=== PATIENT | male | born 1960 | race Caucasian/White ===

== ENCOUNTER 2018-08-04 13:49 | Emergency (ER) | payer MEDICARE ==
[2018-08-04 15:08] LABS: Bilirubin Negative (Negative); Blood, Urine Large (Negative); Clarity TURBID (Clear); Glucose, Urine (Dipstick) Negative (Negative); Leukocyte Large (Negative); Nitrite Positive (Negative); Protein, Urine (Dipstick) 100 mg/dL (Neg-Trace); Specific Gravity, Urine 1.011 (1.002-1.036); pH, Urine 8.5 (5.0-9.0)
[2018-08-04 15:10] LABS: Bacteria/HPF 4+ HPF (None Seen)
[2018-08-04 15:16] LABS: Pathc Cast-AUWi Flag 12.03 (0-2.49); Yeast-AUWi Flag 156.8 (0-25.0)
[2018-08-04 15:26] LABS: Crystals/HPF 3+ AMORPH PHOS HPF (Negative); Hyaline Casts/LPF 0-3 HYALINE CAST LPF (0-3 Hyaline); Yeast-All Forms None Seen HPF (None Seen)
[2018-08-04 15:33] LABS: #Eosinphils 0.2 thou/uL (0.0-0.7); #Lymphocytes 0.7 thou/uL (1.20-3.40); #Monocytes 0.5 thou/uL (0.11-0.59); #Neutrophils 7.1 thou/uL (1.40-6.50); %Basophils 0.2 % (0.0-1.0); %Eosinophils 2.3 % (0.0-10.0); %Lymphocytes 8.2 % (21.0-51.0); %Monocytes 5.9 % (0.0-10.0); %Neutrophils 83.3 % (42.0-75.0); Mean Corpuscular HGB CONC 33.9 g/dL (32.0-36.0); Mean Corpuscular Hemoglobin 31.6 pg (27.0-31.0); Mean Corpuscular Volume 93.1 fL (78.0-98.0); Mean Platelet Volume 7.6 fL (7.4-10.4); Platelet Count 298 thou/uL (130-400); RBC Distribution Width 12.4 % (11.5-14.5); Red Blood Cell (RBC) Count 4.13 mill/uL (4.70-6.10); White Blood Cell (WBC) Count 8.6 thou/uL (4.8-10.8)
[2018-08-04 15:53] LABS: ALT (SGPT) 17 U/L (8-55); AST (SGOT) 18 U/L (5-34); Alkaline Phosphatase 98 U/L (40-150); Anion Gap 14 mmol/L (10-20); BUN (Urea Nitrogen) 14 mg/dL (8.4-25.7); Bilirubin, Total 0.5 mg/dL (0.2-1.2); Calc. Creatinine Clearance 0 mL/min (70-130); Calcium 9.4 mg/dL (7.8-10.44); Carbon Dioxide 23 mmol/L (22-29); Chloride 102 mmol/L (98-107); Estimated GFR-MDRD Greater than 90; Globulin 3.6 g/dL (2.4-3.5); Glucose 103 mg/dL (70-105); Potassium 3.7 mmol/L (3.5-5.1); Protein, Total 7.6 g/dL (6.0-8.3); Sodium 135 mmol/L (136-145)
== END 2018-08-04 17:14 | disposition home or self-care (01) ==
LOC: ERS 13:49
DX: Z46.6 Encounter for fitting and adjustment of urinary device (principal); N39.0 Urinary tract infection, site not specified; I10 Essential (primary) hypertension
CPT/HCPCS: 36415; 51702; 80053; 81003; 81015; 83605; 85025; 87077; 87086; 87186

== ENCOUNTER 2018-08-06 16:37 | Emergency (ER) | payer MEDICARE | END 2018-08-06 17:54 | disposition home or self-care (01) | LOC: ERS 16:37 | DX: T83.031A Leakage of indwelling urethral catheter, initial encounter (principal); I10 Essential (primary) hypertension; F17.220 Nicotine dependence, chewing tobacco, uncomplicated; Z79.899 Other long term (current) drug therapy | CPT/HCPCS: 99283 ==

== ENCOUNTER 2018-08-07 13:12 | Emergency (ER) | payer MEDICARE ==
[2018-08-07 15:01] LABS: Bilirubin Negative (Negative); Blood, Urine Small (Negative); Clarity CLEAR (Clear); Glucose, Urine (Dipstick) Negative (Negative); Leukocyte Small (Negative); Nitrite Negative (Negative); Protein, Urine (Dipstick) Negative (Neg-Trace); Specific Gravity, Urine 1.003 (1.002-1.036); Urobilinogen 0.2 mg/dL (0.2-1.0)
[2018-08-07 15:03] LABS: Bacteria/HPF None Seen HPF (None Seen); Hyaline Casts/LPF 0-3 HYALINE CAST LPF (0-3 Hyaline); Pathc Cast-AUWi Flag 0.29 (0-2.49); RBC/HPF 0-3 HPF (0-3); Squamous Epithelial 0-3 HPF (0-3); WBC/HPF 0-3 HPF (0-3)
== END 2018-08-07 15:20 | disposition home or self-care (01) ==
LOC: ERS 13:12
DX: R32 Unspecified urinary incontinence (principal); I10 Essential (primary) hypertension; F17.220 Nicotine dependence, chewing tobacco, uncomplicated
CPT/HCPCS: 51702; 81003; 81015; 87086

== ENCOUNTER 2020-05-17 14:16 | Emergency (ER) | payer MEDICARE | END 2020-05-17 17:25 | disposition home or self-care (01) | LOC: ERS 14:16 | DX: L89.152 Pressure ulcer of sacral region, stage 2 (principal); I10 Essential (primary) hypertension; Z86.73 Personal history of transient ischemic attack (TIA), and cerebral infarction without residual deficits; F32.9 Major depressive disorder, single episode, unspecified; F17.220 Nicotine dependence, chewing tobacco, uncomplicated; Z79.899 Other long term (current) drug therapy | CPT/HCPCS: 99283 ==

== ENCOUNTER 2020-06-27 15:37 | Inpatient (IN) | payer MEDICARE ==
[~2020-06-27 15:37] MED LIST: Iopamidol-370 76% 500 ML 1 ML ONE
[2020-06-27] MEDS ORDERED: Heparin 1,000 UNITS/ML VIAL ONE (16:08)
[2020-06-27 18:10] LABS: #Eosinphils 0.2 thou/uL (0.0-0.7); #Lymphocytes 0.7 thou/uL (1.20-3.40); #Monocytes 0.5 thou/uL (0.11-0.59); %Basophils 0.3 % (0.0-1.0); %Lymphocytes 8.6 % (21.0-51.0); %Monocytes 6.1 % (0.0-10.0); %Neutrophils 83.1 % (42.0-75.0); Hemoglobin 14.2 g/dL (14.0-18.0); Mean Corpuscular HGB CONC 34.1 g/dL (32.0-36.0); Mean Corpuscular Hemoglobin 32.7 pg (27.0-31.0); Mean Corpuscular Volume 95.9 fL (78.0-98.0); Mean Platelet Volume 6.6 fL (7.4-10.4); Platelet Count 457 thou/uL (130-400); RBC Distribution Width 11.4 % (11.5-14.5); Red Blood Cell (RBC) Count 4.33 mill/uL (4.70-6.10); White Blood Cell (WBC) Count 8.5 thou/uL (4.8-10.8)
[2020-06-27 18:35] LABS: ALT (SGPT) 7 U/L (8-55); AST (SGOT) 12 U/L (5-34); Albumin 3.7 g/dL (3.5-5.0); Alkaline Phosphatase 110 U/L (40-110); Anion Gap 17 mmol/L (10-20); BUN (Urea Nitrogen) 13 mg/dL (8.4-25.7); Bilirubin, Total 0.2 mg/dL (0.2-1.2); Calc. Creatinine Clearance 0 mL/min (70-130); Carbon Dioxide 22 mmol/L (22-29); Chloride 100 mmol/L (98-107); Globulin 3.8 g/dL (2.4-3.5); Glucose 107 mg/dL (70-105); Potassium 3.7 mmol/L (3.5-5.1); Protein, Total 7.5 g/dL (6.0-8.3); Sodium 135 mmol/L (136-145)
[2020-06-27] MEDS ORDERED: Clindamycin/D5W 900 mg/50 ml Premix Bag ONE ×2 (20:46→20:47)
--- NOTE | 2020-06-27 20:53 | CT ---
CT ABDOMEN WITH CONTRAST CT PELVIS WITH CONTRAST: DATE: 06/27/2020 HISTORY: 59-year-old male with sacral ulcer COMPARISON: None TECHNIQUE: IV injection of iodinated contrast media: administered. Oral contrast media:Not administered FINDINGS: There is a superficial soft tissue defect consistent with ulcer, at the intergluteal fold, with skin thickening, contiguous with an approximately 4 x 1 x 4 cm slightly low-attenuation lesion surrounded by thick irregular soft tissue attenuation, between the coccyx and the intergluteal fold. The soft tissue density material fans out right and left laterally, with surrounding fat stranding. No kaylah bone destruction identified involving sacrum or coccyx. Multilevel high-grade degenerative disc disease and facet DJD throughout lumbar spine. No compression fracture. Moderate to large volume of stool throughout rectosigmoid colon. No free fluid or abscess within the pelvic cavity. No major pathology of kidneys, adrenals, pancreas, liver, or spleen. Normal appendix. Nonspecific mild mural thickening of urinary bladder. No consolidation at lung bases. No pleural effusion. No small bowel dilation or colonic diverticulitis. IMPRESSION: 1) sacral decubitus ulcer, deep to which there is phlegmon or abscess in the soft tissues around and posterior to the sacrococcygeal junction and coccyx. 2) high-grade lumbar spondylosis
[2020-06-27] MEDS ORDERED: Piperacillin/Tazobactam 4.5 GM VIAL ONE (21:51)
[2020-06-27] MEDS ORDERED: Communication Order-Pharmacy FS SCH (22:04)
--- NOTE | 2020-06-27 22:38 | PDOC.BPN ---
- Brief Progress Note [id number] HP
--- NOTE | 2020-06-27 23:19 | HP ---
CHIEF COMPLAINT: Infected/nonhealing sacral wound. HISTORY OF PRESENT ILLNESS: Mr. Rodriguez is a 59-year-old male, with history of CVA and complicated right knee surgery in the past that has left him debilitated and unable to walk, bedridden. The patient's daughter reports that he started having breakdown near the sacral area over the last week or 2 that gradually worsened, spread, involving the gluteal cleft and surrounding tissues. It was also reported that the patient had foul smelling discharge. The patient also reported breakdown of the right posterior heel and the medial heel from prolonged immobility. The patient has been doing well as per daughter. No reported fever or chills. Workup in the emergency room including CT abdomen and pelvis showed sacral decubitus ulcer, deep, which the phlegmon or abscess is in the soft tissues around and posterior to the sacrococcygeal junction and coccyx. Also did show high-grade lumbar stenosis. Lab work, the patient has a sodium of 135, BUN 13, creatinine 0.6, glucose 107. Lactic acid 1.9. WBC is 9.5, hemoglobin 14.2, platelets 457. The patient is having speech issues/aphasia, unable to give any history. The ED physician consulted with surgeon, who will see the patient for consultation. The patient is on IV antibiotics. The patient has been admitted to the hospital for further management. PAST MEDICAL HISTORY: 1. CVA with residual aphasia and weakness. 2. Hypertension. 3. Gout. PAST SURGICAL HISTORY: Knee surgery, right knee x2. FAMILY HISTORY: Reviewed and noncontributory. HOME MEDICATIONS: Please see home medication reconciliation form for updated medications. PAST PSYCHIATRIC HISTORY: Depression. SOCIAL HISTORY: No history of drug use or alcohol use. The patient is a former tobacco user, chews tobacco. Quit smoking less than 10 years ago. FAMILY HISTORY: Reviewed and noncontributory. ALLERGIES: NO KNOWN ALLERGIES. REVIEW OF SYSTEMS: Unable to obtain due to the patient's underlying medical condition. PHYSICAL EXAMINATION: GENERAL: The patient is awake, aphasic, unable to give any history. VITAL SIGNS: Blood pressure 140/90, pulse is 86, respiratory rate is 18, oxygen saturation is 100% on room air, and temperature is 99.2. HEAD AND NECK: Normocephalic. NECK: Supple. CHEST: Fair bilateral air entry. HEART: S1, S2. Regular. ABDOMEN: Soft and nontender. Bowel sounds present. NEUROLOGIC: The patient is awake, aphasic, weak in four extremities. SKIN: There is a right posterior heel with skin breakdown, nonpitting edema in the right leg, skin breakdown/ulcer with discharge, sacral area, with surrounding erythema. GENITOURINARY: No suprapubic tenderness. No flank tenderness. LABORATORY DATA: As mentioned above in the history of present illness. IMAGING STUDIES: As mentioned above in the history of present illness. ASSESSMENT: 1. Infected/nonhealing sacral decubitus wound/ulcer. 2. History of cerebrovascular accident with residual weakness and failure. 3. Hypertension. 4. Gout. PLAN: 1. Admit. 2. Septic workup including wound cultures. 3. IV antibiotics. 4. Surgery consulted for further management. 5. Consult Wound Care. 6. Reconcile home medications. 7. DVT prophylaxis as appropriate. 8. Expected length of stay, 2 midnights or more. 9. Case discussed with ED physician and the patient's daughter. Job ID: [id number]
[2020-06-28 00:37] VITALS: BMI 38.9
[2020-06-28] MEDS: Sodium Chloride 0.9% 1,000 ML IV SCH ×2 (01:00→12:44)
[2020-06-28] MEDS: Clindamycin/D5W 600 MG in Premix Bag 1 BAG IVPB SCH ×3 (06:21→20:55)
--- NOTE | 2020-06-28 08:22 | CON ---
DATE OF CONSULTATION: 06/28/2020 CHIEF COMPLAINT: Septic decubitus of sacrum. HISTORY OF PRESENT ILLNESS: The patient is a 59-year-old male with a history of CVA, who is unable to ambulate, he is bedbound, he has developed a decubitus ulcer on his sacrum which has become very necrotic. I have been asked to see him for debridement. PAST MEDICAL HISTORY: Significant for hypertension, gout, and history of CVA. PAST SURGICAL HISTORY: Knee surgery. MEDICATIONS: Include: 1. Flonase. 2. Finasteride. 3. Calan. 4. Omeprazole. 5. Lasix. PHYSICAL EXAMINATION: VITAL SIGNS: Temperature 98.4, pulse 73, blood pressure 105/70. GENERAL: He will respond to voice. He is pretty lethargic. Lying still. He is obese. LUNGS: Clear. HEART: Regular rate and rhythm. ABDOMEN: Soft, nondistended, nontender. BACK: He has about a 15-cm sacral decubitus with necrotic tissue. EXTREMITIES: Unremarkable. DIAGNOSTIC STUDIES: His CT scan showed some fluid collections consistent with possible abscess. ASSESSMENT: Septic decubitus. PLAN: Debridement. Job ID: [id number]
[2020-06-28] MEDS: Cefepime 2 GM in Sodium Chloride 0.9% 100 ML IVPB SCH ×2 (09:10→20:54)
[2020-06-28] MEDS ORDERED: Rocuronium Bromide 10 MG/ML (10ML VIAL) ONE (11:26)
[2020-06-28] MEDS ORDERED: Lidocaine 1% PF 5 ML VIAL ONE (11:26)
[2020-06-28] MEDS ORDERED: Dexamethasone 20 MG/5 ML VIAL ONE (11:26)
[2020-06-28] MEDS ORDERED: PROPOFOL 200 MG/20 ML VIAL ONE (11:26)
[2020-06-28 13:07] LABS: SARS-CoV-2 MS2 Positive; SARS-CoV-2 N Gene Negative; SARS-CoV-2 S Gene Negative; SARS-CoV-2 by NAA Not Detected (NotDetected); SARS-CoV-2 orf1ab Negative
[2020-06-28] MEDS ORDERED: Clindamycin/D5W 600 mg/50 ml Premix Bag ONE (14:52)
[2020-06-28] MEDS ORDERED: Fentanyl 250 MCG/5 ML VIAL ONE (15:04)
[2020-06-28] MEDS ORDERED: Morphine 4 MG/ML VIAL SLOW IVP SCH (16:00)
[2020-06-28] MEDS ORDERED: Ondansetron HCl/PF 4 MG/2 ML Vial IVP PRN (16:07)
[2020-06-28] MEDS ORDERED: Promethazine HCl 25 MG/ML VIAL IM PRN (16:07)
[2020-06-28] MEDS ORDERED: HYDROmorphone 2 MG/ML VIAL SLOW IVP PRN (16:07)
[2020-06-28] MEDS ORDERED: Promethazine HCl 25 MG/ML VIAL SLOW IVP PRN (16:07)
--- NOTE | 2020-06-28 19:14 | OP ---
DATE OF PROCEDURE: 06/28/2020 PREOPERATIVE DIAGNOSIS: Septic sacral decubitus. PROCEDURE PERFORMED: Sharp debridement of sacral decubitus. INDICATIONS: This is a 59-year-old male who is status post CVA, bedridden, developed a sacral decubitus. FINDINGS: 6 x 8 x 4 cm necrotic decubitus to the periosteum. DESCRIPTION OF PROCEDURE: After informed consent was obtained, the patient was taken to the operating room, given general endotracheal anesthesia, placed in the right lateral decubitus position. His gluteal area was prepped and draped in usual fashion. Using 10 blade, 15 blade bone rongeurs, the necrotic tissue was sharply debrided, got into a little fluid which was sent for culture. The necrotic tissue was completely excised down to bleeding tissue. Bleeding was then controlled utilizing electrocautery, and the wound was thoroughly irrigated with saline. The cavity was measured at 8 x 6 x 4 cm deep. Surgicel was then applied to the cavities of the lining and then dry sterile gauze. The patient tolerated the procedure well, transferred to Recovery in fair condition. Job ID: [id number]
--- NOTE | 2020-06-28 20:25 | PDOC.HOSPP ---
- Subjective Encounter Date: 06/28/20 - Objective Vital Signs & Weight: Vital Signs (12 hours) Temp Pulse Resp BP Pulse Ox 06/28/20 19:54 98.7 F 68 19 100/67 94 L 06/28/20 11:30 98.4 F 77 20 109/73 95 Weight Admit Weight 220 lb 2 oz Weight 220 lb 2 oz I&O: 06/27/20 06/28/20 06/29/20 06:59 06:59 06:59 Intake Total 1650 1140 Balance 1650 1140 Result Diagrams: 06/27/20 17:50 06/27/20 17:50 Hospitalist ROS - Medication Medications: Active Medications Generic Name Dose Route Start Last Admin Trade Name Freq PRN Reason Stop Dose Admin Sodium Chloride 1,000 mls @ 75 mls/hr 06/27/20 22:15 06/28/20 12:44 Normal Saline 0.9% IV Not Given .[id number] SUZANNA Cefepime HCl 2 gm/ Sodium 100 mls @ 200 mls/hr 06/28/20 09:00 06/28/20 09:10 Chloride IVPB 100 mls Q12HR SUZANNA Administration Clindamycin Phosphate/Dextrose 50 mls @ 100 mls/hr 06/28/20 06:00 06/28/20 15:29 600 mg/ Device IVPB Not Given Q8HR SUZANNA Sodium Chloride 10 ml 06/28/20 09:00 06/28/20 09:16 Flush - Normal Saline 10 Ml Syringe IVF Not Given Q12HR SUZANNA - Exam General Appearance: awake alert ENT: normocephalic atraumatic Neck: supple, no JVD Respiratory: normal chest expansion, no tachypnea Gastrointestinal: soft Extremities: no cyanosis, no clubbing Hosp A/P (1) Sacral decubitus ulcer Code(s): L89.159 - PRESSURE ULCER OF SACRAL REGION, UNSPECIFIED STAGE Status: Acute (2) H/O: CVA (cerebrovascular accident) Code(s): Z86.73 - PRSNL HX OF TIA (TIA), AND CEREB INFRC W/O RESID DEFICITS Status: Acute (3) HTN (hypertension) Code(s): I10 - ESSENTIAL (PRIMARY) HYPERTENSION Status: Acute - Plan S/P Debridement of the decubitus ulcer. Wound care consult. On emperic ABx.
[2020-06-29] MEDS: Sodium Chloride 0.9% 1,000 ML IV SCH ×3 (04:31→20:05)
[2020-06-29 05:22] LABS: #Lymphocytes 0.7 thou/uL (1.20-3.40); #Monocytes 0.3 thou/uL (0.11-0.59); #Neutrophils 5.7 thou/uL (1.40-6.50); %Basophils 0.6 % (0.0-1.0); %Eosinophils 0.1 % (0.0-10.0); %Lymphocytes 10.6 % (21.0-51.0); %Monocytes 4.5 % (0.0-10.0); %Neutrophils 84.1 % (42.0-75.0); Hemoglobin 11.8 g/dL (14.0-18.0); Mean Corpuscular HGB CONC 34.4 g/dL (32.0-36.0); Mean Corpuscular Hemoglobin 32.7 pg (27.0-31.0); Mean Corpuscular Volume 95.1 fL (78.0-98.0); Mean Platelet Volume 6.5 fL (7.4-10.4); Platelet Count 410 thou/uL (130-400); RBC Distribution Width 11.2 % (11.5-14.5); Red Blood Cell (RBC) Count 3.61 mill/uL (4.70-6.10); White Blood Cell (WBC) Count 6.7 thou/uL (4.8-10.8)
[2020-06-29 05:34] LABS: Anion Gap 13 mmol/L (10-20); BUN (Urea Nitrogen) 9 mg/dL (8.4-25.7); Calc. Creatinine Clearance 195 mL/min (70-130); Calcium 8.8 mg/dL (7.8-10.44); Carbon Dioxide 24 mmol/L (22-29); Chloride 103 mmol/L (98-107); Glucose 101 mg/dL (70-105); Sodium 136 mmol/L (136-145)
[2020-06-29] MEDS: Clindamycin/D5W 600 MG in Premix Bag 1 BAG IVPB SCH ×3 (05:48→21:42)
[2020-06-29] MEDS: Cefepime 2 GM in Sodium Chloride 0.9% 100 ML IVPB SCH ×2 (10:04→20:05)
[2020-06-29] MEDS: Morphine 2 MG/ML VIAL SLOW IVP PRN ×2 (10:31→18:32)
--- NOTE | 2020-06-29 14:01 | PDOC.HOSPP ---
- Subjective Encounter Date: 06/29/20 - Objective Vital Signs & Weight: Vital Signs (12 hours) Temp Pulse Resp BP Pulse Ox 06/29/20 12:20 97.8 F 70 18 132/84 99 06/29/20 07:51 98.3 F 59 L 18 125/81 98 06/29/20 04:53 98.3 F 65 19 107/73 95 Weight Admit Weight 220 lb 2 oz Weight 220 lb 2 oz I&O: 06/28/20 06/29/20 06/30/20 06:59 06:59 06:59 Intake Total 1649 2039 Balance 1649 2039 Result Diagrams: 06/29/20 05:00 06/29/20 05:00 Hospitalist ROS - Medication Medications: Active Medications Generic Name Dose Route Start Last Admin Trade Name Freq PRN Reason Stop Dose Admin Sodium Chloride 1,000 mls @ 75 mls/hr 06/27/20 22:15 06/29/20 04:31 Normal Saline 0.9% IV Not Given .[id number] SUZANNA Cefepime HCl 2 gm/ Sodium 100 mls @ 200 mls/hr 06/28/20 09:00 06/29/20 10:04 Chloride IVPB 100 mls Q12HR SUZANNA Administration Clindamycin Phosphate/Dextrose 50 mls @ 100 mls/hr 06/28/20 06:00 06/29/20 05:48 600 mg/ Device IVPB 50 mls Q8HR SUZANNA Administration Morphine Sulfate 2 mg 06/28/20 15:57 06/29/20 10:31 Morphine 2 Mg/Ml Vial SLOW IVP 2 mg Q4H PRN Administration Mild-Moderate Pain (1-5) Sodium Chloride 10 ml 06/28/20 09:00 06/29/20 10:10 Flush - Normal Saline 10 Ml Syringe IVF Not Given Q12HR SUZANNA - Exam General Appearance: awake alert ENT: normocephalic atraumatic Neck: supple, no JVD Respiratory: normal chest expansion, no tachypnea Extremities: no cyanosis, no clubbing Neurological: cranial nerve grossly intact Hosp A/P (1) Sacral decubitus ulcer Code(s): L89.159 - PRESSURE ULCER OF SACRAL REGION, UNSPECIFIED STAGE Status: Acute (2) H/O: CVA (cerebrovascular accident) Code(s): Z86.73 - PRSNL HX OF TIA (TIA), AND CEREB INFRC W/O RESID DEFICITS Status: Acute (3) HTN (hypertension) Code(s): I10 - ESSENTIAL (PRIMARY) HYPERTENSION Status: Acute - Plan S/P Debridement of the decubitus ulcer postoperative day 1. No signs of sepsis. Continue wound care. On emperic ABx. Restart enoxaparin for DVT prophylaxis this evening.
[2020-06-29] MEDS: Enoxaparin Sodium 40 MG/0.4 ML SYRINGE SC SCH (20:05)
[2020-06-30 06:12] LABS: #Eosinphils 0.1 thou/uL (0.0-0.7); #Lymphocytes 1.3 thou/uL (1.20-3.40); #Monocytes 0.5 thou/uL (0.11-0.59); #Neutrophils 3.3 thou/uL (1.40-6.50); %Basophils 0.5 % (0.0-1.0); %Eosinophils 1.9 % (0.0-10.0); %Lymphocytes 24.9 % (21.0-51.0); %Monocytes 9.8 % (0.0-10.0); Hemoglobin 10.9 g/dL (14.0-18.0); Mean Corpuscular HGB CONC 33.9 g/dL (32.0-36.0); Mean Corpuscular Volume 94.3 fL (78.0-98.0); Mean Platelet Volume 6.1 fL (7.4-10.4); Platelet Count 371 thou/uL (130-400); RBC Distribution Width 11.4 % (11.5-14.5); Red Blood Cell (RBC) Count 3.41 mill/uL (4.70-6.10); White Blood Cell (WBC) Count 5.2 thou/uL (4.8-10.8)
[2020-06-30] MEDS: Clindamycin/D5W 600 MG in Premix Bag 1 BAG IVPB SCH ×3 (06:24→21:14)
[2020-06-30 06:35] LABS: Anion Gap 12 mmol/L (10-20); BUN (Urea Nitrogen) 9 mg/dL (8.4-25.7); Calc. Creatinine Clearance 186 mL/min (70-130); Calcium 8.3 mg/dL (7.8-10.44); Carbon Dioxide 25 mmol/L (22-29); Chloride 106 mmol/L (98-107); Glucose 87 mg/dL (70-105); Potassium 3.5 mmol/L (3.5-5.1); Sodium 139 mmol/L (136-145)
[2020-06-30] MEDS: Cefepime 2 GM in Sodium Chloride 0.9% 100 ML IVPB SCH ×2 (09:02→21:15)
--- NOTE | 2020-06-30 17:47 | PDOC.HOSPP ---
- Subjective Encounter Date: 06/30/20 Subjective: No new complaints today. - Objective Vital Signs & Weight: Vital Signs (12 hours) Temp Pulse Resp BP Pulse Ox 06/30/20 15:10 98.7 F 74 20 94/59 L 97 06/30/20 11:15 98.1 F 74 14 93/64 95 06/30/20 08:50 96 06/30/20 07:40 98.1 F 63 16 91/57 L 96 Weight Admit Weight 220 lb 2 oz Weight 220 lb 2 oz I&O: 06/29/20 06/30/20 07/01/20 06:59 06:59 06:59 Intake Total 0 2700 810 Balance 2039 2700 810 Result Diagrams: 06/30/20 05:58 06/30/20 05:58 Hospitalist ROS - Medication Medications: Active Medications Generic Name Dose Route Start Last Admin Trade Name Freq PRN Reason Stop Dose Admin Enoxaparin Sodium 40 mg 06/29/20 21:00 06/29/20 20:05 Enoxaparin Sodium 40 Mg/0.4 Ml Syringe SC 40 mg 2100 SUZANNA Administration Sodium Chloride 1,000 mls @ 75 mls/hr 06/27/20 22:15 06/29/20 20:05 Normal Saline 0.9% IV 1,000 mls .[id number] SUZANNA Administration Cefepime HCl 2 gm/ Sodium 100 mls @ 200 mls/hr 06/28/20 09:00 06/30/20 09:02 Chloride IVPB 100 mls Q12HR SUZANNA Administration Clindamycin Phosphate/Dextrose 50 mls @ 100 mls/hr 06/28/20 06:00 06/30/20 13:19 600 mg/ Device IVPB 50 mls Q8HR SUZANNA Administration Morphine Sulfate 2 mg 06/28/20 15:57 06/29/20 18:32 Morphine 2 Mg/Ml Vial SLOW IVP 2 mg Q4H PRN Administration Mild-Moderate Pain (1-5) Sodium Chloride 10 ml 06/28/20 09:00 06/30/20 09:02 Flush - Normal Saline 10 Ml Syringe IVF 10 ml Q12HR SUZANNA Administration - Exam General Appearance: NAD ENT: normocephalic atraumatic Neck: supple, no JVD Heart: RRR Respiratory: normal chest expansion, no tachypnea Gastrointestinal: soft Extremities: no cyanosis, no clubbing Hosp A/P (1) Sacral decubitus ulcer Code(s): L89.159 - PRESSURE ULCER OF SACRAL REGION, UNSPECIFIED STAGE Status: Acute (2) H/O: CVA (cerebrovascular accident) Code(s): Z86.73 - PRSNL HX OF TIA (TIA), AND CEREB INFRC W/O RESID DEFICITS Status: Acute (3) HTN (hypertension) Code(s): I10 - ESSENTIAL (PRIMARY) HYPERTENSION Status: Acute - Plan S/P Debridement of the decubitus ulcer postoperative day 2. No signs of sepsis. Continue wound care. Wound culture showing multibacterial growth. Awaiting sensitivity data. On emperic ABx. Continue enoxaparin for DVT prophylaxis.
[2020-06-30] MEDS: Sodium Chloride 0.9% 1,000 ML IV SCH (18:23)
[2020-06-30] MEDS: Enoxaparin Sodium 40 MG/0.4 ML SYRINGE SC SCH (21:15)
[2020-07-01] MEDS: Clindamycin/D5W 600 MG in Premix Bag 1 BAG IVPB SCH ×2 (05:55→15:23)
[2020-07-01 06:35] LABS: #Eosinphils 0.2 thou/uL (0.0-0.7); #Lymphocytes 1.4 thou/uL (1.20-3.40); #Monocytes 0.4 thou/uL (0.11-0.59); #Neutrophils 2.9 thou/uL (1.40-6.50); %Basophils 0.2 % (0.0-1.0); %Eosinophils 3.8 % (0.0-10.0); %Lymphocytes 28.4 % (21.0-51.0); %Monocytes 8.8 % (0.0-10.0); %Neutrophils 58.8 % (42.0-75.0); Hemoglobin 11.2 g/dL (14.0-18.0); Mean Corpuscular HGB CONC 33.8 g/dL (32.0-36.0); Mean Corpuscular Hemoglobin 32.2 pg (27.0-31.0); Mean Corpuscular Volume 95.3 fL (78.0-98.0); Mean Platelet Volume 6.4 fL (7.4-10.4); Platelet Count 393 thou/uL (130-400); RBC Distribution Width 11.6 % (11.5-14.5); Red Blood Cell (RBC) Count 3.47 mill/uL (4.70-6.10)
[2020-07-01 06:51] LABS: Anion Gap 13 mmol/L (10-20); BUN (Urea Nitrogen) 7 mg/dL (8.4-25.7); Calc. Creatinine Clearance 198 mL/min (70-130); Calcium 8.4 mg/dL (7.8-10.44); Carbon Dioxide 23 mmol/L (22-29); Chloride 106 mmol/L (98-107); Glucose 81 mg/dL (70-105); Potassium 3.7 mmol/L (3.5-5.1); Sodium 138 mmol/L (136-145)
[2020-07-01] MEDS: Sodium Chloride 0.9% 1,000 ML IV SCH (07:29)
[2020-07-01] MEDS: Cefepime 2 GM in Sodium Chloride 0.9% 100 ML IVPB SCH ×2 (08:28→21:22)
[2020-07-01] MEDS ORDERED: Polyethylene Glycol 3350 17 GM Packet PO PRN (14:06)
--- NOTE | 2020-07-01 14:09 | PDOC.HOSPP ---
- Subjective Encounter Date: 07/01/20 (f/u sacral ulcer) Encounter Time: 14:07 Subjective: Pt is without complaints. Overnight liu cath was placed due to the amount of urine that collected/concern of further skin breakdown. Wound vac is in place. Last BM per RN was Jun 27. Home meds have not been resumed. - Objective Vital Signs & Weight: Vital Signs (12 hours) Temp Pulse Resp BP Pulse Ox 07/01/20 11:24 98.3 F 67 18 119/83 98 07/01/20 08:21 98.1 F 64 18 116/76 97 07/01/20 08:20 97 07/01/20 03:50 98.7 F 75 18 120/76 98 Weight Admit Weight 220 lb 2 oz Weight 220 lb 2 oz I&O: 06/30/20 07/01/20 07/02/20 06:59 06:59 06:59 Intake Total 2700 2365 Output Total 550 Balance 2700 1815 Result Diagrams: 07/01/20 06:13 07/01/20 06:13 Hospitalist ROS - Medication Medications: Active Medications Generic Name Dose Route Start Last Admin Trade Name Freq PRN Reason Stop Dose Admin Enoxaparin Sodium 40 mg 06/29/20 21:00 06/30/20 21:15 Enoxaparin Sodium 40 Mg/0.4 Ml Syringe SC 40 mg 2100 SUZANNA Administration Cefepime HCl 2 gm/ Sodium 100 mls @ 200 mls/hr 06/28/20 09:00 07/01/20 08:28 Chloride IVPB 100 mls Q12HR SUZANNA Administration Clindamycin Phosphate/Dextrose 50 mls @ 100 mls/hr 06/28/20 06:00 07/01/20 05:55 600 mg/ Device IVPB 50 mls Q8HR SUZANNA Administration Morphine Sulfate 2 mg 06/28/20 15:57 06/29/20 18:32 Morphine 2 Mg/Ml Vial SLOW IVP 2 mg Q4H PRN Administration Mild-Moderate Pain (1-5) Sodium Chloride 10 ml 06/28/20 09:00 07/01/20 08:28 Flush - Normal Saline 10 Ml Syringe IVF 10 ml Q12HR SUZANNA Administration - Exam General Appearance: NAD Heart: RRR, no murmur Respiratory: CTAB, no wheezes, no rales, no ronchi Gastrointestinal: soft, non-tender, normal bowel sounds Extremities: no cyanosis, no clubbing, no edema Neurological - other findings: no movement of RLE, some movement of LLE, Strength RUE>LUE Hosp A/P (1) Sacral decubitus ulcer Code(s): L89.159 - PRESSURE ULCER OF SACRAL REGION, UNSPECIFIED STAGE Status: Acute (2) Bedbound Code(s): Z74.01 - BED CONFINEMENT STATUS Status: Chronic (3) H/O: CVA (cerebrovascular accident) Code(s): Z86.73 - PRSNL HX OF TIA (TIA), AND CEREB INFRC W/O RESID DEFICITS Status: Chronic (4) HTN (hypertension) Code(s): I10 - ESSENTIAL (PRIMARY) HYPERTENSION Status: Chronic - Plan Sacral ulcer s/p debridement on Jun - on cefepime with polymicrobial growth on wound cx - continue wound vac/wound care - ID consult for abx planning Hx of HTN = bp's normal, hold home meds of diltiazem and furosemide BPH - resume home finasteride Resume home prozac Case management consult for d/c planning -SNF vs home health dvt prophy - lovenox gi prophy - not indicated Reviewed plan of care with patient/RN, no questions or further needs at end of eval.
--- NOTE | 2020-07-01 19:32 | CON ---
DATE OF CONSULTATION: 07/01/2020 REASON FOR CONSULTATION: Presacral decubitus ulcer. HISTORY OF PRESENT ILLNESS: A 59-year-old with history of prior CVA, hypertension, and expressive aphasia, who has severe mobility impairment and unable to ambulate for many months now. He developed a sacral decubitus ulcer and was brought because of changes indicative of infection at the site including odor and drainage. He also has a heel deep tissue injury on the right side. No headaches, visual symptoms, sore throat, odynophagia, or dysphagia. No dyspnea or chest pain. No abdominal pain. He was voiding in the diaper, but indwelling Navarro was inserted, probably right before the surgery. It was not very easy to interview this gentleman. He keeps his eyes closed and just answers with very short monosyllabic answers. Does not elaborate on his answers and most of the questions he does not answer at all and he follows commands only after some insistence. PAST MEDICAL HISTORY: Prior CVA, mobility impairment, expressive aphasia, and hypertension. PAST SURGICAL HISTORY: Right knee replacement. SOCIAL HISTORY: Former smoker and he also used to chew tobacco. I think he lives with family. ALLERGIES: NONE. CURRENT MEDICATIONS: 1. Cefepime. 2. Clindamycin. 3. Enoxaparin. 4. Fluticasone. 5. Pantoprazole. PHYSICAL EXAMINATION: VITAL SIGNS: Temperature has been normal, blood pressure 120/80, heart rate 73, respiratory rate 16, and O2 saturation 98. SKIN: On admission, he had this area of pressure injury with an unstable round 2.5 cm in length ulcer with black eschar covering the tissue. Surrounding this, there is some element of fresh epidermolysis with red tissue. On the opposite side, there is some areas of skin necrosis superficial and then an area of red ulcerated ulcer base, irregular shaped, those areas are right at the intergluteal fold. Few other areas of superficial ulceration noted above this region. In addition to that, there is a left-sided area of pressure damage, which appears to be superficial. There is a linear area of superficial skin necrosis. In the right side, there is a deeper area of deep tissue injury with a kind of yellowish necrotic appearance of the skin, unstageable at this point in time. He is saturating 98 on room air. He has no lymphadenopathy. Peripheral IV access. Navarro catheter. HEENT: Ocular movements are conjugate. Pupils 2 mm and reactive. Oral cavity with quite a few teeth in place with some decay. Oral mucosa is normal. NECK: Supple. No jugular vein distention. LUNGS: Symmetric clear breath sounds. HEART: S1 and S2. Regular rate. No S3. ABDOMEN: Moderately distended, but no fluid wave is identified. No tenderness. No bladder distention. No organomegaly. EXTREMITIES: He keeps his right lower extremity in flexion. Looks like he does have some element of spasticity and the plantar responses on the right side are extensor and flexor on the left. Pulses are 1+ in dorsalis pedis. NEUROLOGIC: He is awake, but he is not very interactive. His answers are monosyllabic. I am not sure, if this is secondary to his neurological residual impairment. LABORATORY DATA: White cell count is stable at 5.0, hemoglobin 11, MCV 95, platelets 393, and normal differential. Chemistry with a sodium 138 and creatinine 0.58. Liver profile normal. Albumin 3.7 and globulin 3.8. SARS-CoV-2 not detected. IMAGING: Abdomen and pelvis CT with sacral decubitus ulcer. No evidence of destructive changes in the bones. [id number] volume of stool throughout rectosigmoid colon. No abscess in the pelvic cavity. Dr. Lion carried out a surgical debridement on June 28 and necrotic tissue was sharply debrided. Little bit of fluid was sent for culture and excision was carried out to bleeding tissue. No mention was made of bone exposure. The cavity size measured 8 x 6 x 4 cm. ASSESSMENT AND PLAN: Cerebrovascular accident with mobility impairment and spasticity in lower extremities, bed ridden state with decubitus ulcers in the presacral region and right heel area is unstageable, though the sacral region is stage 3 to 4. No mention was made of bone exposure by the surgeon. The microbiology revealed mostly gram-negative rods. Anaerobic pathogens are possible if not likely. We will add Flagyl and d/c Cleocin. Continue cefepime and adjust therapy once we have the final susceptibility results from the one of the samples. We will have to clarify with Wound Care if there is bone exposure or not, that will make a big difference in terms of the discharge planning. The heel needs imaging and initial management with off-loading and observation although i+d might be needed. Job ID: [id number] [facility]
[2020-07-01] MEDS: Fluticasone Propionate Nasal Spray 16 gm Bottle NASAL SCH (21:21)
[2020-07-01] MEDS: Enoxaparin Sodium 40 MG/0.4 ML SYRINGE SC SCH (21:22)
[2020-07-01] MEDS: metroNIDAZOLE 500 MG TAB PO SCH (21:22)
[2020-07-01] MEDS: Senokot S 8.6-50 MG TAB PO SCH (23:54)
[2020-07-02 06:01] LABS: #Eosinphils 0.2 thou/uL (0.0-0.7); #Lymphocytes 1.5 thou/uL (1.20-3.40); #Monocytes 0.4 thou/uL (0.11-0.59); #Neutrophils 3.6 thou/uL (1.40-6.50); %Basophils 0.5 % (0.0-1.0); %Lymphocytes 26.3 % (21.0-51.0); %Monocytes 6.5 % (0.0-10.0); %Neutrophils 63.8 % (42.0-75.0); Hemoglobin 12.1 g/dL (14.0-18.0); Mean Corpuscular HGB CONC 34.7 g/dL (32.0-36.0); Mean Corpuscular Hemoglobin 32.7 pg (27.0-31.0); Mean Corpuscular Volume 94.3 fL (78.0-98.0); Mean Platelet Volume 6.4 fL (7.4-10.4); Platelet Count 408 thou/uL (130-400); RBC Distribution Width 11.3 % (11.5-14.5); White Blood Cell (WBC) Count 5.6 thou/uL (4.8-10.8)
[2020-07-02 06:17] LABS: Anion Gap 12 mmol/L (10-20); BUN (Urea Nitrogen) 7 mg/dL (8.4-25.7); Calc. Creatinine Clearance 213 mL/min (70-130); Carbon Dioxide 25 mmol/L (22-29); Chloride 105 mmol/L (98-107); Glucose 81 mg/dL (70-105); Sodium 138 mmol/L (136-145)
--- NOTE | 2020-07-02 08:49 | PDOC.HOSPP ---
- Subjective Encounter Date: 07/02/20 (f/u sacral ulcer) Encounter Time: 08:47 Subjective: No overnight events per RN/Tamara. Last recorded BM 06/27. Navarro remains in place - placed 06/30 due to significant moisture collection and concern for further skin breakdown. - Objective Vital Signs & Weight: Vital Signs (12 hours) Temp Pulse Resp BP Pulse Ox 07/02/20 07:42 98.1 F 65 18 120/83 95 07/02/20 04:05 98.4 F 68 14 115/75 94 L 07/01/20 23:49 98.3 F 73 113/79 95 07/01/20 21:22 94 L Weight Admit Weight 220 lb 2 oz Weight 220 lb 2 oz I&O: 07/01/20 07/02/20 07/03/20 06:59 06:59 06:59 Intake Total 2365 1250 Output Total 550 4450 Balance 1815 -3200 Result Diagrams: 07/02/20 05:47 07/02/20 05:47 Hospitalist ROS - Medication Medications: Active Medications Generic Name Dose Route Start Last Admin Trade Name Freq PRN Reason Stop Dose Admin Enoxaparin Sodium 40 mg 06/29/20 21:00 07/01/20 21:22 Enoxaparin Sodium 40 Mg/0.4 Ml Syringe SC 40 mg 2100 SUZANNA Administration Fluticasone Propionate 0 gm 07/01/20 21:00 07/01/20 21:21 Fluticasone Propionate Nasal [place] 16 Gm Bottle NASAL 1 spr BID SUZANNA Administration Cefepime HCl 2 gm/ Sodium 100 mls @ 200 mls/hr 06/28/20 09:00 07/01/20 21:22 Chloride IVPB 100 mls Q12HR SUZANNA Administration Metronidazole 500 mg 07/01/20 21:00 07/01/20 21:22 Metronidazole 500 Mg Tab PO 500 mg TID SUZANNA Administration Morphine Sulfate 2 mg 06/28/20 15:57 06/29/20 18:32 Morphine 2 Mg/Ml Vial SLOW IVP 2 mg Q4H PRN Administration Mild-Moderate Pain (1-5) Senna/Docusate Sodium 1 tab 07/01/20 21:00 07/01/20 23:54 Senokot S 8.6-50 Mg Tab PO Not Given BID SUZANNA Sodium Chloride 10 ml 06/28/20 09:00 07/01/20 23:55 Flush - Normal Saline 10 Ml Syringe IVF Not Given Q12HR SUZANNA Sodium Chloride 10 ml 06/27/20 22:30 07/01/20 21:24 Flush - Normal Saline 10 Ml Syringe IVF 10 ml PRN PRN Administration Saline Flush - Exam General Appearance: NAD Heart: RRR, no murmur Respiratory: CTAB, no wheezes, no rales, no ronchi Gastrointestinal: soft, non-tender, non-distended, normal bowel sounds Extremities: no cyanosis, no clubbing, no edema Psychiatric - other findings: oriented to person - unchanged Hosp A/P (1) Sacral decubitus ulcer Code(s): L89.159 - PRESSURE ULCER OF SACRAL REGION, UNSPECIFIED STAGE Status: Acute (2) Bedbound Code(s): Z74.01 - BED CONFINEMENT STATUS Status: Chronic (3) H/O: CVA (cerebrovascular accident) Code(s): Z86.73 - PRSNL HX OF TIA (TIA), AND CEREB INFRC W/O RESID DEFICITS Status: Chronic (4) HTN (hypertension) Code(s): I10 - ESSENTIAL (PRIMARY) HYPERTENSION Status: Chronic (5) Constipation Code(s): K59.00 - CONSTIPATION, UNSPECIFIED Status: Acute - Plan Sacral ulcer s/p debridement on Jun - - continue wound vac/wound care - Appreciate ID consult - no on cefepime and flagyl - await further culture results - only one is completed - will add florastor daily Hx of HTN - bp's remain normal - no indication to resume hme meds of diltiazem and furosemide Home meds finasteride and prozac resumed yesterday Case management consult placed yesterday for d/c planning -SNF vs home health. Will need final recommendations from Dr. Marin with regards to antibiotics type and duration. Constipation - add prn lactulose - continue scheduled doc-senna - change miralax to daily dvt prophy - lovenox gi prophy - not indicated Reviewed plan of care with RN, no questions or further needs at end of eval.
[2020-07-02] MEDS: metroNIDAZOLE 500 MG TAB PO SCH ×3 (08:51→21:54)
[2020-07-02] MEDS: Fluticasone Propionate Nasal Spray 16 gm Bottle NASAL SCH ×2 (08:51→21:53)
[2020-07-02] MEDS: Finasteride 5 MG TAB PO SCH (08:51)
[2020-07-02] MEDS: FLUoxetine HCl 20 MG CAP PO SCH (08:51)
[2020-07-02] MEDS: Cefepime 2 GM in Sodium Chloride 0.9% 100 ML IVPB SCH ×2 (08:51→21:54)
[2020-07-02] MEDS: Polyethylene Glycol 3350 17 GM Packet PO SCH (08:58)
[2020-07-02] MEDS: Saccharomyces boulardii 250 MG CAP PO SCH (08:59)
[2020-07-02] MEDS: Senokot S 8.6-50 MG TAB PO SCH ×2 (08:59→21:54)
[2020-07-02] MEDS: Enoxaparin Sodium 40 MG/0.4 ML SYRINGE SC SCH (21:54)
[2020-07-03] MEDS: Cefepime 2 GM in Sodium Chloride 0.9% 100 ML IVPB SCH (08:12)
[2020-07-03] MEDS: Fluticasone Propionate Nasal Spray 16 gm Bottle NASAL SCH ×2 (08:13→21:09)
[2020-07-03] MEDS: Finasteride 5 MG TAB PO SCH (08:13)
[2020-07-03] MEDS: Senokot S 8.6-50 MG TAB PO SCH ×2 (08:13→21:10)
[2020-07-03] MEDS: Saccharomyces boulardii 250 MG CAP PO SCH (08:13)
[2020-07-03] MEDS: FLUoxetine HCl 20 MG CAP PO SCH (08:13)
[2020-07-03] MEDS: metroNIDAZOLE 500 MG TAB PO SCH ×3 (08:13→21:09)
[2020-07-03] MEDS: Polyethylene Glycol 3350 17 GM Packet PO SCH (08:13)
[2020-07-03] MEDS: Morphine 2 MG/ML VIAL SLOW IVP PRN (09:26)
--- NOTE | 2020-07-03 12:43 | PDOC.HOSPP ---
- Subjective Encounter Date: 07/03/20 Encounter Time: 12:41 Subjective: alert but slow. denies any problem - Objective Vital Signs & Weight: Vital Signs (12 hours) Temp Pulse Resp BP Pulse Ox 07/03/20 11:10 98.3 F 84 18 97/67 95 07/03/20 07:25 98.1 F 64 18 98/63 98 07/03/20 03:50 97.8 F 67 18 109/79 97 Weight Admit Weight 220 lb 2 oz Weight 220 lb 2 oz I&O: 07/02/20 07/03/20 07/04/20 06:59 06:59 06:59 Intake Total 1250 2780 Output Total 2650 3649 Balance -7381 -7731 Result Diagrams: 07/02/20 05:47 07/02/20 05:47 Hospitalist ROS - Medication Medications: Active Medications Generic Name Dose Route Start Last Admin Trade Name Freq PRN Reason Stop Dose Admin Enoxaparin Sodium 40 mg 06/29/20 21:00 07/02/20 21:54 Enoxaparin Sodium 40 Mg/0.4 Ml Syringe SC 40 mg 2100 SUZANNA Administration Finasteride 5 mg 07/02/20 09:00 07/03/20 08:13 Finasteride 5 Mg Tab PO 5 mg DAILY SUZANNA Administration Fluoxetine HCl 20 mg 07/02/20 09:00 07/03/20 08:13 Fluoxetine Hcl 20 Mg Cap PO 20 mg DAILY SUZANNA Administration Fluticasone Propionate 0 gm 07/01/20 21:00 07/03/20 08:13 Fluticasone Propionate Nasal [place] 16 Gm Bottle NASAL 1 spr BID SUZANNA Administration Metronidazole 500 mg 07/01/20 21:00 07/03/20 08:13 Metronidazole 500 Mg Tab PO 500 mg TID SUZANNA Administration Morphine Sulfate 2 mg 06/28/20 15:57 07/03/20 09:26 Morphine 2 Mg/Ml Vial SLOW IVP 2 mg Q4H PRN Administration Mild-Moderate Pain (1-5) Pantoprazole Sodium 40 mg 07/02/20 09:00 07/03/20 08:13 Pantoprazole 40 Mg Tab PO 40 mg DAILY SUZANNA Administration Polyethylene Glycol 17 gm 07/02/20 09:00 07/03/20 08:13 Polyethylene Glycol 3350 17 Gm Packet PO 17 gm DAILY SUZANNA Administration Saccharomyces Boulardii 250 mg 07/02/20 09:00 07/03/20 08:13 Saccharomyces Boulardii 250 Mg Cap PO 250 mg DAILY SUZANNA Administration Senna/Docusate Sodium 1 tab 07/01/20 21:00 07/03/20 08:13 Senokot S 8.6-50 Mg Tab PO 1 tab BID SUZANNA Administration Sodium Chloride 10 ml 06/28/20 09:00 07/03/20 08:14 Flush - Normal Saline 10 Ml Syringe IVF 10 ml Q12HR SUZANNA Administration Sodium Chloride 10 ml 06/27/20 22:30 07/01/20 21:24 Flush - Normal Saline 10 Ml Syringe IVF 10 ml PRN PRN Administration Saline Flush - Exam General Appearance: awake alert Neck: no JVD Heart: RRR, no murmur Respiratory: CTAB Gastrointestinal: non-tender, non-distended, normal bowel sounds Extremities: no edema Extremities - other findings: bandaged R heel Hosp A/P (1) Sacral decubitus ulcer Code(s): L89.159 - PRESSURE ULCER OF SACRAL REGION, UNSPECIFIED STAGE Status: Acute Qualifiers: Pressure injury stage: stage 4 Qualified Code(s): L89.154 - Pressure ulcer of sacral region, stage 4 (2) Bedbound Code(s): Z74.01 - BED CONFINEMENT STATUS Status: Chronic (3) H/O: CVA (cerebrovascular accident) Code(s): Z86.73 - PRSNL HX OF TIA (TIA), AND CEREB INFRC W/O RESID DEFICITS Status: Chronic (4) HTN (hypertension) Code(s): I10 - ESSENTIAL (PRIMARY) HYPERTENSION Status: Chronic Qualifiers: Hypertension type: essential hypertension Qualified Code(s): I10 - Esse ntial (primary) hypertension - Plan cont iv flagyl, deescalate cephalosporin to rocephine based on sensitivities XR R foot cont wound care discuss with surgery and ID
[2020-07-03] MEDS ORDERED: cefTRIAXone\\ROCEPHIN 1 GM in Sodium Chloride 0.9% 100 ML IVPB SCH (14:00)
--- NOTE | 2020-07-03 14:37 | RAD ---
RIGHT HEEL 2 VIEWS: Date; 07/03/2020 HISTORY: Wound suspicious for chronic process. FINDINGS/IMPRESSION: A plantar calcaneal spur is present. The calcaneus is intact. No fracture, bony destruction, or perio steal reaction is seen. There is no radiographic evidence of osteomyelitis. POS: OFF
--- NOTE | 2020-07-03 16:46 | PRG ---
DATE OF SERVICE: 07/03/2020 SUBJECTIVE: Mr. Rodriguez does not have any distress. No abdominal pain. No diarrhea. OBJECTIVE: VITAL SIGNS: Temperature is normal, BP 197/67, heart rate 84, breathing 18 times a minute, O2 saturation 95. GENERAL: Does not appear in distress. HEENT: Ocular movements are conjugate. LUNGS: Clear. HEART: S1 and S2, regular rate. ABDOMEN: Soft. Not distended or tender. No ascites. No bladder distention. LABORATORY DATA: Microbiology, 4 different anaerobes, Morganella and Proteus and E coli. Heel x-ray with intact calcaneus, no destructive changes seen. ASSESSMENT AND DISCUSSION: CVA, mobility impairment, spasticity in lower extremities, bedridden state with decubitus ulcers in the sacral region and right heel area, multiple anaerobes beyond gram-negative rods. The patient to continue on cefepime and Flagyl, extend for duration of 6 weeks, end date of therapy will be the end of July. Weekly labs. Complex wound care management. Job ID: [id number]
[2020-07-03] MEDS: Enoxaparin Sodium 40 MG/0.4 ML SYRINGE SC SCH (21:09)
[2020-07-04] MEDS: Saccharomyces boulardii 250 MG CAP PO SCH (10:31)
[2020-07-04] MEDS: Finasteride 5 MG TAB PO SCH (10:31)
[2020-07-04] MEDS: metroNIDAZOLE 500 MG TAB PO SCH ×3 (10:31→21:31)
[2020-07-04] MEDS: FLUoxetine HCl 20 MG CAP PO SCH (10:31)
[2020-07-04] MEDS: Senokot S 8.6-50 MG TAB PO SCH ×2 (10:31→21:31)
[2020-07-04] MEDS: Fluticasone Propionate Nasal Spray 16 gm Bottle NASAL SCH ×2 (10:32→21:30)
[2020-07-04] MEDS: Polyethylene Glycol 3350 17 GM Packet PO SCH (10:32)
[2020-07-04] MEDS ORDERED: Cefepime 2 GM in Sodium Chloride 0.9% 100 ML IVPB SCH (11:00)
--- NOTE | 2020-07-04 14:19 | PDOC.HOSPP ---
- Subjective Encounter Date: 07/04/20 Encounter Time: 14:08 Subjective: alert, expresses no complaints - Objective Vital Signs & Weight: Vital Signs (12 hours) Temp Pulse Resp BP Pulse Ox 07/04/20 12:02 98.4 F 78 20 118/83 95 07/04/20 08:10 96 07/04/20 07:35 98.6 F 74 18 107/63 96 07/04/20 03:30 98.7 F 89 16 124/81 94 L Weight Admit Weight 220 lb 2 oz Weight 220 lb 2 oz I&O: 07/03/20 07/04/20 07/05/20 06:59 06:59 06:59 Intake Total 2780 1210 Output Total 422 2300 Balance -9588 -0762 Result Diagrams: 07/02/20 05:47 07/02/20 05:47 Hospitalist ROS - Medication Medications: Active Medications Generic Name Dose Route Start Last Admin Trade Name Freq PRN Reason Stop Dose Admin Enoxaparin Sodium 40 mg 06/29/20 21:00 07/03/20 21:09 Enoxaparin Sodium 40 Mg/0.4 Ml Syringe SC 40 mg 2100 SUZANNA Administration Finasteride 5 mg 07/02/20 09:00 07/04/20 10:31 Finasteride 5 Mg Tab PO 5 mg DAILY SUZANNA Administration Fluoxetine HCl 20 mg 07/02/20 09:00 07/04/20 10:31 Fluoxetine Hcl 20 Mg Cap PO 20 mg DAILY SUZANNA Administration Fluticasone Propionate 0 gm 07/01/20 21:00 07/04/20 10:32 Fluticasone Propionate Nasal [place] 16 Gm Bottle NASAL 1 spr BID SUZANNA Administration Metronidazole 500 mg 07/01/20 21:00 07/04/20 10:31 Metronidazole 500 Mg Tab PO 500 mg TID SUZANNA Administration Morphine Sulfate 2 mg 06/28/20 15:57 07/03/20 09:26 Morphine 2 Mg/Ml Vial SLOW IVP 2 mg Q4H PRN Administration Mild-Moderate Pain (1-5) Pantoprazole Sodium 40 mg 07/02/20 09:00 07/04/20 10:31 Pantoprazole 40 Mg Tab PO 40 mg DAILY SUZANNA Administration Polyethylene Glycol 17 gm 07/02/20 09:00 07/04/20 10:32 Polyethylene Glycol 3350 17 Gm Packet PO Not Given DAILY SUZANNA Saccharomyces Boulardii 250 mg 07/02/20 09:00 07/04/20 10:31 Saccharomyces Boulardii 250 Mg Cap PO 250 mg DAILY SUZANNA Administration Senna/Docusate Sodium 1 tab 07/01/20 21:00 07/04/20 10:31 Senokot S 8.6-50 Mg Tab PO 1 tab BID SUZANNA Administration Sodium Chloride 10 ml 06/28/20 09:00 07/04/20 10:32 Flush - Normal Saline 10 Ml Syringe IVF Not Given Q12HR SUZANNA Sodium Chloride 10 ml 06/27/20 22:30 07/01/20 21:24 Flush - Normal Saline 10 Ml Syringe IVF 10 ml PRN PRN Administration Saline Flush - Exam General Appearance: awake alert Neck: no JVD Heart: RRR, no murmur Respiratory: CTAB Gastrointestinal: soft, no palpable masses Extremities: no edema Hosp A/P (1) Sacral decubitus ulcer Code(s): L89.159 - PRESSURE ULCER OF SACRAL REGION, UNSPECIFIED STAGE Status: Acute Qualifiers: Pressure injury stage: stage 4 Qualified Code(s): L89.154 - Pressure ulcer of sacral region, stage 4 (2) Bedbound Code(s): Z74.01 - BED CONFINEMENT STATUS Status: Chronic (3) H/O: CVA (cerebrovascular accident) Code(s): Z86.73 - PRSNL HX OF TIA (TIA), AND CEREB INFRC W/O RESID DEFICITS Status: Chronic (4) HTN (hypertension) Code(s): I10 - ESSENTIAL (PRIMARY) HYPERTENSION Status: Chronic Qualifiers: Hypertension type: essential hypertension Qualified Code(s): I10 - Essential (primary) hypertension - Plan cont iv flagyl, cfepime XR R foot reveals no osseous lesion, cont local care cont wound care PICC line for out patient antibx
--- NOTE | 2020-07-04 16:15 | SPC ---
PICC PLACEMENT ULTRASOUND-GUIDED VENOUS ACCESS: (Peripherally inserted central catheter) DATE: 07/04/2020 HISTORY: 59-year-old male with sacral decubitus ulcer TECHNIQUE: Catheter caliber: 5 K[place]ili Catheter trim length:51 cm Catheter lumen number:single Catheter tip location:right atrium Vein accessed:left brachial (the more medial of a double brachial system). Total fluoroscopy time: 0.8 min. Dose area product: 5895 mGy*cm^2 Signed, informed consent was obtained. A tourniquet was applied at the proximal aspect of the arm. Th e arm was prepped and draped in the usual sterile fashion. A 25-gauge needle was used to applied buffered lidocaine superficially. The vein was punctured with a 21-gauge micropuncture needle under u ltrasound guidance. A 0.018 inch guidewire was advanced through the micropuncture needle and into the vein. Under fluoroscopic guidance, the guidewire was advanced to the superior vena cava. The PICC was flushed and trimmed to the appropriate length. The micropuncture needle was exchanged over the guidewire for a 5 [place]ili peel-away dilator sheath. The dilator was exchanged over the guidewire for t he PICC, which was then further advanced under fluoroscopy. The sheath and guidewire were removed. The PICC was flushed again and secured in place at the arm after adjustment of tip position. The gabriela ent tolerated the procedure well. There was no complication. IMPRESSION: Successful placement of PICC (peripherally inserted central catheter).
[2020-07-04] MEDS: Cefepime 2 GM in Sodium Chloride 0.9% 100 ML IVPB SCH (17:16)
[2020-07-04] MEDS ORDERED: Cefepime 2 MG in Syringe 0 ML IVPB SCH (21:00)
[2020-07-04] MEDS: Enoxaparin Sodium 40 MG/0.4 ML SYRINGE SC SCH (21:31)
[2020-07-05] MEDS: Cefepime 2 GM in Sodium Chloride 0.9% 100 ML IVPB SCH ×2 (04:51→16:07)
[2020-07-05] MEDS: Fluticasone Propionate Nasal Spray 16 gm Bottle NASAL SCH ×2 (08:44→20:33)
[2020-07-05] MEDS: Polyethylene Glycol 3350 17 GM Packet PO SCH (08:44)
[2020-07-05] MEDS: Saccharomyces boulardii 250 MG CAP PO SCH (08:45)
[2020-07-05] MEDS: metroNIDAZOLE 500 MG TAB PO SCH ×3 (08:45→20:33)
[2020-07-05] MEDS: FLUoxetine HCl 20 MG CAP PO SCH (08:45)
[2020-07-05] MEDS: Senokot S 8.6-50 MG TAB PO SCH ×2 (08:45→20:33)
[2020-07-05] MEDS: Finasteride 5 MG TAB PO SCH (08:45)
--- NOTE | 2020-07-05 15:01 | PDOC.HOSPP ---
- Subjective Encounter Date: 07/05/20 Encounter Time: 14:56 Subjective: no complaints, doing as well as can expected - Objective Vital Signs & Weight: Vital Signs (12 hours) Temp Pulse Resp BP Pulse Ox 07/05/20 10:40 97.9 F 72 16 132/86 94 L 07/05/20 07:10 97.8 F 71 16 114/79 96 07/05/20 04:03 98.9 F 73 16 113/76 94 L Weight Admit Weight 220 lb 2 oz Weight 220 lb 2 oz I&O: 07/04/20 07/05/20 07/06/20 06:59 06:59 06:59 Intake Total 1210 1750 Output Total 2300 2100 Balance -1090 -350 Result Diagrams: 07/02/20 05:47 07/02/20 05:47 Hospitalist ROS - Medication Medications: Active Medications Generic Name Dose Route Start Last Admin Trade Name Freq PRN Reason Stop Dose Admin Enoxaparin Sodium 40 mg 06/29/20 21:00 07/04/20 21:31 Enoxaparin Sodium 40 Mg/0.4 Ml Syringe SC 40 mg 2100 SUZANNA Administration Finasteride 5 mg 07/02/20 09:00 07/05/20 08:45 Finasteride 5 Mg Tab PO 5 mg DAILY SUZANNA Administration Fluoxetine HCl 20 mg 07/02/20 09:00 07/05/20 08:45 Fluoxetine Hcl 20 Mg Cap PO 20 mg DAILY SUZANNA Administration Fluticasone Propionate 0 gm 07/01/20 21:00 07/05/20 08:44 Fluticasone Propionate Nasal [place] 16 Gm Bottle NASAL 1 spr BID SUZANNA Administration Cefepime HCl 2 gm/ Sodium 100 mls @ 200 mls/hr 07/04/20 17:00 07/05/20 04:51 Chloride IVPB 100 mls 0500,1700 SUZANNA Administration Metronidazole 500 mg 07/01/20 21:00 07/05/20 08:45 Metronidazole 500 Mg Tab PO 500 mg TID SUZANNA Administration Morphine Sulfate 2 mg 06/28/20 15:57 07/03/20 09:26 Morphine 2 Mg/Ml Vial SLOW IVP 2 mg Q4H PRN Administration Mild-Moderate Pain (1-5) Pantoprazole Sodium 40 mg 07/02/20 09:00 07/05/20 08:45 Pantoprazole 40 Mg Tab PO 40 mg DAILY SUZANNA Administration Polyethylene Glycol 17 gm 07/02/20 09:00 07/05/20 08:44 Polyethylene Glycol 3350 17 Gm Packet PO 17 gm DAILY SUZANNA Administration Saccharomyces Boulardii 250 mg 07/02/20 09:00 07/05/20 08:45 Saccharomyces Boulardii 250 Mg Cap PO 250 mg DAILY SUZANNA Administration Senna/Docusate Sodium 1 tab 07/01/20 21:00 07/05/20 08:45 Senokot S 8.6-50 Mg Tab PO 1 tab BID SUZANNA Administration Sodium Chloride 10 ml 06/28/20 09:00 07/05/20 08:45 Flush - Normal Saline 10 Ml Syringe IVF 10 ml Q12HR SUZANNA Administration Sodium Chloride 10 ml 06/27/20 22:30 07/01/20 21:24 Flush - Normal Saline 10 Ml Syringe IVF 10 ml PRN PRN Administration Saline Flush - Exam Neck: no JVD Heart: RRR, no murmur Respiratory: CTAB Gastrointestinal: soft, normal bowel sounds Extremities: no edema Extremities - other findings: bandaged lesion on right heel Hosp A/P (1) Sacral decubitus ulcer Code(s): L89.159 - PRESSURE ULCER OF SACRAL REGION, UNSPECIFIED STAGE Status: Acute Qualifiers: Pressure injury stage: stage 4 Qualified Code(s): L89.154 - Pressure ulcer of sacral region, stage 4 (2) Bedbound Code(s): Z74.01 - BED CONFINEMENT STATUS Status: Chronic (3) H/O: CVA (cerebrovascular accident) Code(s): Z86.73 - PRSNL HX OF TIA (TIA), AND CEREB INFRC W/O RESID DEFICITS Status: Chronic (4) HTN (hypertension) Code(s): I10 - ESSENTIAL (PRIMARY) HYPERTENSION Status: Chronic Qualifiers: Hypertension type: essential hypertension Qualified Code(s): I10 - Essentia l (primary) hypertension - Plan PICC line Placed cont iv flagyl, cfepime awaiting approval for outpatient iv antibx cont wound care, outpt care already approved
[2020-07-05] MEDS: Enoxaparin Sodium 40 MG/0.4 ML SYRINGE SC SCH (20:33)
[2020-07-06] MEDS: Cefepime 2 GM in Sodium Chloride 0.9% 100 ML IVPB SCH ×2 (06:29→17:34)
[2020-07-06] MEDS: Fluticasone Propionate Nasal Spray 16 gm Bottle NASAL SCH ×2 (09:11→19:50)
[2020-07-06] MEDS: FLUoxetine HCl 20 MG CAP PO SCH (09:12)
[2020-07-06] MEDS: Senokot S 8.6-50 MG TAB PO SCH ×2 (09:12→19:50)
[2020-07-06] MEDS: Saccharomyces boulardii 250 MG CAP PO SCH (09:12)
[2020-07-06] MEDS: metroNIDAZOLE 500 MG TAB PO SCH ×3 (09:12→19:50)
[2020-07-06] MEDS: Polyethylene Glycol 3350 17 GM Packet PO SCH (09:12)
[2020-07-06] MEDS: Finasteride 5 MG TAB PO SCH (09:12)
--- NOTE | 2020-07-06 11:55 | PDOC.HOSPP ---
- Subjective Encounter Date: 07/06/20 Encounter Time: 11:45 Subjective: f/u for Stage IV sacral and R heel decubitus ulcerations receiving local wound care after sacral debridement 06/28/20. No new complaints per daughter with plans on returning home for extended IV Cefepime/Flagyl for 6 weeks. - Objective Vital Signs & Weight: Vital Signs (12 hours) Temp Pulse Resp BP Pulse Ox 07/06/20 10:56 98.5 F 80 16 113/63 96 07/06/20 07:41 98.3 F 82 16 110/76 98 07/06/20 03:05 98.8 F 83 19 118/80 98 07/06/20 00:19 99.0 F 86 19 114/78 96 Weight Admit Weight 220 lb 2 oz Weight 220 lb 2 oz I&O: 07/05/20 07/06/20 07/07/20 06:59 06:59 06:59 Intake Total 1750 2280 Output Total 2100 2250 Balance -350 30 Result Diagrams: 07/02/20 05:47 07/02/20 05:47 Additional Labs: Microbiology 06/28/20 15:33 Sacral - Ulcer Bacterial Culture - Final 06/28/20 15:33 Sacral - Ulcer Anaerobic Culture - Final Morganella morganii ssp paras Proteus mirabilis Anaerobic Gram Negative Cocci Anaerobic Gram Positive Lexx Anaerobic Gram Negative Lexx Anaerobic Gram Negative Lexx#2 06/28/20 06:00 Sacral Bacterial Culture - Final Presumptive Escherichia coli Gram Negative Lexx#2 Gram Negative Lexx#3 Presumptive Proteus mirabilis 06/27/20 17:55 Venous blood - Left Arm Blood Culture - Final NO GROWTH IN 5 DAYS 06/27/20 17:54 Venous blood - Left Arm Blood Culture - Final NO GROWTH IN 5 DAYS Radiology Reviewed by me: Yes (R heel x-ray - no bony erosion) Hospitalist ROS - Medication Medications: Active Medications Generic Name Dose Route Start Last Admin Trade Name Freq PRN Reason Stop Dose Admin Enoxaparin Sodium 40 mg 06/29/20 21:00 07/05/20 20:33 Enoxaparin Sodium 40 Mg/0.4 Ml Syringe SC 40 mg 2100 SUZANNA Administration Finasteride 5 mg 07/02/20 09:00 07/06/20 09:12 Finasteride 5 Mg Tab PO 5 mg DAILY SUZANNA Administration Fluoxetine HCl 20 mg 07/02/20 09:00 07/06/20 09:12 Fluoxetine Hcl 20 Mg Cap PO 20 mg DAILY SUZANNA Administration Fluticasone Propionate 0 gm 07/01/20 21:00 07/06/20 09:11 Fluticasone Propionate Nasal [place] 16 Gm Bottle NASAL 2 spr BID SUZANNA Administration Cefepime HCl 2 gm/ Sodium 100 mls @ 200 mls/hr 07/04/20 17:00 07/06/20 06:29 Chloride IVPB 100 mls 0500,1700 SUZANNA Administration Metronidazole 500 mg 07/01/20 21:00 07/06/20 09:12 Metronidazole 500 Mg Tab PO 500 mg TID SUZANNA Administration Morphine Sulfate 2 mg 06/28/20 15:57 07/03/20 09:26 Morphine 2 Mg/Ml Vial SLOW IVP 2 mg Q4H PRN Administration Mild-Moderate Pain (1-5) Pantoprazole Sodium 40 mg 07/02/20 09:00 07/06/20 09:12 Pantoprazole 40 Mg Tab PO 40 mg DAILY SUZANNA Administration Polyethylene Glycol 17 gm 07/02/20 09:00 07/06/20 09:12 Polyethylene Glycol 3350 17 Gm Packet PO 17 gm DAILY SUZANNA Administration Saccharomyces Boulardii 250 mg 07/02/20 09:00 07/06/20 09:12 Saccharomyces Boulardii 250 Mg Cap PO 250 mg DAILY SUZANNA Administration Senna/Docusate Sodium 1 tab 07/01/20 21:00 07/06/20 09:12 Senokot S 8.6-50 Mg Tab PO 1 tab BID SUZANNA Administration Sodium Chloride 10 ml 06/28/20 09:00 07/06/20 09:12 Flush - Normal Saline 10 Ml Syringe IVF 10 ml Q12HR SUZANNA Administration Sodium Chloride 10 ml 06/27/20 22:30 07/01/20 21:24 Flush - Normal Saline 10 Ml Syringe IVF 10 ml PRN PRN Administration Saline Flush - Exam General - other findings: somnolent, sleeping Eye: PERRL, anicteric sclera ENT: normocephalic atraumatic, no oropharyngeal lesions Neck: supple, symmetric, no JVD, no thyromegaly, no lymphadenopathy Heart: RRR, no gallops, no rubs, normal peripheral pulses Heart - other findings: S1, S2 Respiratory: CTAB, no wheezes, no rales, no ronchi, normal chest expansion, no tachypnea Gastrointestinal: soft, non-tender, non-distended, normal bowel sounds, no palpable masses Extremities: no cyanosis, no clubbing, no edema Skin: normal turgor Neurological: no new deficit, hemiplegia Neurological - other findings: aphasic, bedbound status Musculoskeletal: generalized weakness Psychiatric: oriented to person, flat affect, somnolent, lethargic Hosp A/P (1) Sacral decubitus ulcer Code(s): L89.159 - PRESSURE ULCER OF SACRAL REGION, UNSPECIFIED STAGE Status: Chronic Plan: s/p I&D 06/28/20, wound vac and local WCT, plan for IV Cefepime/Flagyl up to 6 weeks at home (2) Sepsis due to skin infection Code(s): L03.90 - CELLULITIS, UNSPECIFIED; A41.9 - SEPSIS, UNSPECIFIED ORGANISM Status: Acute Plan: Improved, see #1 above (3) Aphasia as late effect of cerebrovascular accident Code(s): I69.320 - APHASIA FOLLOWING CEREBRAL INFARCTION Status: Acute (4) HTN (hypertension) Code(s): I10 - ESSENTIAL (PRIMARY) HYPERTENSION Status: Chronic Qualifiers: Hypertension type: essential hypertension Qualified Code(s): I10 - Essential (primary) hypertension Plan: BP meds on hold due to normal BP readings - Plan plan discussed w/ family, continue antibiotics, PT/OT, manager social responsibility, speech therapy, DVT proph w/SCDs Stable currently continue Cefepime/Flagyl WCT for local care, wound vac CM for assistance coordinating outpt infusion services Pain control ? home in 24-48h
[2020-07-06] MEDS: Enoxaparin Sodium 40 MG/0.4 ML SYRINGE SC SCH (19:50)
[2020-07-07] MEDS: Cefepime 2 GM in Sodium Chloride 0.9% 100 ML IVPB SCH ×2 (05:58→17:21)
[2020-07-07] MEDS: Finasteride 5 MG TAB PO SCH (09:54)
[2020-07-07] MEDS: Saccharomyces boulardii 250 MG CAP PO SCH (09:54)
[2020-07-07] MEDS: Polyethylene Glycol 3350 17 GM Packet PO SCH (09:54)
[2020-07-07] MEDS: metroNIDAZOLE 500 MG TAB PO SCH ×3 (09:54→20:29)
[2020-07-07] MEDS: Senokot S 8.6-50 MG TAB PO SCH ×2 (09:54→20:29)
[2020-07-07] MEDS: FLUoxetine HCl 20 MG CAP PO SCH (09:54)
--- NOTE | 2020-07-07 11:03 | PDOC.HOSPP ---
- Subjective Encounter Date: 07/07/20 Encounter Time: 11:00 Subjective: f/u for Stage IV sacral decubitus ulcer s/p debridement 06/28/20 receiving Cefepime/Flagyl. No new issues reported. Awaiting approval for home infusion assistance. - Objective Vital Signs & Weight: Vital Signs (12 hours) Temp Pulse Resp BP Pulse Ox 07/07/20 07:25 98.3 F 73 18 126/82 95 07/07/20 03:44 98.2 F 78 16 119/82 95 07/06/20 23:47 98.5 F 78 16 123/85 96 Weight Admit Weight 220 lb 2 oz Weight 220 lb 2 oz I&O: 07/06/20 07/07/20 07/08/20 06:59 06:59 06:59 Intake Total 2280 450 Output Total 2250 3300 Balance 30 -2850 Result Diagrams: 07/02/20 05:47 07/02/20 05:47 Additional Labs: Microbiology 06/28/20 15:33 Sacral - Ulcer Bacterial Culture - Final 06/28/20 15:33 Sacral - Ulcer Anaerobic Culture - Final Morganella morganii ssp paras Proteus mirabilis Anaerobic Gram Negative Cocci Anaerobic Gram Positive Lexx Anaerobic Gram Negative Lexx Anaerobic Gram Negative Lexx#2 06/28/20 06:00 Sacral Bacterial Culture - Final Presumptive Escherichia coli Gram Negative Lexx#2 Gram Negative Lexx#3 Presumptive Proteus mirabilis 06/27/20 17:55 Venous blood - Left Arm Blood Culture - Final NO GROWTH IN 5 DAYS 06/27/20 17:54 Venous blood - Left Arm Blood Culture - Final NO GROWTH IN 5 DAYS Hospitalist ROS - Medication Medications: Active Medications Generic Name Dose Route Start Last Admin Trade Name Freq PRN Reason Stop Dose Admin Enoxaparin Sodium 40 mg 06/29/20 21:00 07/06/20 19:50 Enoxaparin Sodium 40 Mg/0.4 Ml Syringe SC 40 mg 2100 SUZANNA Administration Finasteride 5 mg 07/02/20 09:00 07/07/20 09:54 Finasteride 5 Mg Tab PO 5 mg DAILY SUZANNA Administration Fluoxetine HCl 20 mg 07/02/20 09:00 07/07/20 09:54 Fluoxetine Hcl 20 Mg Cap PO 20 mg DAILY SUZANNA Administration Fluticasone Propionate 0 gm 07/01/20 21:00 11/26/20 19:50 Fluticasone Propionate Nasal [place] 16 Gm Bottle NASAL 1 spr BID SUZANNA Administration Cefepime HCl 2 gm/ Sodium 100 mls @ 200 mls/hr 07/04/20 17:00 07/07/20 05:58 Chloride IVPB 100 mls 0500,1700 SUZANNA Administration Metronidazole 500 mg 07/01/20 21:00 07/07/20 09:54 Metronidazole 500 Mg Tab PO 500 mg TID SUZANNA Administration Morphine Sulfate 2 mg 06/28/20 15:57 07/03/20 09:26 Morphine 2 Mg/Ml Vial SLOW IVP 2 mg Q4H PRN Administration Mild-Moderate Pain (1-5) Pantoprazole Sodium 40 mg 07/02/20 09:00 07/07/20 09:54 Pantoprazole 40 Mg Tab PO 40 mg DAILY SUZANNA Administration Polyethylene Glycol 17 gm 07/02/20 09:00 07/07/20 09:54 Polyethylene Glycol 3350 17 Gm Packet PO 17 gm DAILY SUZANNA Administration Saccharomyces Boulardii 250 mg 07/02/20 09:00 07/07/20 09:54 Saccharomyces Boulardii 250 Mg Cap PO 250 mg DAILY SUZANNA Administration Senna/Docusate Sodium 1 tab 07/01/20 21:00 07/07/20 09:54 Senokot S 8.6-50 Mg Tab PO 1 tab BID SUZANNA Administration Sodium Chloride 10 ml 06/28/20 09:00 07/06/20 19:57 Flush - Normal Saline 10 Ml Syringe IVF 10 ml Q12HR SUZANNA Administration Sodium Chloride 10 ml 06/27/20 22:30 07/01/20 21:24 Flush - Normal Saline 10 Ml Syringe IVF 10 ml PRN PRN Administration Saline Flush - Exam General Appearance: ill appearing General - other findings: somnolent, non-verbal Eye: PERRL, anicteric sclera ENT: normocephalic atraumatic, no oropharyngeal lesions Neck: supple, symmetric, no JVD, no thyromegaly, no lymphadenopathy Heart: RRR, no gallops, no rubs, normal peripheral pulses Heart - other findings: S1, S2 Respiratory - other findings: few scattered rhonchi, diminished in bases bilat Gastrointestinal: soft, non-tender, non-distended, normal bowel sounds, no palp able masses Extremities: no cyanosis, no clubbing Skin: normal turgor, no lesions Skin - other findings: R heel ulcer stage II Neurological - other findings: hemiplegic, aphasic, bed-bound status Musculoskeletal: generalized weakness Psychiatric: somnolent, lethargic Hosp A/P (1) Sacral decubitus ulcer Code(s): L89.159 - PRESSURE ULCER OF SACRAL REGION, UNSPECIFIED STAGE Status: Chronic Qualifiers: Pressure injury stage: stage 4 Qualified Code(s): L89.154 - Pressure ulcer of sacral region, stage 4 Plan: s/p I&D on 06/28/20, local WCT, Wound vac, continue Cefepime/Flagyl, turning protocol (2) Sepsis due to skin infection Code(s): L03.90 - CELLULITIS, UNSPECIFIED; A41.9 - SEPSIS, UNSPECIFIED ORGANISM Status: Acute Plan: Resolving (3) Aphasia as late effect of cerebrovascular accident Code(s): I69.320 - APHASIA FOLLOWING CEREBRAL INFARCTION Status: Acute (4) HTN (hypertension) Code(s): I10 - ESSENTIAL (PRIMARY) HYPERTENSION Status: Chronic Qualifiers: Hypertension type: essential hypertension Qualified Code(s): I10 - Essential (primary) hypertension - Plan plan discussed w/ family, continue antibiotics, PT/OT, social media sr strategy manager, speech therapy, DVT proph w/SCDs Stable currently continue Cefepime/Flagyl for 6 weeks total therapy WCT for local care, wound vac CM for assistance coordinating outpt infusion services Pain control ? home in 24-48h
[2020-07-07] MEDS: Fluticasone Propionate Nasal Spray 16 gm Bottle NASAL SCH ×2 (14:33→20:29)
[2020-07-07] MEDS: Enoxaparin Sodium 40 MG/0.4 ML SYRINGE SC SCH (20:29)
[2020-07-08] MEDS: Cefepime 2 GM in Sodium Chloride 0.9% 100 ML IVPB SCH ×2 (04:43→17:16)
--- NOTE | 2020-07-08 08:19 | PDOC.HOSPP ---
- Subjective Encounter Date: 07/08/20 Encounter Time: 11:15 Subjective: No events overnight. Patient not verbalizing. - Objective Vital Signs & Weight: Vital Signs (12 hours) Temp Pulse Resp BP Pulse Ox 07/08/20 04:47 97.6 F 74 18 113/74 98 07/07/20 23:48 98.8 F 74 18 116/76 97 07/07/20 20:30 97 07/07/20 20:28 98.0 F 79 18 124/78 99 Weight Admit Weight 220 lb 2 oz Weight 220 lb 2 oz I&O: 07/07/20 07/08/20 07/09/20 06:59 06:59 06:59 Intake Total 450 2500 Output Total 3300 3300 Balance -2850 -800 Result Diagrams: 07/02/20 05:47 07/02/20 05:47 Hospitalist ROS - Review of Systems ROS unobtainable: due to mental status - Medication Medications: Active Medications Generic Name Dose Route Start Last Admin Trade Name Freq PRN Reason Stop Dose Admin Enoxaparin Sodium 40 mg 06/29/20 21:00 07/07/20 20:29 Enoxaparin Sodium 40 Mg/0.4 Ml Syringe SC 40 mg 2100 SUZANNA Administration Finasteride 5 mg 07/02/20 09:00 07/07/20 09:54 Finasteride 5 Mg Tab PO 5 mg DAILY SUZANNA Administration Fluoxetine HCl 20 mg 07/02/20 09:00 07/07/20 09:54 Fluoxetine Hcl 20 Mg Cap PO 20 mg DAILY SUZANNA Administration Fluticasone Propionate 0 gm 07/01/20 21:00 07/07/20 20:29 Fluticasone Propionate Nasal [place] 16 Gm Bottle NASAL 1 spr BID SUZANNA Administration Cefepime HCl 2 gm/ Sodium 100 mls @ 200 mls/hr 07/04/20 17:00 07/08/20 04:43 Chloride IVPB 100 mls 0500,1700 SUZANNA Administration Metronidazole 500 mg 07/01/20 21:00 07/07/20 20:29 Metronidazole 500 Mg Tab PO 500 mg TID SUZANNA Administration Morphine Sulfate 2 mg 06/28/20 15:57 07/03/20 09:26 Morphine 2 Mg/Ml Vial SLOW IVP 2 mg Q4H PRN Administration Mild-Moderate Pain (1-5) Pantoprazole Sodium 40 mg 07/02/20 09:00 07/07/20 09:54 Pantoprazole 40 Mg Tab PO 40 mg DAILY SUZANNA Administration Polyethylene Glycol 17 gm 07/02/20 09:00 07/07/20 09:54 Polyethylene Glycol 3350 17 Gm Packet PO 17 gm DAILY SUZANNA Administration Saccharomyces Boulardii 250 mg 07/02/20 09:00 07/07/20 09:54 Saccharomyces Boulardii 250 Mg Cap PO 250 mg DAILY SUZANNA Administration Senna/Docusate Sodium 1 tab 07/01/20 21:00 07/07/20 20:29 Senokot S 8.6-50 Mg Tab PO 1 tab BID SUZANNA Administration Sodium Chloride 10 ml 06/28/20 09:00 07/07/20 23:54 Flush - Normal Saline 10 Ml Syringe IVF Not Given Q12HR SUZANNA Sodium Chloride 10 ml 06/27/20 22:30 07/01/20 21:24 Flush - Normal Saline 10 Ml Syringe IVF 10 ml PRN PRN Administration Saline Flush - Exam General Appearance: NAD General - other findings: sleeping ENT: moist mucosa Heart: RRR, no murmur, no gallops, no rubs Respiratory: CTAB, no wheezes, no rales, no ronchi Gastrointestinal: soft, non-tender, non-distended, normal bowel sounds Psychiatric: somnolent Hosp A/P - Plan (1) Sacral decubitus ulcer Code(s): L89.159 - PRESSURE ULCER OF SACRAL REGION, UNSPECIFIED STAGE Status: Chronic Qualifiers: Pressure injury stage: stage 4 Qualified Code(s): L89.154 - Pressure ulcer of sacral region, stage 4 Plan: s/p I&D on 06/28/20, local WCT, Wound vac, continue Cefepime/Flagyl, turning protocol (2) Sepsis due to skin infection Code(s): L03.90 - CELLULITIS, UNSPECIFIED; A41.9 - SEPSIS, UNSPECIFIED ORGANISM Status: Acute Plan: Resolving (3) Aphasia as late effect of cerebrovascular accident Code(s): I69.320 - APHASIA FOLLOWING CEREBRAL INFARCTION Status: Acute (4) HTN (hypertension) Code(s): I10 - ESSENTIAL (PRIMARY) HYPERTENSION Status: Chronic Qualifiers: Hypertension type: essential hypertension Qualified Code(s): I10 - Essential (primary) hypertension Stable currently continue Cefepime/Flagyl for 6 weeks total therapy WCT for local care, wound vac CM for assistance coordinating outpt infusion services Pain control DVT proph: SCDs, Lovenox GI Proph: Protonix Likely home on Friday if can get outpatient infusions set up
[2020-07-08] MEDS: Polyethylene Glycol 3350 17 GM Packet PO SCH (09:49)
[2020-07-08] MEDS: Fluticasone Propionate Nasal Spray 16 gm Bottle NASAL SCH ×2 (09:49→21:09)
[2020-07-08] MEDS: metroNIDAZOLE 500 MG TAB PO SCH ×3 (09:50→21:09)
[2020-07-08] MEDS: Saccharomyces boulardii 250 MG CAP PO SCH (09:50)
[2020-07-08] MEDS: FLUoxetine HCl 20 MG CAP PO SCH (09:50)
[2020-07-08] MEDS: Senokot S 8.6-50 MG TAB PO SCH ×2 (09:50→21:09)
[2020-07-08] MEDS: Finasteride 5 MG TAB PO SCH (09:50)
[2020-07-08] MEDS: Enoxaparin Sodium 40 MG/0.4 ML SYRINGE SC SCH (21:09)
[2020-07-09] MEDS: Cefepime 2 GM in Sodium Chloride 0.9% 100 ML IVPB SCH ×2 (05:11→17:21)
[2020-07-09 08:00] LABS: #Eosinphils 0.1 thou/uL (0.0-0.7); #Lymphocytes 0.7 thou/uL (1.20-3.40); #Monocytes 0.4 thou/uL (0.11-0.59); #Neutrophils 7.6 thou/uL (1.40-6.50); %Basophils 0.2 % (0.0-1.0); %Eosinophils 0.6 % (0.0-10.0); %Lymphocytes 7.8 % (21.0-51.0); %Monocytes 4.8 % (0.0-10.0); %Neutrophils 86.7 % (42.0-75.0); Mean Corpuscular HGB CONC 33.3 g/dL (32.0-36.0); Mean Corpuscular Hemoglobin 31.6 pg (27.0-31.0); Mean Corpuscular Volume 94.9 fL (78.0-98.0); Mean Platelet Volume 8.9 fL (7.4-10.4); Platelet Count 214 thou/uL (130-400); RBC Distribution Width 12.4 % (11.5-14.5); Red Blood Cell (RBC) Count 4.43 mill/uL (4.70-6.10); White Blood Cell (WBC) Count 8.7 thou/uL (4.8-10.8)
[2020-07-09] MEDS: Saccharomyces boulardii 250 MG CAP PO SCH (08:17)
[2020-07-09] MEDS: FLUoxetine HCl 20 MG CAP PO SCH (08:17)
[2020-07-09] MEDS: Finasteride 5 MG TAB PO SCH (08:17)
[2020-07-09] MEDS: metroNIDAZOLE 500 MG TAB PO SCH ×3 (08:17→21:39)
[2020-07-09] MEDS: Polyethylene Glycol 3350 17 GM Packet PO SCH (08:18)
[2020-07-09] MEDS: Fluticasone Propionate Nasal Spray 16 gm Bottle NASAL SCH ×2 (08:18→21:38)
[2020-07-09] MEDS: Senokot S 8.6-50 MG TAB PO SCH ×2 (08:19→21:39)
[2020-07-09 08:21] LABS: Anion Gap 14 mmol/L (10-20); BUN (Urea Nitrogen) 11 mg/dL (8.4-25.7); Calc. Creatinine Clearance 195 mL/min (70-130); Calcium 8.8 mg/dL (7.8-10.44); Carbon Dioxide 19 mmol/L (22-29); Chloride 101 mmol/L (98-107); Glucose 105 mg/dL (70-105); Potassium 3.1 mmol/L (3.5-5.1); Sodium 131 mmol/L (136-145)
--- NOTE | 2020-07-09 11:56 | PDOC.HOSPP ---
- Subjective Encounter Date: 07/09/20 Encounter Time: 11:50 Subjective: f/u for sacral decubitus ulcer s/p I&D 06/28/20. Receiving Cefepime/Flagyl/Wound vac and local care. Awaiting outpt HH infusion/wound care services 07/10/20. - Objective Vital Signs & Weight: Vital Signs (12 hours) Temp Pulse Resp BP Pulse Ox 07/09/20 11:43 98.6 F 94 16 138/94 H 95 07/09/20 08:17 98.5 F 76 16 149/98 H 93 L 07/09/20 03:52 97.9 F 75 16 143/92 H 94 L 07/09/20 00:07 98.4 F 73 16 135/91 H 95 Weight Admit Weight 220 lb 2 oz Weight 220 lb 2 oz I&O: 07/08/20 07/09/20 07/10/20 06:59 06:59 06:59 Intake Total 2500 3002 Output Total 3300 1325 Balance -800 1677 Result Diagrams: 07/09/20 07:42 07/09/20 07:42 Additional Labs: Microbiology 06/28/20 15:33 Sacral - Ulcer Bacterial Culture - Final 06/28/20 15:33 Sacral - Ulcer Anaerobic Culture - Final Morganella morganii ssp paras Proteus mirabilis Anaerobic Gram Negative Cocci Anaerobic Gram Positive Lexx Anaerobic Gram Negative Lexx Anaerobic Gram Negative Lexx#2 06/28/20 06:00 Sacral Bacterial Culture - Final Presumptive Escherichia coli Gram Negative Lexx#2 Gram Negative Lexx#3 Presumptive Proteus mirabilis 06/27/20 17:55 Venous blood - Left Arm Blood Culture - Final NO GROWTH IN 5 DAYS 06/27/20 17:54 Venous blood - Left Arm Blood Culture - Final NO GROWTH IN 5 DAYS Hospitalist ROS - Medication Medications: Active Medications Generic Name Dose Route Start Last Admin Trade Name Freq PRN Reason Stop Dose Admin Enoxaparin Sodium 40 mg 06/29/20 21:00 07/08/20 21:09 Enoxaparin Sodium 40 Mg/0.4 Ml Syringe SC 40 mg 2100 SUZANNA Administration Finasteride 5 mg 07/02/20 09:00 07/09/20 08:17 Finasteride 5 Mg Tab PO 5 mg DAILY SUZANNA Administration Fluoxetine HCl 20 mg 07/02/20 09:00 11/29/20 08:17 Fluoxetine Hcl 20 Mg Cap PO 20 mg DAILY SUZANNA Administration Fluticasone Propionate 0 gm 07/01/20 21:00 07/09/20 08:18 Fluticasone Propionate Nasal [place] 16 Gm Bottle NASAL Not Given BID SUZANNA Cefepime HCl 2 gm/ Sodium 100 mls @ 200 mls/hr 07/04/20 17:00 07/09/20 05:11 Chloride IVPB 100 mls 0500,1700 SUZANNA Administration Lactulose 20 gm 07/02/20 08:47 07/08/20 17:17 Lactulose 20 Gm/30 Ml Udcup PO 20 gm DAILYPRN PRN Administration Constipation Metronidazole 500 mg 07/01/20 21:00 07/09/20 08:17 Metronidazole 500 Mg Tab PO 500 mg TID SUZANNA Administration Pantoprazole Sodium 40 mg 07/02/20 09:00 07/09/20 08:18 Pantoprazole 40 Mg Tab PO 40 mg DAILY SUZANNA Administration Polyethylene Glycol 17 gm 07/02/20 09:00 07/09/20 08:18 Polyethylene Glycol 3350 17 Gm Packet PO 17 gm DAILY SUZANNA Administration Saccharomyces Boulardii 250 mg 07/02/20 09:00 07/09/20 08:17 Saccharomyces Boulardii 250 Mg Cap PO 250 mg DAILY SUZANNA Administration Senna/Docusate Sodium 1 tab 07/01/20 21:00 07/09/20 08:19 Senokot S 8.6-50 Mg Tab PO 1 tab BID SUZANNA Administration Sodium Chloride 10 ml 06/28/20 09:00 07/09/20 08:19 Flush - Normal Saline 10 Ml Syringe IVF 10 ml Q12HR SUZANNA Administration Sodium Chloride 10 ml 06/27/20 22:30 07/01/20 21:24 Flush - Normal Saline 10 Ml Syringe IVF 10 ml PRN PRN Administration Saline Flush - Exam General Appearance: NAD General - other findings: non-verbal Eye: PERRL, anicteric sclera ENT: normocephalic atraumatic, no oropharyngeal lesions Neck: supple, symmetric, no JVD, no thyromegaly, no lymphadenopathy Heart: RRR, no gallops, no rubs, normal peripheral pulses Heart - other findings: S1, S2 Respiratory - other findings: diminished in bases bilat, few scattered rhonchi Gastrointestinal: soft, non-tender, non-distended, normal bowel sounds, no palpable masses Extremities: no cyanosis, no clubbing Skin - other findings: sacral decubitus/R heel stage II ulcer Neurological: no new deficit Neurological - other findings: non-verbal Musculoskeletal: generalized weakness Psychiatric: flat affect, somnolent, lethargic Hosp A/P (1) Sacral decubitus ulcer Code(s): L89.159 - PRESSURE ULCER OF SACRAL REGION, UNSPECIFIED STAGE Status: Chronic Qualifiers: Pressure injury stage: stage 4 Qualified Code(s): L89.154 - Pressure ulcer of sacral region, stage 4 Plan: s/p I&D 06/28/20, wound vac, WCT, continue Cefepime/Flagyl for total 6 weeks as outpt (2) Sepsis due to skin infection Code(s): L03.90 - CELLULITIS, UNSPECIFIED; A41.9 - SEPSIS, UNSPECIFIED ORGANISM Status: Acute (3) Aphasia as late effect of cerebrovascular accident Code(s): I69.320 - APHASIA FOLLOWING CEREBRAL INFARCTION Status: Acute (4) HTN (hypertension) Code(s): I10 - ESSENTIAL (PRIMARY) HYPERTENSION Status: Chronic Qualifiers: Hypertension type: essential hypertension Qualified Code(s): I10 - Essential (primary) hypertension - Plan continue antibiotics, PT/OT, social director, speech therapy, DVT proph w/SCDs Stable currently continue Cefepime/Flagyl for 6 weeks total therapy WCT for local care, wound vac for assistance coordinating outpt infusion services Pain control Likely home 07/10/20 with HH/infusion services
[2020-07-09] MEDS: Enoxaparin Sodium 40 MG/0.4 ML SYRINGE SC SCH (21:39)
[2020-07-10] MEDS: Cefepime 2 GM in Sodium Chloride 0.9% 100 ML IVPB SCH ×2 (05:37→20:04)
[2020-07-10] MEDS: Saccharomyces boulardii 250 MG CAP PO SCH (09:16)
[2020-07-10] MEDS: Senokot S 8.6-50 MG TAB PO SCH ×2 (09:16→20:05)
[2020-07-10] MEDS: FLUoxetine HCl 20 MG CAP PO SCH (09:16)
[2020-07-10] MEDS: Finasteride 5 MG TAB PO SCH (09:17)
[2020-07-10] MEDS: metroNIDAZOLE 500 MG TAB PO SCH ×3 (09:17→20:04)
[2020-07-10] MEDS: Polyethylene Glycol 3350 17 GM Packet PO SCH (09:17)
[2020-07-10] MEDS: Fluticasone Propionate Nasal Spray 16 gm Bottle NASAL SCH ×2 (09:17→20:04)
--- NOTE | 2020-07-10 09:21 | PQF ---
CLINICAL DOCUMENTATION CLARIFICATION FORM: Dear Dr. Mishra Date: 07/10/2020 Please exercise your independent, professional judgment in responding to the clarification form. Clinical indicators are provided on the bottom of this form for your review. Please check appropriate box(s): PRESSURE ULCER OF SACRAL REGION Please specify stage: [ ] Stage III (3) [ x ] Stage IV (4) [ ] Other diagnosis [ ] Unable to determine In addition, please specify: Present on Admission (POA): [ x ] Yes [ ] No [ ] Unable to determine For continuity of documentation, please document condition throughout progress notes and discharge summary. Thank You. CLINICAL INDICATORS - SIGNS / SYMPTOMS / LABS / RESULTS AND LOCATION IN EMR *Adult Assessment Section 1 of 2 06/28 at 2100 (EMR): * Ulcer Assessment * Sacrum * Unstageable *WC: Assessment/Reassessment 06/28 (EMR): * Wound Assessment * Sacral * Wound Type Pressure Ulcer * Stage III * Wound/Burn Stage Full Thickness * Wound Bed Red (Granulation) * Description Black (Eschar) *Operative Notes 06/28 (Ayad): Findings: 6 x 8 x 4 cm necrotic decubitus to the periosteum *PN 07/03 (Ulysses): * Sacral decubitis ulcer * Pressure injury stage: stage 4 *WC: Assessment/Reassessment 07/05 (EMR): * Wound Assessment * Sacral * Wound Type Pressure Ulcer * Stage III * Wound/Burn Stage Full Thickness * Wound Bed Red (Granulation) * Description [place] RISK FACTORS / RESULTS AND LOCATION IN EMR *H&P 06/27 (Wilbur-Young): History of CVA and complication right knee surgery in the past that has left him debilitated and unable to walk, bedridden. TREATMENTS / RESULTS AND LOCATION IN EMR *Orders (EMR): Consult: WoundCare Eval/Treat Routine 06/27, 06/28 *Surgeon Consultation 06/28 (Ayad) *Operative Notes 06/28 (Ayad): Procedure performed: Sharp debridement of sacral decubitus *WC: Assessment/Reassessment 06/29 (EMR): 06/29/20 Wound vac placed per orders *PN 07/06 (Tad): Plan for IV Cefepime/Flagyl up to 6 weeks at home. Thank you, Desi CDS/Pre K Teacher Signature: Desi Narayan, RN, CDS Phone #: [phone] [email or web address] This is a permanent part of the Medical Record [facility]
--- NOTE | 2020-07-10 09:42 | PQF ---
CLINICAL DOCUMENTATION CLARIFICATION FORM: Dear Dr. Mishra Date: 07/10/2020 Please exercise your independent, professional judgment in responding to the clarification form. Clinical indicators are provided on the bottom of this form for your review. SEPSIS Present on Admission (POA): [ x ] Yes [ ] No [ ] Unable to determine For continuity of documentation, please document condition throughout progress notes and discharge summary. Thank You. CLINICAL INDICATORS - SIGNS / SYMPTOMS / LABS / RESULTS AND LOCATION IN EMR *ED 06/27: * Vital Signs: Pulse 58 - 104 Temp (max): 99.2 (oral) RR 16-18 BP 119/58 - 146/97 * Reports foul-smelling discharge. * Patients daughter is unaware of any fevers since the sacral wound has started worsening. *LAB (EMR): WBC Neutrophils % Lactic Acid 06/27 8.5 83.1 1.9 06/29 6.7 84.1 06/30 5.2 63.0 07/01 5.0 58.8 07/02 5.6 63.7 07/09 8.7 86.7 *H&P 06/27 (Wilbur-Young): * Infected/nonhealing sacral decubitis wound/ulcer. * Septic workup including wound cultures. *PN 06/30 (Jeff): * No signs of sepsis * Wound culture showing multibacterial growth. *PN 07/06 (Tad): Sepsis due to skin infection *PN 07/07 (Tad): * Sepsis due to skin infection Plan: Resolving * Stable currently RISK FACTORS / RESULTS AND LOCATION IN EMR *ED 06/27: Breakdown on the right posterior heel and medial heel . *H&P 06/27 (Candace): * Debilitated and unable to walk, bedridden. * Infected/nonhealing sacral decubitis wound/ulcer. TREATMENTS / RESULTS AND LOCATION IN EMR *ED 06/27: Piperacillin-tazobactam IV, Clindamycin IV *H&P 06/27 (Wilbur-Young): Septic workup including wound cultures. IV antibiotics. *MAR (EMR): NS 75 ml/h IV 06/28-06/30 *Microbiology (EMR): Blood Culture x2 (06/27); Source Sacral Ulcer Bacterial Culture, Anaerobic Culture (06/28); Source Sacral Bacterial Culture (06/28) *LAB (EMR): Lactic Acid 06/27, CBC 06/27, 06/29, 06/30, 07/01, 07/02, 07/09 *Orders (EMR): Consult: WoundCare Eval/Treat Routine 06/27, 06/28 *Surgeon Consultation 06/28 (Ayad) *Operative Notes 06/28 (Ayad): Procedure performed: Sharp debridement of sacral decubitus *WC: Assessment/Reassessment 06/29 (EMR): 06/29/20 Wound vac placed per orders *Infectious Disease Consultation 07/01 (Tania) *PN 07/06 (Tad): Plan for IV Cefepime/Flagyl up to 6 weeks at home. Infectious Disease Consultation (Tania) Thank you, Desi CDS/Ground Nuclear Weapons Assembly Officer Signature: Desi Narayan RN, CDS Phone #: [phone] [email or web address] This is a permanent part of the Medical Record [facility]
--- NOTE | 2020-07-10 11:14 | PDOC.HOSPP ---
- Subjective Encounter Date: 07/10/20 Encounter Time: 11:05 Subjective: f/u for sacral decubitus ulcer s/p I&D 06/28/20 receiving IV Cefepime/Flagyl/Wounc vac and local care. Awaiting coordination for services. - Objective Vital Signs & Weight: Vital Signs (12 hours) Temp Pulse Resp BP Pulse Ox 07/10/20 07:14 97.6 F 78 16 124/85 96 07/10/20 03:59 97.8 F 77 16 125/80 97 07/09/20 23:55 97.7 F 88 18 116/82 94 L Weight Admit Weight 220 lb 2 oz Weight 220 lb 2 oz I&O: 07/09/20 07/10/20 07/11/20 06:59 06:59 06:59 Intake Total 3476 3485 Output Total 1325 3975 Balance 2151 -490 Result Diagrams: 07/09/20 07:42 07/09/20 07:42 Additional Labs: Microbiology 06/28/20 15:33 Sacral - Ulcer Bacterial Culture - Final 06/28/20 15:33 Sacral - Ulcer Anaerobic Culture - Final Morganella morganii ssp paras Proteus mirabilis Anaerobic Gram Negative Cocci Anaerobic Gram Positive Lexx Anaerobic Gram Negative Lexx Anaerobic Gram Negative Lexx#2 06/28/20 06:00 Sacral Bacterial Culture - Final Presumptive Escherichia coli Gram Negative Lexx#2 Gram Negative Lexx#3 Presumptive Proteus mirabilis 06/27/20 17:55 Venous blood - Left Arm Blood Culture - Final NO GROWTH IN 5 DAYS 06/27/20 17:54 Venous blood - Left Arm Blood Culture - Final NO GROWTH IN 5 DAYS Hospitalist ROS - Medication Medications: Active Medications Generic Name Dose Route Start Last Admin Trade Name Freq PRN Reason Stop Dose Admin Enoxaparin Sodium 40 mg 06/29/20 21:00 07/09/20 21:39 Enoxaparin Sodium 40 Mg/0.4 Ml Syringe SC 40 mg 2100 SUZANNA Administration Finasteride 5 mg 07/02/20 09:00 07/10/20 09:17 Finasteride 5 Mg Tab PO 5 mg DAILY SUZANNA Administration Fluoxetine HCl 20 mg 07/02/20 09:00 07/10/20 09:16 Fluoxetine Hcl 20 Mg Cap PO 20 mg DAILY SUZANNA Administration Fluticasone Propionate 0 gm 07/01/20 21:00 07/10/20 09:17 Fluticasone Propionate Nasal [place] 16 Gm Bottle NASAL Not Given BID SUZANNA Cefepime HCl 2 gm/ Sodium 100 mls @ 200 mls/hr 07/04/20 17:00 07/10/20 05:37 Chloride IVPB 100 mls 0500,1700 SUZANNA Administration Lactulose 20 gm 07/02/20 08:47 07/08/20 17:17 Lactulose 20 Gm/30 Ml Udcup PO 20 gm DAILYPRN PRN Administration Constipation Metronidazole 500 mg 07/01/20 21:00 07/10/20 09:17 Metronidazole 500 Mg Tab PO 500 mg TID SUZANNA Administration Pantoprazole Sodium 40 mg 07/02/20 09:00 07/10/20 09:16 Pantoprazole 40 Mg Tab PO 40 mg DAILY SUZANNA Administration Polyethylene Glycol 17 gm 07/02/20 09:00 07/10/20 09:17 Polyethylene Glycol 3350 17 Gm Packet PO 17 gm DAILY SUZANNA Administration Saccharomyces Boulardii 250 mg 07/02/20 09:00 07/10/20 09:16 Saccharomyces Boulardii 250 Mg Cap PO 250 mg DAILY SUZANNA Administration Senna/Docusate Sodium 1 tab 07/01/20 21:00 07/10/20 09:16 Senokot S 8.6-50 Mg Tab PO 1 tab BID SUZANNA Administration Sodium Chloride 10 ml 06/28/20 09:00 07/09/20 21:40 Flush - Normal Saline 10 Ml Syringe IVF 10 ml Q12HR SUZANNA Administration Sodium Chloride 10 ml 06/27/20 22:30 07/01/20 21:24 Flush - Normal Saline 10 Ml Syringe IVF 10 ml PRN PRN Administration Saline Flush - Exam General Appearance: NAD General - other findings: somnolent, non-verbal Eye: PERRL, anicteric sclera ENT: normocephalic atraumatic, no oropharyngeal lesions Neck: supple, symmetric, no JVD, no thyromegaly, no lymphadenopathy Heart: RRR, no gallops, no rubs, normal peripheral pulses Heart - other findings: S1, S2 Respiratory: no tachypnea Respiratory - other findings: few basilar rhonchi, diminished in bases Gastrointestinal: soft, non-tender, non-distended, normal bowel sounds, no palpable masses Extremities: no cyanosis, no clubbing, no edema Skin: normal turgor Neurological: no new deficit Neurological - other findings: non-verbal, bed bound status Musculoskeletal: generalized weakness Psychiatric: somnolent, lethargic Hosp A/P (1) Sacral decubitus ulcer Code(s): L89.159 - PRESSURE ULCER OF SACRAL REGION, UNSPECIFIED STAGE Status: Chronic Qualifiers: Pressure injury stage: stage 4 Qualified Code(s): L89.154 - Pressure ulcer of sacral region, stage 4 Plan: s/p I&D 06/28/20, continue Cefepime/Flagyl/Wound vac/local care, awaiting coordination of outpt HH vs swing bed options (2) Sepsis due to skin infection Code(s): L03.90 - CELLULITIS, UNSPECIFIED; A41.9 - SEPSIS, UNSPECIFIED ORGANISM Status: Acute Plan: Resolving, see above #1 (3) Aphasia as late effect of cerebrovascular accident Code(s): I69.320 - APHASIA FOLLOWING CEREBRAL INFARCTION Status: Acute (4) HTN (hypertension) Code(s): I10 - ESSENTIAL (PRIMARY) HYPERTENSION Status: Chronic Qualifiers: Hypertension type: essential hypertension Qualified Code(s): I10 - Essential (primary) hypertension - Plan continue antibiotics, social work faculty member, speech therapy, DVT proph w/SCDs Stable currently continue Cefepime/Flagyl for 6 weeks total therapy WCT for local care, wound vac CM for assistance coordinating outpt infusion services vs swing bed options Pain control PRN
[2020-07-10] MEDS: Enoxaparin Sodium 40 MG/0.4 ML SYRINGE SC SCH (20:04)
[2020-07-11] MEDS: Cefepime 2 GM in Sodium Chloride 0.9% 100 ML IVPB SCH (05:28)
[2020-07-11] MEDS ORDERED: Cefepime 2 GM in Sodium Chloride 0.9% 100 ML IVPB SCH ×2 (08:00→16:00)
[2020-07-11] MEDS: Finasteride 5 MG TAB PO SCH (08:19)
[2020-07-11] MEDS: FLUoxetine HCl 20 MG CAP PO SCH (08:19)
[2020-07-11] MEDS: metroNIDAZOLE 500 MG TAB PO SCH ×2 (08:19→15:46)
[2020-07-11] MEDS: Saccharomyces boulardii 250 MG CAP PO SCH (08:19)
[2020-07-11] MEDS: Senokot S 8.6-50 MG TAB PO SCH (08:20)
[2020-07-11] MEDS: Polyethylene Glycol 3350 17 GM Packet PO SCH (08:20)
[2020-07-11] MEDS: Fluticasone Propionate Nasal Spray 16 gm Bottle NASAL SCH (08:20)
[2020-07-11 16:38] VITALS: BP 134/84; TEMP 98.8
--- NOTE | 2020-07-12 01:28 | DIS ---
DATE OF ADMISSION: 06/27/2020 DATE OF DISCHARGE: 07/11/2020 DISCHARGE DIAGNOSES: 1. Stage IV sacral decubitus ulcer, status post incision and drainage, 06/28/2020. 2. Sepsis secondarily to skin infection, resolved. 3. Cerebrovascular accident with aphasia and hemiplegia. 4. Hypertension, stable. CONSULTATIONS: 1. Dr. Ash Marin with Infectious Disease Service. 2. Dr. Kalin Lion with General Surgery Service. PERTINENT LABORATORY AND X-RAY FINDINGS: Lactic acid level 1.9. CBC showed a white blood cell count ranging between 5.0 to 8.7, hemoglobin ranged between 10.9 to 14.2. COVID-19 PCR not detected, 06/27/2020. Blood cultures x2 dated 06/27/2020 showed no growth at 5 days. Sacral wound culture dated 06/28/2020, showed multiple gram-negative species including E coli and presumptive Proteus mirabilis. Wound culture dated 06/28/2020, showed Morganella and Proteus mirabilis species. CT of the abdomen and pelvis dated 06/27/2020 showed sacral decubitus ulceration with underlying abscess in the soft tissue region and posterior to the sacrococcygeal junction and coccyx. High-grade lumbar spondylosis. Two views of the right heel dated 07/03/2020, showed calcaneal spur without bony destruction or evidence of osteomyelitis. HOSPITAL COURSE: The patient was initially admitted after presenting with large sacral decubitus ulceration in the context of previous CVA with bed-bound status and nonambulatory. The patient was noted with stage IV sacral decubitus ulceration with associated sepsis due to the skin infection with CT imaging showing evidence of abscess in the soft tissues of the ulcer. The patient was given IV antibiotic therapy and taken for sharp debridement of the sacral decubitus ulcer on 06/28/2020. Wound cultures did show polymicrobial species including Morganella and Proteus species, at which point, therapy was directed with IV cefepime in addition to Flagyl. Consultation was obtained by the Infectious Disease Service with recommendations for approximate 6-week IV antibiotic therapy with local wound care and wound VAC. The patient overall remained clinically stable; however, hospital course was prolonged due to coordination of care as well as outpatient home health services and Infusion Services. The patient underwent a PICC line placement to his left upper extremity on 07/04/2020 without complication. The patient has been approved for home infusion services and wound care and will transition home on 07/11/2020. I have examined the patient at the time of discharge and discussed followup instructions. The patient verbalizes understanding and agreement, ready for discharge on 07/11/2020. DISCHARGE MEDICATIONS: 1. Cefepime 2 g IV b.i.d. until 08/10/2020. 2. Metronidazole 500 mg p.o. t.i.d. until 08/10/2020. 3. Florastor 250 mg p.o. daily. 4. Omeprazole 40 mg p.o. daily. 5. Fluoxetine 20 mg p.o. daily. 6. Finasteride 5 mg p.o. daily. 7. Flonase 1 spray in each nares b.i.d. FOLLOWUP: The patient may follow up with his primary care provider, Rosie Giraldo. The patient will follow up with outpatient Wound Care Services. SPECIAL INSTRUCTIONS: The patient will receive [facility] in addition to [facility] after discharge. CONDITION ON DISCHARGE: Fair. ACTIVITY: Ad-kirsten. DIET: Regular. CODE STATUS: Full. DISPOSITION: To home with Home Health Services 07/11/2020. TIME SPENT: Total time preparing and coordinating discharge, 38 minutes. Job ID: [id number]
--- NOTE | 2020-07-13 19:17 | PQF ---
Dear : Kalin Lion Date 07/13/2020 Please exercise your independent, professional judgment in responding to the clarification form. Clinical indicators are provided on the bottom of this form for your review Can you please further clarify the type and depth of procedure being performed to the patient? Please check appropriate box(es): [ ] Excisional Debridement: [ ] Excised [ ] Cut away [ ] Other: Depth / layer: (deepest layer of debridement): [ ] Skin [ ] Subcutaneous [ ] Fascia [ ] Muscle [ ] Tendon [ ] Bone_ [ ] Non-excisional Debridement: (Removal by flushing, brushing, chemical, or washing) Depth / layer: (deepest layer of debridement): [ ] Skin [ ] Subcutaneous [ ] Fascia [ ] Muscle [ ] Tendon [ ] Bone [ ] Other procedure, please specify [ ] Unable to determine Physician Signature: Date/Time: For continuity of documentation, please document condition throughout progress notes and discharge summary. Thank You. To be completed by CDI/Coding staff for physician review: Present Clinical Indicators - Signs / Symptoms / Labs Results and Location in Medical Record [ x ] Sharp debridement of sacral decubitus OP report pg.1 06/28 [ x ] Using 10 blade, 15 blade bone rongeurs, the necrotic tissue was sharply debrided OP report pg.1 06/28 [ x ] The necrotic tissue was completely excised down to the bleeding tissue OP report pg.1 06/28 [ x ] Bleeding tissue was then controlled using electrocautery and the wound was thoroughly irrigated with saline OP report pg.1 06/28 [ x ] Stage IV sacral ulcer s/p incision and drainage DS pg.1 Present Risk Factors Results and Location in Medical Record [ x ] Bedridden H and P pg.1 [ x ] Hx of CVA H and P pg.1 [ x ] Infected non healing sacral ulcer H and P pg.1 [ x ] HTN H and P pg.1 [ x ] Gout H and P pg.1 [ x ] Septic sacral decubitus OP report pg.1 06/28 [ x ] Sepsis DS pg.1 [ x ] Smoker ED Notes 06/27 Present Treatments Results and Location in Medical Record [ x ] Sharp Debridement OP report pg.1 06/28 [ x ] IV Fluids MAR [ x ] Infectious Consult Dr. Marin 07/01 [ x ] Surgery Consult Dr. Lion 07/08 [ x ] Clindamycin 900mg IV OCT 19 [ x ] Zosyn 4.5gm IV OCT 19 [ x ] Cefepime 2gm IV OCT 19 CDS/Child Study Team Director Signature: Serafin Koehler Phone #: ext [phone] Date 07/13/2020 This is a permanent part of the Medical Record [facility]
== END 2020-07-11 18:12 | disposition home health service (06) | DRG 853 ==
LOC: ERS 15:37 → SURG B 22:14
PROVIDERS: ADMIT Internal Medicine; ATTEND Internal Medicine
PROC: 0T9B70Z Drainage of Bladder with Drainage Device, Via Natural or Artificial Opening (ICD-10-PCS; principal; 2020-06-28)
PROC: 0JB70ZZ Excision of Back Subcutaneous Tissue and Fascia, Open Approach (ICD-10-PCS; 2020-06-28)
PROC: 02HV33Z Insertion of Infusion Device into Superior Vena Cava, Percutaneous Approach (ICD-10-PCS; 2020-07-04)
PROC: B548ZZA Ultrasonography of Superior Vena Cava, Guidance (ICD-10-PCS; 2020-07-04)
DX: A41.9 Sepsis, unspecified organism (principal); L89.154 Pressure ulcer of sacral region, stage 4; I96 Gangrene, not elsewhere classified; I69.359 Hemiplegia and hemiparesis following cerebral infarction affecting unspecified side; Z20.828 Contact with and (suspected) exposure to other viral communicable diseases; I10 Essential (primary) hypertension; M06.9 Rheumatoid arthritis, unspecified; Z96.651 Presence of right artificial knee joint; L89.610 Pressure ulcer of right heel, unstageable; F32.9 Major depressive disorder, single episode, unspecified; K59.00 Constipation, unspecified; I69.320 Aphasia following cerebral infarction; Z79.899 Other long term (current) drug therapy; Z74.01 Bed confinement status; Z87.891 Personal history of nicotine dependence
CPT/HCPCS: 36415; 36569; 74177; 80048; 80053; 83605; 85025; 87040; 87070; 87077; 87186; 87205; 87635; 96365; 96375; C1751; J0692; J0696; J1100; J1644; J1650; J2270; J2543; J2704; J3010; J3490; Q9967; U0003

== ENCOUNTER 2020-07-14 15:20 | Emergency (ER) | payer MEDICARE ==
--- NOTE | 2020-07-14 18:33 | ULT ---
Exam: Limited soft tissue ultrasound of the right upper extremity. Evaluate for possible puncture of 2 adjacent veins while attempting to get venous access. HISTORY: Evaluate for course of PICC line FINDINGS: Targeted images of the right upper extremity are performed. Real-time images demonstrate a PICC line entering the right upper extremity in the region of the brachial vein. The PICC line appears to course along a tributary vein emanating from the brachial vein with a more superficial loc ation. There does not appear to be puncture of more than 1 vein to obtain vascular access. IMPRESSION: Single vein has been punctured. Vein is likely a tributary emanating from the brachial ve in given superficial location. Refer to separate PICC line report. Transcribed Date/Time: 07/14/2020 7:41 PM
--- NOTE | 2020-07-14 19:28 | SPC ---
Exam: Rightupper extremity ultrasound guided PICC line HISTORY: TPN, IV antibiotics Exposure:0.4 minutes, 3391 mg/sq cm FINDINGS: Lumen: Singlelumen Trim length: 41 cm cm Distal tip:Right atrium Catheter flushes and aspirates without difficulty TECHNIQUE: Consent obtained to perform a right upper extremity PICC line with ultrasound guidance. R ightarm was prepped and draped in a sterile fashion. 1% lidocaine, buffered with sodium bicarbonate was used for local anesthesia. Under ultrasound guidance, micropuncture needle was used to cannulate thebrachialvein. A 0.018 guidewire was advanced through the needle to level of the superior vena cava. Under fluoroscopy, wire was advanced into the right atrium. Single-lumen catheter was advanced over the wire. Single lumen flushes and aspirates without difficulty. Patient tolerated the procedure well. No immediate or postprocedure complications Limited venogram was performed via the PICC line. Contrast opacifies the right atrium. Contrast flows into the main right pulmonary artery and opacifies the central pulmonary arterial system. A total of 6 cc of contrast was administered. IMPRESSION: Successfulrightupper surgery PICC line placement with ultrasound guidance
== END 2020-07-14 19:12 | disposition home or self-care (01) ==
LOC: ERS 15:20
DX: Z46.6 Encounter for fitting and adjustment of urinary device (principal); I10 Essential (primary) hypertension; Z86.73 Personal history of transient ischemic attack (TIA), and cerebral infarction without residual deficits; Z87.891 Personal history of nicotine dependence; Z79.899 Other long term (current) drug therapy
CPT/HCPCS: 36569; C1751

== ENCOUNTER 2020-09-30 16:52 | Inpatient (IN) | payer MEDICARE ==
[2020-09-30 17:37] LABS: #Eosinphils 0.1 thou/uL (0.0-0.7); #Monocytes 0.5 thou/uL (0.11-0.59); #Neutrophils 9.4 thou/uL (1.40-6.50); %Basophils 0.3 % (0.0-1.0); %Eosinophils 1.1 % (0.0-10.0); %Lymphocytes 9.1 % (21.0-51.0); %Monocytes 4.2 % (0.0-10.0); %Neutrophils 85.4 % (42.0-75.0); Hemoglobin 13.8 g/dL (14.0-18.0); Mean Corpuscular Hemoglobin 30.7 pg (27.0-31.0); Mean Corpuscular Volume 93.1 fL (78.0-98.0); Mean Platelet Volume 6.7 fL (7.4-10.4); Platelet Count 434 thou/uL (130-400); Red Blood Cell (RBC) Count 4.48 mill/uL (4.70-6.10)
[2020-09-30 18:00] LABS: ALT (SGPT) 17 U/L (8-55); AST (SGOT) 26 U/L (5-34); Alkaline Phosphatase 96 U/L (40-110); Anion Gap 18 mmol/L (10-20); BUN (Urea Nitrogen) 29 mg/dL (8.4-25.7); Bilirubin, Total 0.7 mg/dL (0.2-1.2); Calc. Creatinine Clearance 0 mL/min (70-130); Calcium 9.6 mg/dL (7.8-10.44); Carbon Dioxide 19 mmol/L (22-29); Chloride 108 mmol/L (98-107); Globulin 4.4 g/dL (2.4-3.5); Glucose 143 mg/dL (70-105); Potassium 3.7 mmol/L (3.5-5.1); Protein, Total 8.4 g/dL (6.0-8.3); Sodium 141 mmol/L (136-145)
--- NOTE | 2020-09-30 20:24 | RAD ---
Portable frontal chest radiograph: 09/30/2020 COMPARISON: None available HISTORY: Altered mental status FINDINGS: Heart and mediastinal contours appear grossly unremarkable. There is degenerative change in volving bilateral shoulders. There is no pneumothorax or pleural fluid and no focal consolidation or alveolar edema. There is a rounded area of soft tissue density in the supraclavicular region on th e right measuring 2.2 cm, of uncertain etiology/significance. IMPRESSION: Nonspecific 2.2 cm rounded density in the supraclavicular region on the right. No radiogr aphic evidence of acute cardiopulmonary disease.
[2020-09-30] MEDS ORDERED: Vancomycin 1 GM/200 ML BAG ONE (20:29)
[2020-09-30] MEDS ORDERED: cefTRIAXone\\ROCEPHIN 2 GM VIAL ONE (20:29)
[2020-09-30 20:42] LABS: Bacteria/HPF 4+ HPF (None Seen); Bilirubin Negative (Negative); Blood, Urine 1+ (Negative); Clarity Extra Turbid (Clear); Glucose, Urine (Dipstick) Normal (Negative); Ketone, Urine Trace mg/dL (Negative); Leukocyte 500 Leu/uL (Negative); Nitrite Negative (Negative); Protein, Urine (Dipstick) 300 mg/dL (Neg-Trace); RBC/HPF Greater than 50 HPF (0-3); Specific Gravity, Urine 1.023 (1.002-1.036); Urobilinogen Normal mg/dL (Less than 2); WBC/HPF Greater than 50 HPF (0-3)
[2020-10-01] MEDS ORDERED: Ondansetron PF 4 MG/2 ML Vial IVP PRN (00:07)
[2020-10-01] MEDS ORDERED: hydrALAZINE 20 MG/ML VIAL SLOW IVP PRN (00:10)
--- NOTE | 2020-10-01 00:16 | PDOC.HHP ---
Hospitalist HPI Worsening altered mental status History of Present Illness: 59-year-old male with past medical history of dementia] presumed vascular from previous CVA versus Alzheimer's, scheduled to see neurology for further work-up next week], sacral decubitus recently placed wound VAC 1 month ago, indwelling Navarro since the last 1 month for healing of sacral decubitus, CVA impaired mobility admitted today after being brought in by daughter for increasing lethargy and change in mental status. At baseline patient is reportedly intermittently vocalize but has been gradually more drowsy since earlier today. He has had his wound VAC follow-up due to the power blackout since the last 3 days, he has also appeared to have pulled out his Navarro catheter since the last 3 days also. On arrival in the ED a new Navarro was placed with drainage of cloudy urine. Urine analysis shows evidence of possible UTI. Patient was reportedly tachypneic. Patient head CT was unremarkable. Chest x-ray was also unremarkable with old right supraclavicular opacity. He has been admitted for UTI with sepsis. Allergies/Adverse Reactions: Allergy/AdvReac Type Severity Reaction Status Date / Time No Known Drug Allergies Allergy Verified 06/28/20 00:50 Home Medications: Medication Instructions Recorded Confirmed Type FLUoxetine HCl [Fluoxetine HCl] 20 mg PO DAILY 06/28/20 06/28/20 History Finasteride 5 mg PO DAILY 06/28/20 06/28/20 History Fluticasone Propionate [Flonase 1 spray EA NARE BID 06/28/20 06/28/20 History Nasal [place]] Omeprazole 40 mg PO DAILY 06/28/20 06/28/20 History Cefepime [Maxipime] 2 gm IVPB 0800,2000 vial 07/11/20 Rx Saccharomyces boulardii [Florastor] 250 mg PO DAILY #30 cap 07/11/20 Rx metroNIDAZOLE [Flagyl] 500 mg PO TID #90 tab 07/11/20 Rx Past History: PMHx: PSHx: FHx: Social: Hospitalist HPI ROS ROS unobtainable: due to mental status Hospitalist Exam General Appearance: NAD, awake alert General - other findings: Nonverbal but opening eyes Eye: PERRL, anicteric sclera ENT: normocephalic atraumatic, dry oral mucosa Neck: supple, symmetric Heart: RRR, no murmur Respiratory: CTAB, no wheezes Gastrointestinal: soft, non-tender, no palpable masses Extremities: no cyanosis, no clubbing Skin - other findings: Stage IIb sacral decubitus ulcergranulation tissue aroun d area, healing Neurological: speech deficit Psychiatric: somnolent Hospitalist Results Result Diagrams: 09/30/20 17:20 09/30/20 17:20 Lab results: Laboratory Last Values WBC 11.0 thou/uL (4.8-10.8) H 09/30/20 17:20 RBC 4.48 mill/uL (4.70-6.10) L 09/30/20 17:20 Hgb 13.8 g/dL (14.0-18.0) L 09/30/20 17:20 Hct 41.7 % (42.0-52.0) L 09/30/20 17:20 MCV 93.1 fL (78.0-98.0) 09/30/20 17:20 MCH 30.7 pg (27.0-31.0) 09/30/20 17:20 MCHC 33.0 g/dL (32.0-36.0) 09/30/20 17:20 RDW 13.0 % (11.5-14.5) 09/30/20 17:20 Plt Count 434 thou/uL (130-400) H 09/30/20 17:20 MPV 6.7 fL (7.4-10.4) L 09/30/20 17:20 Neutrophils % 85.4 % (42.0-75.0) H 09/30/20 17:20 Lymphocytes % 9.1 % (21.0-51.0) L 09/30/20 17:20 Monocytes % 4.2 % (0.0-10.0) 09/30/20 17:20 Eosinophils % 1.1 % (0.0-10.0) 09/30/20 17:20 Basophils % 0.3 % (0.0-1.0) 09/30/20 17:20 Neutrophils # 9.4 thou/uL (1.40-6.50) H 09/30/20 17:20 Lymphocytes # 1.0 thou/uL (1.20-3.40) L 09/30/20 17:20 Monocytes # 0.5 thou/uL (0.11-0.59) 09/30/20 17:20 Eosinophils # 0.1 thou/uL (0.0-0.7) 09/30/20 17:20 Basophils # 0.0 thou/uL (0.0-0.2) 09/30/20 17:20 Sodium 141 mmol/L (136-145) 09/30/20 17:20 Potassium 3.7 mmol/L (3.5-5.1) 09/30/20 17:20 Chloride 108 mmol/L (98-107) H 09/30/20 17:20 Carbon Dioxide 19 mmol/L (22-29) L 09/30/20 17:20 Anion Gap 18 mmol/L (10-20) 09/30/20 17:20 BUN 29 mg/dL (8.4-25.7) H 09/30/20 17:20 Creatinine 0.78 mg/dL (0.7-1.3) 09/30/20 17:20 Estimated GFR (MDRD) Greater than 90 09/30/20 17:20 Glucose 143 mg/dL (70-105) H 09/30/20 17:20 Lactic Acid 1.8 mmol/L (0.5-2.2) 09/30/20 17:20 Calcium 9.6 mg/dL (7.8-10.44) 09/30/20 17:20 Total Bilirubin 0.7 mg/dL (0.2-1.2) 09/30/20 17:20 AST 26 U/L (5-34) 09/30/20 17:20 ALT 17 U/L (8-55) 09/30/20 17:20 Alkaline Phosphatase 96 U/L (40-110) 09/30/20 17:20 Serum Total Protein 8.4 g/dL (6.0-8.3) H 09/30/20 17:20 Albumin 4.0 g/dL (3.5-5.0) 09/30/20 17:20 Globulin 4.4 g/dL (2.4-3.5) H 09/30/20 17:20 Albumin/Globulin Ratio 0.9 g/dL (1.2-2.2) L 09/30/20 17:20 Urine Color Dark Yellow (Yellow) 09/30/20 20:10 Urine Clarity Extra Turbid (Clear) A 09/30/20 20:10 Urine pH 8.0 (5.0-9.0) 09/30/20 20:10 Ur Specific [place] 1.023 (1.002-1.036) 09/30/20 20:10 Urine Protein 300 mg/dL (Neg-Trace) A 09/30/20 20:10 Urine Glucose (UA) Normal mg/dL (Negative) 09/30/20 20: Urine Ketones Trace mg/dL (Negative) A 09/30/20 20: Urine Blood 1+ (Negative) A 09/30/20 20: Urine Nitrite Negative (Negative) 09/30/20: Urine Bilirubin Negative (Negative) 09/30/20: Urine Urobilinogen Normal mg/dL (Less than 2) 09/30/20 20: Ur Leukocyte Esterase 500 Manisha/uL (Negative) A 09/30/20 20:10 Urine RBC Greater than 50 HPF (0-3) A 09/30/20 20:10 Urine WBC Greater than 50 HPF (0-3) A 09/30/20 20:10 Ur Squamous Epith Cells 7-10 HPF (0-3) A 09/30/20 20:10 Ur Renal Epithelial Cell 7-10 HPF (None Seen) A 09/30/20 20:10 Urine Bacteria 4+ HPF (None Seen) A 09/30/20 20:10 Hospitalist H&P A/P (1) UTI (urinary tract infection) Status: Acute (2) Aphasia as late effect of cerebrovascular accident Code(s): I69.320 - APHASIA FOLLOWING CEREBRAL INFARCTION Status: Acute (3) Bedbound Code(s): Z74.01 - BED CONFINEMENT STATUS Status: Chronic (4) HTN (hypertension) Code(s): I10 - ESSENTIAL (PRIMARY) HYPERTENSION Status: Chronic Qualifiers: Hypertension type: essential hypertension Qualified Code(s): I10 - Essential (primary) hypertension (5) Sacral decubitus ulcer Code(s): L89.159 - PRESSURE ULCER OF SACRAL REGION, UNSPECIFIED STAGE Status: Chronic Qualifiers: Pressure injury stage: stage 4 Qualified Code(s): L89.154 - Pressure ulcer of sacral region, stage 4 Plan: UTIdue to indwelling Navarro Start new Navarro placed now Follow urine culture Start empirical Rocephin Gentle IV fluid as tolerated Adjust antibiotics based on urine culture and sensitivity Sacral decubitus that sacral wound appears to be healing We will consult wound care to determine if need for continuation of wound VAC Continue Navarro until the sacral wound heals At sink to regimen Hypertensioncontrolled DVT prophylaxissubcutaneous heparin Advance directivediscussed with daughter, full code advised
[2020-10-01 01:19] VITALS: BMI 29.1
[2020-10-01 06:42] LABS: Hemoglobin 11.4 g/dL (14.0-18.0); Mean Corpuscular HGB CONC 31.7 g/dL (32.0-36.0); Mean Corpuscular Hemoglobin 29.5 pg (27.0-31.0); Mean Corpuscular Volume 93.1 fL (78.0-98.0); Mean Platelet Volume 6.8 fL (7.4-10.4); Platelet Count 393 thou/uL (130-400); RBC Distribution Width 12.8 % (11.5-14.5); Red Blood Cell (RBC) Count 3.88 mill/uL (4.70-6.10); White Blood Cell (WBC) Count 8.8 thou/uL (4.8-10.8)
[2020-10-01 06:58] LABS: ALT (SGPT) 17 U/L (8-55); AST (SGOT) 18 U/L (5-34); Albumin 3.4 g/dL (3.5-5.0); Alkaline Phosphatase 81 U/L (40-110); Anion Gap 15 mmol/L (10-20); BUN (Urea Nitrogen) 26 mg/dL (8.4-25.7); Bilirubin, Total 0.6 mg/dL (0.2-1.2); Calc. Creatinine Clearance 173 mL/min (70-130); Calcium 8.8 mg/dL (7.8-10.44); Carbon Dioxide 18 mmol/L (22-29); Chloride 112 mmol/L (98-107); Globulin 3.7 g/dL (2.4-3.5); Glucose 112 mg/dL (70-105); Potassium 3.1 mmol/L (3.5-5.1); Protein, Total 7.1 g/dL (6.0-8.3); Sodium 142 mmol/L (136-145)
[2020-10-01 07:00] LABS: Band 1 % (5-11); Eosinophils 2 % (0-10); Hypochromia SLIGHT = 6-15 cells (100X) (0-5/hpf); Lymphocytes 13 % (21-51); MDiff Complete? YES; Monocytes 6 % (0-10); Neutrophil 78 % (42-75); Platelet Morphology Comment Appears Adequate
[2020-10-01] MEDS: Finasteride 5 MG TAB PO SCH (08:17)
[2020-10-01] MEDS: Enoxaparin Sodium 40 MG/0.4 ML SYRINGE SC SCH (08:17)
[2020-10-01] MEDS: FLUoxetine HCl 20 MG CAP PO SCH (08:17)
[2020-10-01] MEDS: Famotidine 20 MG TAB PO SCH ×3 (08:17→22:06)
[2020-10-01] MEDS: Zinc Sulfate 220 MG CAP PO SCH (08:17)
[2020-10-01] MEDS ORDERED: FLU VACC QS2020-21(6MOS UP)/PF 60 MCG/0.5 ML SYRINGE IM ONE (09:00)
[2020-10-01 09:29] LABS: SARS-CoV-2 PCR by NAA Not Detected (NotDetected)
--- NOTE | 2020-10-01 10:34 | PDOC.HOSPP ---
- Subjective Encounter Date: 10/01/20 Encounter Time: 10:25 Subjective: f/u for UTI due to indwelling Navarro catheter in context of previous CVA/bed bound/sacral decubitus receiving Rocephin. - Objective Vital Signs & Weight: Vital Signs (12 hours) Temp Pulse Resp BP Pulse Ox 10/01/20 08:00 100 10/01/20 07:15 99.4 F 82 20 117/80 100 10/01/20 04:07 97.8 F 83 18 126/86 100 10/01/20 00:30 99 F 80 18 117/82 98 Weight Weight 185 lb 7.986 oz I&O: 09/30/20 10/01/20 10/02/20 06:59 06:59 06:59 Intake Total 10 240 Output Total 250 Balance -240 240 Result Diagrams: 10/01/20 06:12 10/01/20 06:12 Additional Labs: Microbiology 06/28/20 15:33 Sacral - Ulcer Bacterial Culture - Final 06/28/20 15:33 Sacral - Ulcer Anaerobic Culture - Final Morganella morganii ssp paras Proteus mirabilis Anaerobic Gram Negative Cocci Anaerobic Gram Positive Lexx Anaerobic Gram Negative Lexx Anaerobic Gram Negative Lexx#2 06/28/20 06:00 Sacral Bacterial Culture - Final Presumptive Escherichia coli Gram Negative Lexx#2 Gram Negative Lexx#3 Presumptive Proteus mirabilis 06/27/20 17:55 Venous blood - Left Arm Blood Culture - Final NO GROWTH IN 5 DAYS 06/27/20 17:54 Venous blood - Left Arm Blood Culture - Final NO GROWTH IN 5 DAYS 09/30/20 17:20 Venous blood - Right Hand Blood Culture - Preliminary Specimen has been received and culture in progress. No Growth to date. 09/30/20 17:20 Venous blood - Right Arm Blood Culture - Preliminary Specimen has been received and culture in progress. No Growth to date. Laboratory Tests 09/30/20 09/30/20 09/30/20 17:20 17:20 17:20 WBC 11.0 H Potassium 3.7 Carbon Dioxide 19 L Lactic Acid 1.8 SARS-CoV-2 RNA ([facility]OLAS) 10/01/20 03:20 WBC Potassium Carbon Dioxide Lactic Acid SARS-CoV-2 RNA ([facility]) Not Detected Radiology Reviewed by me: Yes (PCXR - no acute process, R supraclavicular density) Hospitalist ROS - Medication Medications: Active Medications Generic Name Dose Route Start Last Admin Trade Name Meg PRN Reason Stop Dose Admin Enoxaparin Sodium 40 mg 10/01/20 09:00 10/01/20 08:17 Enoxaparin Sodium 40 Mg/0.4 Ml Syringe SC 40 mg 0900 SUZANNA Administration Famotidine 20 mg 10/01/20 09:00 10/01/20 08:17 Famotidine 20 Mg Tab PO 20 mg BID SUZANNA Administration Finasteride 5 mg 10/01/20 09:00 10/01/20 08:17 Finasteride 5 Mg Tab PO 5 mg DAILY SUZANNA Administration Fluoxetine HCl 20 mg 10/01/20 09:00 10/01/20 08:17 Fluoxetine Hcl 20 Mg Cap PO 20 mg DAILY SUZANNA Administration Zinc Sulfate 220 mg 10/01/20 09:00 10/01/20 08:17 Zinc Sulfate 220 Mg Cap PO 220 mg DAILY SUZANNA Administration Hospitalist Exam Vitals: Vital Signs (12 hours) Temp Pulse Resp BP Pulse Ox 10/01/20 08:00 100 10/01/20 07:15 99.4 F 82 20 117/80 100 10/01/20 04:07 97.8 F 83 18 126/86 100 10/01/20 00:30 99 F 80 18 117/82 98 Weight Weight 185 lb 7.986 oz General Appearance: ill appearing General - other findings: somnolent Eye: PERRL, anicteric sclera ENT: normocephalic atraumatic, no oropharyngeal lesions Neck: supple, symmetric, no JVD, no thyromegaly, no lymphadenopathy Heart: RRR, no gallops, no rubs, normal peripheral pulses Heart - other findings: S1, S2 Respiratory: CTAB, no wheezes, no rales, no ronchi, normal chest expansion Gastrointestinal: soft, non-tender, non-distended, normal bowel sounds, no palpable masses Extremities: no cyanosis Skin - other findings: Sacral/bilat heel decubitus ulceration Neurological - other findings: aphasic, bed bound Musculoskeletal: generalized weakness Psychiatric: flat affect, somnolent, lethargic Hosp A/P (1) UTI (urinary tract infection) Status: Acute Plan: Secondary to indwelling Navarro catheter, continue Rocephin, await final Ucx results (2) Acute metabolic encephalopathy Code(s): G93.41 - METABOLIC ENCEPHALOPATHY Status: Acute Plan: Secondary to #1, anticipate improvement with treatment of underlying UTI (3) Aphasia as late effect of cerebrovascular accident Code(s): I69.320 - APHASIA FOLLOWING CEREBRAL INFARCTION Status: Acute (4) Bedbound Code(s): Z74.01 - BED CONFINEMENT STATUS Status: Chronic (5) Sacral decubitus ulcer Code(s): L89.159 - PRESSURE ULCER OF SACRAL REGION, UNSPECIFIED STAGE Status: Chronic Qualifiers: Pressure injury stage: stage 4 Qualified Code(s): L89.154 - Pressure ulcer of sacral region, stage 4 Plan: Local WCT, turning protocol (6) Hypokalemia Code(s): E87.6 - HYPOKALEMIA Status: Acute Plan: Start Klor-con 20meq BID, serial K+ monitoring - Plan continue antibiotics, social work manager, speech therapy, DVT proph w/SCDs Continue Rocephin 1gm IV daily IV NS @ 100ml/h CM consult for dispo planning, ? SNF WCT consult for decubitus ulcers KCL 20meq BID AM lab: BMP
[2020-10-01] MEDS: Sodium Chloride 0.9% 1,000 ML IV SCH ×2 (11:51→22:05)
[2020-10-01] MEDS: Potassium Bicarbonate/Cit Ac 20 MEQ TAB PO SCH (18:29)
[2020-10-01] MEDS: cefTRIAXone\\ROCEPHIN 1 GM in Sodium Chloride 0.9% 100 ML IVPB SCH (22:09)
[2020-10-02 06:51] LABS: Anion Gap 11 mmol/L (10-20); BUN (Urea Nitrogen) 19 mg/dL (8.4-25.7); Calc. Creatinine Clearance 187 mL/min (70-130); Calcium 8.1 mg/dL (7.8-10.44); Carbon Dioxide 21 mmol/L (22-29); Chloride 112 mmol/L (98-107); Glucose 91 mg/dL (70-105); Sodium 141 mmol/L (136-145)
[2020-10-02] MEDS: Sodium Chloride 0.9% 1,000 ML IV SCH ×2 (08:35→17:41)
[2020-10-02] MEDS: Zinc Sulfate 220 MG CAP PO SCH (08:36)
[2020-10-02] MEDS: Potassium Bicarbonate/Cit Ac 20 MEQ TAB PO SCH ×2 (08:36→16:35)
[2020-10-02] MEDS: FLUoxetine HCl 20 MG CAP PO SCH (08:36)
[2020-10-02] MEDS: Enoxaparin Sodium 40 MG/0.4 ML SYRINGE SC SCH (08:36)
[2020-10-02] MEDS: Famotidine 20 MG TAB PO SCH ×2 (08:36→22:27)
[2020-10-02] MEDS: Finasteride 5 MG TAB PO SCH (08:36)
[2020-10-02] MEDS: Saccharomyces boulardii 250 MG CAP PO SCH (08:36)
--- NOTE | 2020-10-02 11:13 | PDOC.HOSPP ---
- Subjective Encounter Date: 10/02/20 Encounter Time: 11:00 Subjective: f/u for sepsis/UTI with Proteus spp on Rocephin currently. More alert and interactive today. - Objective Vital Signs & Weight: Vital Signs (12 hours) Temp Pulse Resp BP Pulse Ox 10/02/20 08:40 96 10/02/20 07:23 97.4 F L 64 14 99/62 96 10/02/20 04:00 98.9 F 68 20 120/77 96 Weight Weight 185 lb 7.986 oz I&O: 10/01/20 10/02/20 10/03/20 06:59 06:59 06:59 Intake Total 10 600 400 Output Total 250 150 Balance -240 600 250 Result Diagrams: 10/01/20 06:12 10/02/20 05:56 Additional Labs: Microbiology 06/28/20 15:33 Sacral - Ulcer Bacterial Culture - Final 06/28/20 15:33 Sacral - Ulcer Anaerobic Culture - Final Morganella morganii ssp paras Proteus mirabilis Anaerobic Gram Negative Cocci Anaerobic Gram Positive Lexx Anaerobic Gram Negative Lexx Anaerobic Gram Negative Lexx#2 06/28/20 06:00 Sacral Bacterial Culture - Final Presumptive Escherichia coli Gram Negative Lexx#2 Gram Negative Lexx#3 Presumptive Proteus mirabilis 06/27/20 17:55 Venous blood - Left Arm Blood Culture - Final NO GROWTH IN 5 DAYS 06/27/20 17:54 Venous blood - Left Arm Blood Culture - Final NO GROWTH IN 5 DAYS 09/30/20 20:10 Urine liu catheter Urine Culture - Preliminary Proteus mirabilis 09/30/20 17:20 Venous blood - Right Hand Blood Culture - Preliminary Specimen has been received and culture in progress. No Growth to date. 09/30/20 17:20 Venous blood - Right Arm Blood Culture - Preliminary Specimen has been received and culture in progress. No Growth to date. Laboratory Tests 09/30/20 09/30/20 09/30/20 17:20 17:20 17:20 WBC 11.0 H Potassium 3.7 Carbon Dioxide 19 L Lactic Acid 1.8 SARS-CoV-2 RNA ([facility]) 10/01/20 03:20 WBC Potassium Carbon Dioxide Lactic Acid SARS-CoV-2 RNA ([facility]) Not Detected Hospitalist ROS - Medication Medications: Active Medications Generic Name Dose Route Start Last Admin Trade Name Freq PRN Reason Stop Dose Admin Enoxaparin Sodium 40 mg 10/01/20 09:00 10/02/20 08:36 Enoxaparin Sodium 40 Mg/0.4 Ml Syringe SC 40 mg 0900 SUZANNA Administration Famotidine 20 mg 10/01/20 09:00 10/02/20 08:36 Famotidine 20 Mg Tab PO 20 mg BID SUZANNA Administration Finasteride 5 mg 10/01/20 09:00 10/02/20 08:36 Finasteride 5 Mg Tab PO 5 mg DAILY SUZANNA Administration Fluoxetine HCl 20 mg 10/01/20 09:00 10/02/20 08:36 Fluoxetine Hcl 20 Mg Cap PO 20 mg DAILY SUZANNA Administration Ceftriaxone Sodium 1 gm/ 100 mls @ 200 mls/hr 10/01/20 20:00 10/01/20 22:09 Sodium Chloride IVPB 100 mls Q24HR SUZANNA Administration Sodium Chloride 1,000 mls @ 100 mls/hr 10/01/20 11:00 10/02/20 08:35 Normal Saline 0.9% IV 1,000 mls .Q10H SUZANNA Administration Potassium Bicarbonate/Citric Acid 20 meq 10/01/20 17:00 10/02/20 08:36 Potassium Bicarbonate/Cit Ac 20 Meq Tab PO 20 meq BID-WM SUZANNA Administration Saccharomyces Boulardii 250 mg 10/02/20 09:00 10/02/20 08:36 Saccharomyces Boulardii 250 Mg Cap PO 250 mg DAILY SUZANNA Administration Zinc Sulfate 220 mg 10/01/20 09:00 10/02/20 08:36 Zinc Sulfate 220 Mg Cap PO 220 mg DAILY SUZANNA Administration Hospitalist Exam Vitals: Vital Signs (12 hours) Temp Pulse Resp BP Pulse Ox 10/02/20 08:40 96 10/02/20 07:23 97.4 F L 64 14 99/62 96 10/02/20 04:00 98.9 F 68 20 120/77 96 Weight Weight 185 lb 7.986 oz General Appearance: awake alert General - other findings: responsive to questions Eye: PERRL, anicteric sclera ENT: normocephalic atraumatic, no oropharyngeal lesions Neck: supple, symmetric, no JVD, no thyromegaly, no lymphadenopathy Heart: RRR, no gallops, no rubs, normal peripheral pulses Heart - other findings: S1, S2 Respiratory: CTAB, no wheezes, no rales, no ronchi, normal chest expansion Gastrointestinal: soft, non-tender, non-distended, normal bowel sounds, no palpable masses Extremities: no cyanosis, 1+ LE edema Skin: normal turgor Skin - other findings: stage IV sacral decubitus, stage III heel ulcer R Neurological - other findings: bedbound chronic, L hemiplegia Musculoskeletal: generalized weakness Psychiatric: oriented to person, flat affect Hosp A/P (1) UTI (urinary tract infection) Status: Acute Plan: Proteus spp isolated from Ucx, continue Rocephin pending final sensitivities (2) Acute metabolic encephalopathy Code(s): G93.41 - METABOLIC ENCEPHALOPATHY Status: Acute Plan: Improved, continue supportive mgmt (3) Bedbound Code(s): Z74.01 - BED CONFINEMENT STATUS Status: Chronic (4) Sacral decubitus ulcer Code(s): L89.159 - PRESSURE ULCER OF SACRAL REGION, UNSPECIFIED STAGE Status: Chronic Qualifiers: Pressure injury stage: stage 4 Qualified Code(s): L89.154 - Pressure ulcer of sacral region, stage 4 Plan: s/p I &D per Gen surgery, local WCT, offload pressure, turning protocol (5) Hypokalemia Code(s): E87.6 - HYPOKALEMIA Status: Acute Plan: Increase KCL 40meq BID, repeat K+ in am - Plan continue antibiotics, high school social studies teacher, speech therapy Continue Rocephin 1gm IV daily IV NS @ 100ml/h CM consult for dispo planning, ? SNF WCT consult for decubitus ulcers Gen surgery for debridement of sacral/heel ulcers Increase KCL 40meq BID AM lab: BMP, CBC
--- NOTE | 2020-10-02 17:47 | CON ---
DATE OF CONSULTATION: HISTORY OF PRESENT ILLNESS: Nathan Rodriguez is a 59-year-old male patient, cared for at home by his family. He is admitted to the Hospitalist Service on 10/01/2020. I have been asked to see him regarding left heel decubitus and sacral decubitus. The patient has dementia secondary to previous CVA versus Alzheimer's and he is to see a neurologist soon. He experienced increased lethargy and diminished mental status. He is nonambulatory. On exam, the patient has a sacral decubitus with eschar approximately 6 x 4 cm. He has a left heel decubitus with eschar about 4 cm in diameter. There is no evidence of infection. White count 8, hemoglobin 11. Basic metabolic profile normal. ASSESSMENT AND PLAN: Sacral decubitus, plan bedside debridement. Left heel decubitus, plan bedside debridement with wound care. Job ID: [id number]
[2020-10-02] MEDS: cefTRIAXone\\ROCEPHIN 1 GM in Sodium Chloride 0.9% 100 ML IVPB SCH (22:26)
[2020-10-03] MEDS: Sodium Chloride 0.9% 1,000 ML IV SCH ×2 (06:19→17:00)
[2020-10-03 06:31] LABS: #Basophils 0.1 thou/uL (0.0-0.2); #Eosinphils 0.3 thou/uL (0.0-0.7); #Lymphocytes 1.2 thou/uL (1.20-3.40); #Monocytes 0.4 thou/uL (0.11-0.59); #Neutrophils 5.2 thou/uL (1.40-6.50); %Basophils 0.7 % (0.0-1.0); %Eosinophils 3.9 % (0.0-10.0); %Lymphocytes 16.6 % (21.0-51.0); %Neutrophils 72.8 % (42.0-75.0); Mean Corpuscular HGB CONC 32.8 g/dL (32.0-36.0); Mean Corpuscular Hemoglobin 30.2 pg (27.0-31.0); Mean Platelet Volume 6.9 fL (7.4-10.4); Platelet Count 316 thou/uL (130-400); RBC Distribution Width 12.4 % (11.5-14.5); Red Blood Cell (RBC) Count 3.33 mill/uL (4.70-6.10); White Blood Cell (WBC) Count 7.2 thou/uL (4.8-10.8)
[2020-10-03 07:01] LABS: Anion Gap 9 mmol/L (10-20); BUN (Urea Nitrogen) 10 mg/dL (8.4-25.7); Calc. Creatinine Clearance 211 mL/min (70-130); Calcium 7.7 mg/dL (7.8-10.44); Carbon Dioxide 23 mmol/L (22-29); Chloride 107 mmol/L (98-107); Glucose 86 mg/dL (70-105); Potassium 3.2 mmol/L (3.5-5.1); Sodium 136 mmol/L (136-145)
[2020-10-03] MEDS: Finasteride 5 MG TAB PO SCH (08:06)
[2020-10-03] MEDS: FLUoxetine HCl 20 MG CAP PO SCH (08:06)
[2020-10-03] MEDS: Zinc Sulfate 220 MG CAP PO SCH (08:06)
[2020-10-03] MEDS: Famotidine 20 MG TAB PO SCH ×2 (08:06→21:18)
[2020-10-03] MEDS: Enoxaparin Sodium 40 MG/0.4 ML SYRINGE SC SCH (08:06)
[2020-10-03] MEDS: Saccharomyces boulardii 250 MG CAP PO SCH (08:06)
[2020-10-03] MEDS: Potassium Bicarbonate/Cit Ac 20 MEQ TAB PO SCH ×2 (08:06→21:19)
--- NOTE | 2020-10-03 13:09 | PDOC.HOSPP ---
- Subjective Encounter Date: 10/03/20 Encounter Time: 13:05 Subjective: f/u for sepsis due to UTI and stage IV sacral and heel decubitus ulcers. Receiving IV Rocephin and s/p local debridement of decubitus. - Objective Vital Signs & Weight: Vital Signs (12 hours) Temp Pulse Resp BP BP Pulse Ox 10/03/20 11:47 97.7 F 84 19 98/65 98 10/03/20 08:15 96 10/03/20 07:14 98.7 F 75 16 124/83 96 Weight Admit Weight 185 lb 8 oz Weight 185 lb 7.986 oz I&O: 10/02/20 10/03/20 10/04/20 06:59 06:59 06:59 Intake Total 600 1120 Output Total 650 150 Balance 600 470 -150 Result Diagrams: 10/03/20 06:09 10/03/20 06:09 Additional Labs: Microbiology 06/28/20 15:33 Sacral - Ulcer Bacterial Culture - Final 06/28/20 15:33 Sacral - Ulcer Anaerobic Culture - Final Morganella morganii ssp paras Proteus mirabilis Anaerobic Gram Negative Cocci Anaerobic Gram Positive Lexx Anaerobic Gram Negative Lexx Anaerobic Gram Negative Lexx#2 06/28/20 06:00 Sacral Bacterial Culture - Final Presumptive Escherichia coli Gram Negative Lexx#2 Gram Negative Lexx#3 Presumptive Proteus mirabilis 06/27/20 17:55 Venous blood - Left Arm Blood Culture - Final NO GROWTH IN 5 DAYS 06/27/20 17:54 Venous blood - Left Arm Blood Culture - Final NO GROWTH IN 5 DAYS 09/30/20 20:10 Urine liu catheter Urine Culture - Preliminary Proteus mirabilis Gram Negative Lexx 09/30/20 20:10 Urine liu catheter Urine Culture - Preliminary Proteus mirabilis 09/30/20 17:20 Venous blood - Right Hand Blood Culture - Preliminary Specimen has been received and culture in progress. No Growth to date. 09/30/20 17:20 Venous blood - Right Arm Blood Culture - Preliminary Specimen has been received and culture in progress. No Growth to date. Laboratory Tests 09/30/20 09/30/20 09/30/20 17:20 17:20 17:20 WBC 11.0 H Potassium 3.7 Carbon Dioxide 19 L Lactic Acid 1.8 SARS-CoV-2 RNA ([facility]AS) 10/01/20 03:20 WBC Potassium Carbon Dioxide Lactic Acid SARS-CoV-2 RNA ([facility]) Not Detected Hospitalist ROS - Medication Medications: Active Medications Generic Name Dose Route Start Last Admin Trade Name Meg PRN Reason Stop Dose Admin Enoxaparin Sodium 40 mg 10/01/20 09:00 10/03/20 08:06 Enoxaparin Sodium 40 Mg/0.4 Ml Syringe SC 40 mg 0900 SUZANNA Administration Famotidine 20 mg 10/01/20 09:00 10/03/20 08:06 Famotidine 20 Mg Tab PO 20 mg BID SUZANNA Administration Finasteride 5 mg 10/01/20 09:00 10/03/20 08:06 Finasteride 5 Mg Tab PO 5 mg DAILY SUZANNA Administration Fluoxetine HCl 20 mg 10/01/20 09:00 10/03/20 08:06 Fluoxetine Hcl 20 Mg Cap PO 20 mg DAILY SUZANNA Administration Ceftriaxone Sodium 1 gm/ 100 mls @ 200 mls/hr 10/01/20 20:00 10/02/20 22:26 Sodium Chloride IVPB 100 mls Q24HR SUZANNA Administration Sodium Chloride 1,000 mls @ 100 mls/hr 10/01/20 11:00 10/03/20 06:19 Normal Saline 0.9% IV Not Given .Q10H SUZANNA Potassium Bicarbonate/Citric Acid 40 meq 10/02/20 17:00 10/03/20 08:06 Potassium Bicarbonate/Cit Ac 20 Meq Tab PO 40 meq BID-WM SUZANNA Administration Saccharomyces Boulardii 250 mg 10/02/20 09:00 10/03/20 08:06 Saccharomyces Boulardii 250 Mg Cap PO 250 mg DAILY SUZANNA Administration Zinc Sulfate 220 mg 10/01/20 09:00 10/03/20 08:06 Zinc Sulfate 220 Mg Cap PO 220 mg DAILY SUZANNA Administration Hospitalist Exam Vitals: Vital Signs (12 hours) Temp Pulse Resp BP BP Pulse Ox 10/03/20 11:47 97.7 F 84 19 98/65 98 10/03/20 08:15 96 10/03/20 07:14 98.7 F 75 16 124/83 96 Weight Admit Weight 185 lb 8 oz Weight 185 lb 7.986 oz General - other findings: somnolent, opens eyes briefly to name Eye: PERRL, anicteric sclera ENT: normocephalic atraumatic, no oropharyngeal lesions Neck: supple, symmetric, no JVD, no thyromegaly, no lymphadenopathy Heart: RRR, no gallops, no rubs, normal peripheral pulses Heart - other findings: S1, S2 Respiratory: CTAB, no wheezes, no rales, no ronchi, normal chest expansion Gastrointestinal: soft, non-tender, non-distended, normal bowel sounds, no palpable masses Extremities: no cyanosis, no clubbing Skin - other findings: sacral/R heel decubitus ulcers Neurological: no new deficit, speech deficit Neurological - other findings: bedbound(chronic) Musculoskeletal: generalized weakness Psychiatric: oriented to person, somnolent, lethargic Hosp A/P (1) UTI (urinary tract infection) Status: Acute Plan: Proteus spp/Gm neg rods on Ucx, continue Rocephin pending final identification and sensitivities (2) Acute metabolic encephalopathy Code(s): G93.41 - METABOLIC ENCEPHALOPATHY Status: Acute (3) Bedbound Code(s): Z74.01 - BED CONFINEMENT STATUS Status: Chronic (4) Sacral decubitus ulcer Code(s): L89.159 - PRESSURE ULCER OF SACRAL REGION, UNSPECIFIED STAGE Status: Chronic Qualifiers: Pressure injury stage: stage 4 Qualified Code(s): L89.154 - Pressure ulcer of sacral region, stage 4 Plan: s/p I&D, local WCT, planning for outpt wound care options (5) Hypokalemia Code(s): E87.6 - HYPOKALEMIA Status: Acute Plan: Continue KCL supplementation - Plan continue antibiotics, 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 SNF, Family wishing for pt to return home with Guardian WCT consult for decubitus ulcers Gen surgery for debridement of sacral/heel ulcers Increase KCL 40meq BID Outpt complex wound care mgmt AM lab: BMP
--- NOTE | 2020-10-03 14:58 | PQF ---
CLINICAL DOCUMENTATION CLARIFICATION FORM: Dear Dr. Mishra Date: 10/03/2020 Please exercise your independent, professional judgment in responding to the clarification form. Clinical indicators are provided on the bottom of this form for your review. Please check appropriate box(es): [ ] Sepsis due to UTI due to indwelling Liu catheter. [ ] Sepsis due to UTI not due to indwelling Liu catheter. [ ] Sepsis due to other: [ ] Severe sepsis with associated acute organ dysfunction: [ ] Encephalopathy (metabolic) (septic) [ ] Additional/Other: please specify: [ x ] Localized infection without sepsis [ ] Other diagnosis [ ] Unable to determine In addition, please specify: Present on Admission (POA): [ x ] Yes [ ] No [ ] Unable to determine For continuity of documentation, please document condition throughout progress notes and discharge summary. Thank You. To be completed by CDI/Coding staff for physician review: CLINICAL INDICATORS - SIGNS / SYMPTOMS / LABS / RESULTS AND LOCATION IN MR *[facility] HPI: He has been admitted for UTI with sepsis. Plan: UTI-due to indwelling Liu *10/01 pn (Tad) Subjective: f/u for UTI due to indwelling Liu catheter in context of previous CVA/bed bound/ sacral decubitus *10/03 pn (Tad) Subjective: f/u for sepsis due to UTI and stage IV sacral and heel decubitus ulcers. A/P: UTI Proteus spp/gm neg rods on Ucx RISK FACTORS / RESULTS AND LOCATION IN MR *H&P 09/30 (Ariel): HPI: 59 yo with PMH of dementia from previous CVA vs Alzheimer's, sacral decubitus recently placed wound VAC 1 month ago, indwelling Liu since the last 1 month for healing of sacral decubitus. Appeared to have pulled out his Liu catheter since the last 3 days. *10/01 pn (Tad) A/P: UTI secondary to indwelling liu catheter. Acute metabolic encephalopathy TREATMENTS / RESULTS AND LOCATION IN MR *H&P 09/30 (Ariel): Plan: Start new Liu placed now. Follow urine culture *10/01 pn (Tad) Plan. Continue Rocephin 1 gm IV daily IV NS @ 100ml/h Thank you, Susan Cardenas, RN, BSN [email or web address] This is a permanent part of the Medical Record [facility]
[2020-10-03] MEDS ORDERED: Potassium Bicarbonate/Cit Ac 20 MEQ TAB ONE (16:55)
[2020-10-03] MEDS: Acetaminophen 325 MG TAB PO PRN (21:17)
[2020-10-03] MEDS: cefTRIAXone\\ROCEPHIN 1 GM in Sodium Chloride 0.9% 100 ML IVPB SCH (21:19)
[2020-10-04 07:21] LABS: Anion Gap 9 mmol/L (10-20); BUN (Urea Nitrogen) 10 mg/dL (8.4-25.7); Calc. Creatinine Clearance 211 mL/min (70-130); Calcium 8.2 mg/dL (7.8-10.44); Carbon Dioxide 26 mmol/L (22-29); Chloride 104 mmol/L (98-107); Glucose 88 mg/dL (70-105); Potassium 3.9 mmol/L (3.5-5.1); Sodium 135 mmol/L (136-145)
--- NOTE | 2020-10-04 07:56 | OP ---
DATE OF PROCEDURE: 10/02/2020 PREOPERATIVE DIAGNOSES: Advanced dementia versus stroke with nonambulatory status, cared for at home with decubitus left heel and sacrum. POSTOPERATIVE DIAGNOSES: Advanced dementia versus stroke with nonambulatory status, cared for at home with decubitus left heel and sacrum. PROCEDURES PERFORMED: Sharp excisional resectional decubitus sacrum, 6 x 4 cm to the sacrum. Excisional resectional 10 blade debridement of skin, subcutaneous tissue, and fascia down to the sacrum. Sharp excisional resectional 10 blade resection of skin and subcutaneous tissue, heel decubitus, measurements as above. DESCRIPTION OF PROCEDURE: The patient at bedside, after alcohol prep, the sacrum and left heel were debrided sharply, excisional resectional back to healthy tissue that was bleeding. Hemostasis gained with local pressure. The patient tolerated the procedure well. There was no purulence, but there was necrotic tissue. The patient tolerated the procedure well and Wound Care placed the dressings. He will need to keep the weight off his heels and I would recommend enzymatic debridement of sacrum and heel and then conversion to a wound VAC. Long-term prognosis for his lower extremities is poor. Job ID: [id number]
[2020-10-04] MEDS: Potassium Bicarbonate/Cit Ac 20 MEQ TAB PO SCH ×2 (09:55→18:19)
[2020-10-04] MEDS: Enoxaparin Sodium 40 MG/0.4 ML SYRINGE SC SCH (09:55)
[2020-10-04] MEDS: Famotidine 20 MG TAB PO SCH ×2 (09:55→20:25)
[2020-10-04] MEDS: Finasteride 5 MG TAB PO SCH (09:56)
[2020-10-04] MEDS: FLUoxetine HCl 20 MG CAP PO SCH (09:56)
[2020-10-04] MEDS: Zinc Sulfate 220 MG CAP PO SCH (09:56)
[2020-10-04] MEDS: Saccharomyces boulardii 250 MG CAP PO SCH (09:56)
[2020-10-04] MEDS: Sodium Chloride 0.9% 1,000 ML IV SCH ×4 (12:05→20:26)
--- NOTE | 2020-10-04 14:51 | PDOC.HOSPP ---
- Subjective Encounter Date: 10/04/20 Encounter Time: 14:45 Subjective: f/u for sepsis/UTI with Proteus/Providencia spp tx with Rocephin. No new issues noted. - Objective Vital Signs & Weight: Vital Signs (12 hours) Temp Pulse Resp BP Pulse Ox 10/04/20 10:53 98.5 F 87 22 H 117/83 96 10/04/20 07:24 98.1 F 83 18 110/66 96 10/04/20 04:00 98.6 F 78 20 127/87 96 Weight Admit Weight 185 lb 8 oz Weight 185 lb 7.986 oz I&O: 10/03/20 10/04/20 10/05/20 06:59 06:59 06:59 Intake Total 1120 1560 Output Total 650 1150 1800 Balance 470 -1150 -240 Result Diagrams: 10/03/20 06:09 10/04/20 06:48 Additional Labs: Microbiology 06/28/20 15:33 Sacral - Ulcer Bacterial Culture - Final 06/28/20 15:33 Sacral - Ulcer Anaerobic Culture - Final Morganella morganii ssp paras Proteus mirabilis Anaerobic Gram Negative Cocci Anaerobic Gram Positive Lexx Anaerobic Gram Negative Lexx Anaerobic Gram Negative Lexx#2 06/28/20 06:00 Sacral Bacterial Culture - Final Presumptive Escherichia coli Gram Negative Lexx#2 Gram Negative Lexx#3 Presumptive Proteus mirabilis 06/27/20 17:55 Venous blood - Left Arm Blood Culture - Final NO GROWTH IN 5 DAYS 06/27/20 17:54 Venous blood - Left Arm Blood Culture - Final NO GROWTH IN 5 DAYS 09/30/20 20:10 Urine liu catheter Urine Culture - Final Proteus mirabilis Providencia stuartii 09/30/20 20:10 Urine liu catheter Urine Culture - Preliminary Proteus mirabilis 09/30/20 17:20 Venous blood - Right Hand Blood Culture - Preliminary Specimen has been received and culture in prog ress. No Growth to date. 09/30/20 17:20 Venous blood - Right Arm Blood Culture - Preliminary Specimen has been received and culture in p rogress. No Growth to date. Laboratory Tests 09/30/20 09/30/20 09/30/20 17:20 17:20 17:20 WBC 11.0 H Potassium 3.7 Carbon Dioxide 19 L Lactic Acid 1.8 SARS-CoV-2 RNA ([facility]) 10/01/20 03:20 WBC Potassium Carbon Dioxide Lactic Acid SARS-CoV-2 RNA ([facility]) Not Detected Hospitalist ROS - Medication Medications: Active Medications Generic Name Dose Route Start Last Admin Trade Name Freq PRN Reason Stop Dose Admin Acetaminophen 650 mg 10/01/20 00:07 10/03/20 21:17 Acetaminophen 325 Mg Tab PO 650 mg Q4H PRN Administration Headache/Fever/Mild Pain (1-3) Enoxaparin Sodium 40 mg 10/01/20 09:00 10/04/20 09:55 Enoxaparin Sodium 40 Mg/0.4 Ml Syringe SC 40 mg 0900 SUZANNA Administration Famotidine 20 mg 10/01/20 09:00 10/04/20 09:55 Famotidine 20 Mg Tab PO 20 mg BID SUZANNA Administration Finasteride 5 mg 10/01/20 09:00 10/04/20 09:56 Finasteride 5 Mg Tab PO 5 mg DAILY SUZANNA Administration Fluoxetine HCl 20 mg 10/01/20 09:00 10/04/20 09:56 Fluoxetine Hcl 20 Mg Cap PO 20 mg DAILY SUZANNA Administration Ceftriaxone Sodium 1 gm/ 100 mls @ 200 mls/hr 10/01/20 20:00 10/03/20 21:19 Sodium Chloride IVPB 100 mls Q24HR SUZANNA Administration Sodium Chloride 1,000 mls @ 100 mls/hr 10/01/20 11:00 10/04/20 12:09 Normal Saline 0.9% IV Not Given .Q10H SUZANNA Potassium Bicarbonate/Citric Acid 40 meq 10/02/20 17:00 10/04/20 09:55 Potassium Bicarbonate/Cit Ac 20 Meq Tab PO 40 meq BID-WM SUZANNA Administration Saccharomyces Boulardii 250 mg 10/02/20 09:00 10/04/20 09:56 Saccharomyces Boulardii 250 Mg Cap PO 250 mg DAILY SUZANNA Administration Zinc Sulfate 220 mg 10/01/20 09:00 10/04/20 09:56 Zinc Sulfate 220 Mg Cap PO 220 mg DAILY SUZANNA Administration Hospitalist Exam Vitals: Vital Signs (12 hours) Temp Pulse Resp BP Pulse Ox 10/04/20 10:53 98.5 F 87 22 H 117/83 96 10/04/20 07:24 98.1 F 83 18 110/66 96 10/04/20 04:00 98.6 F 78 20 127/87 96 Weight Admit Weight 185 lb 8 oz Weight 185 lb 7.986 oz General Appearance: NAD, awake alert Eye: PERRL, anicteric sclera ENT: normocephalic atraumatic, no oropharyngeal lesions Neck: supple, symmetric, no JVD, no thyromegaly, no lymphadenopathy Heart: RRR, no gallops, no rubs, normal peripheral pulses Heart - other findings: S1, S2 Respiratory: CTAB, no wheezes, no rales, no ronchi, normal chest expansion Gastrointestinal: soft, non-tender, non-distended, normal bowel sounds, no palpable masses, no rigidity Extremities: no cyanosis, 1+ LE edema Skin - other findings: sacral/heel decubitus ulceration Neurological: no new deficit Neurological - other findings: L hemiplegia, bedbound status Musculoskeletal: generalized weakness Psychiatric: somnolent, lethargic Hosp A/P (1) UTI (urinary tract infection) Status: Acute Plan: Proteus/Providencia spp, continue Rocephin IV, IVF's (2) Acute metabolic encephalopathy Code(s): G93.41 - METABOLIC ENCEPHALOPATHY Status: Acute (3) Bedbound Code(s): Z74.01 - BED CONFINEMENT STATUS Status: Chronic (4) Sacral decubitus ulcer Code(s): L89.159 - PRESSURE ULCER OF SACRAL REGION, UNSPECIFIED STAGE Status: Chronic Qualifiers: Pressure injury stage: stage 4 Qualified Code(s): L89.154 - Pressure ulcer of sacral region, stage 4 Plan: s/p I&D with bedside debridement (5) Hypokalemia Code(s): E87.6 - HYPOKALEMIA Status: Acute Plan: Improved, continue K+ monitoring - Plan Continue Rocephin 1gm IV daily IV NS @ 75ml/h CM consult for dispo planning, ? SNF, Family wishing for pt to return home with [facility] WCT consult for decubitus ulcers Gen surgery for debridement of sacral/heel ulcers Increase KCL 40meq BID Outpt complex wound care mgmt
[2020-10-04] MEDS: cefTRIAXone\\ROCEPHIN 1 GM in Sodium Chloride 0.9% 100 ML IVPB SCH (20:26)
[2020-10-05] MEDS: Potassium Bicarbonate/Cit Ac 20 MEQ TAB PO SCH (09:12)
[2020-10-05] MEDS: Famotidine 20 MG TAB PO SCH ×2 (09:12→19:56)
[2020-10-05] MEDS: Enoxaparin Sodium 40 MG/0.4 ML SYRINGE SC SCH (09:12)
[2020-10-05] MEDS: Finasteride 5 MG TAB PO SCH (09:13)
[2020-10-05] MEDS: Zinc Sulfate 220 MG CAP PO SCH (09:13)
[2020-10-05] MEDS: Saccharomyces boulardii 250 MG CAP PO SCH (09:13)
[2020-10-05] MEDS: FLUoxetine HCl 20 MG CAP PO SCH (09:13)
--- NOTE | 2020-10-05 09:39 | PDOC.HOSPP ---
- Subjective Encounter Date: 10/05/20 Encounter Time: 09:30 Subjective: f/u sepsis/UTI/sacral/R heel decubitus ulcers tx with Rocephin/debridement. - Objective Vital Signs & Weight: Vital Signs (12 hours) Temp Pulse Resp BP Pulse Ox 10/05/20 08:00 99.0 F 80 20 119/82 96 10/05/20 00:00 99.4 F Weight Admit Weight 185 lb 8 oz Weight 185 lb 7.986 oz I&O: 10/04/20 10/05/20 10/06/20 06:59 06:59 06:59 Intake Total 1560 Output Total 1150 1800 Balance -1150 -240 Result Diagrams: 10/03/20 06:09 10/04/20 06:48 Additional Labs: Accuchecks 10/05/20 05:51 POC Glucose 105 H Microbiology 06/28/20 15:33 Sacral - Ulcer Bacterial Culture - Final 06/28/20 15:33 Sacral - Ulcer Anaerobic Culture - Final Morganella morganii ssp paras Proteus mirabilis Anaerobic Gram Negative Cocci Anaerobic Gram Positive Lexx Anaerobic Gram Negative Lexx Anaerobic Gram Negative Lexx#2 06/28/20 06:00 Sacral Bacterial Culture - Final Presumptive Escherichia coli Gram Negative Lexx#2 Gram Negative Lexx#3 Presumptive Proteus mirabilis 06/27/20 17:55 Venous blood - Left Arm Blood Culture - Final NO GROWTH IN 5 DAYS 06/27/20 17:54 Venous blood - Left Arm Blood Culture - Final NO GROWTH IN 5 DAYS 09/30/20 20:10 Urine liu catheter Urine Culture - Final Proteus mirabilis Providencia stuartii 09/30/20 20:10 Urine liu catheter Urine Culture - Preliminary Proteus mirabilis 09/30/20 17:20 Venous blood - Right Hand Blood Culture - Preliminary Specimen has been received and culture in prog ress. No Growth to date. 09/30/20 17:20 Venous blood - Right Arm Blood Culture - Preliminary Specimen has been received and culture in p rogress. No Growth to date. Laboratory Tests 09/30/20 09/30/20 09/30/20 17:20 17:20 17:20 WBC 11.0 H Potassium 3.7 Carbon Dioxide 19 L Lactic Acid 1.8 SARS-CoV-2 RNA ([facility]OLAS) 10/01/20 03:20 WBC Potassium Carbon Dioxide Lactic Acid SARS-CoV-2 RNA ([facility]AS) Not Detected Hospitalist ROS - Medication Medications: Active Medications Generic Name Dose Route Start Last Admin Trade Name Meg PRN Reason Stop Dose Admin Acetaminophen 650 mg 10/01/20 00:07 10/03/20 21:17 Acetaminophen 325 Mg Tab PO 650 mg Q4H PRN Administration Headache/Fever/Mild Pain (1-3) Enoxaparin Sodium 40 mg 10/01/20 09:00 10/05/20 09:12 Enoxaparin Sodium 40 Mg/0.4 Ml Syringe SC 40 mg 0900 SUZANNA Administration Famotidine 20 mg 10/01/20 09:00 10/05/20 09:12 Famotidine 20 Mg Tab PO 20 mg BID SUZANNA Administration Finasteride 5 mg 10/01/20 09:00 10/05/20 09:13 Finasteride 5 Mg Tab PO 5 mg DAILY SUZANNA Administration Fluoxetine HCl 20 mg 10/01/20 09:00 10/05/20 09:13 Fluoxetine Hcl 20 Mg Cap PO 20 mg DAILY SUZANNA Administration Ceftriaxone Sodium 1 gm/ 100 mls @ 200 mls/hr 10/01/20 20:00 10/04/20 20:26 Sodium Chloride IVPB 100 mls Q24HR SUZANNA Administration Sodium Chloride 1,000 mls @ 75 mls/hr 10/04/20 14:53 10/04/20 20:26 Normal Saline 0.9% IV 1,000 mls .[id number] SUZANNA Administration Potassium Bicarbonate/Citric Acid 40 meq 10/02/20 17:00 10/05/20 09:12 Potassium Bicarbonate/Cit Ac 20 Meq Tab PO 40 meq BID-WM SUZANNA Administration Saccharomyces Boulardii 250 mg 10/02/20 09:00 10/05/20 09:13 Saccharomyces Boulardii 250 Mg Cap PO 250 mg DAILY SUZANNA Administration Zinc Sulfate 220 mg 10/01/20 09:00 10/05/20 09:13 Zinc Sulfate 220 Mg Cap PO 220 mg DAILY SUZANNA Administration Hospitalist Exam Vitals: Vital Signs (12 hours) Temp Pulse Resp BP Pulse Ox 10/05/20 08:00 99.0 F 80 20 119/82 96 10/05/20 00:00 99.4 F Weight Admit Weight 185 lb 8 oz Weight 185 lb 7.986 oz General Appearance: awake alert General - other findings: responds slowly to questions Eye: PERRL, anicteric sclera ENT: normocephalic atraumatic, no oropharyngeal lesions Neck: supple, symmetric, no JVD, no thyromegaly, no lymphadenopathy Heart: RRR, no gallops, no rubs, normal peripheral pulses Heart - other findings: S1, S2 Respiratory: CTAB, no wheezes, no rales, no ronchi, normal chest expansion Gastrointestinal: soft, non-tender, non-distended, normal bowel sounds, no palpable masses Extremities: no cyanosis, 1+ LE edema Skin: normal turgor Neurological - other findings: bedbound at baseline, L hemiplegia Musculoskeletal: generalized weakness Psychiatric: oriented to person, flat affect, somnolent Hosp A/P (1) UTI (urinary tract infection) Status: Acute Plan: Continue Rocephin another 24h then convert to po option (2) Acute metabolic encephalopathy Code(s): G93.41 - METABOLIC ENCEPHALOPATHY Status: Acute Plan: Resolved (3) Bedbound Code(s): Z74.01 - BED CONFINEMENT STATUS Status: Chronic Plan: Baseline (4) Sacral decubitus ulcer Code(s): L89.159 - PRESSURE ULCER OF SACRAL REGION, UNSPECIFIED STAGE Status: Chronic Qualifiers: Pressure injury stage: stage 4 Qualified Code(s): L89.154 - Pressure ulcer of sacral region, stage 4 Plan: Local WCT, plan for outpt wound care services and HH with wound care (5) Hypokalemia Code(s): E87.6 - HYPOKALEMIA Status: Acute Plan: Decrease KCL 40meq daily - Plan continue antibiotics, social service technician Continue Rocephin 1gm IV daily Saline lock IVF CM consult for dispo planning, ? SNF, Family wishing for pt to return home with [facility] HH WCT consult for decubitus ulcers Plan for outpt wound care clinic weekly Increase KCL 40meq BID Outpt complex wound care mgmt Likely home in am 10/06/20
[2020-10-05] MEDS: Acetaminophen 325 MG TAB PO PRN (18:00)
[2020-10-05] MEDS: cefTRIAXone\\ROCEPHIN 1 GM in Sodium Chloride 0.9% 100 ML IVPB SCH (19:55)
--- NOTE | 2020-10-06 09:25 | PDOC.HOSPP ---
- Subjective Encounter Date: 10/06/20 Encounter Time: 09:10 Subjective: f/u for sepsis/UTI with Proteus spp/sacral/R heel ulcers treated with Rocephin/debridement. Temp spikes noted overnight up to T-100.3F. - Objective Vital Signs & Weight: Vital Signs (12 hours) Temp Pulse Resp BP Pulse Ox 10/06/20 06:18 98.7 F 78 18 97 10/06/20 00:00 98.0 F 82 18 124/78 96 Weight Admit Weight 185 lb 8 oz Weight 185 lb 7.986 oz I&O: 10/05/20 10/06/20 10/07/20 06:59 06:59 06:59 Intake Total 1560 240 Output Total 1800 1100 Balance -240 -860 Result Diagrams: 10/03/20 06:09 10/04/20 06:48 Additional Labs: Accuchecks 10/06/20 10/05/20 05:48 20:37 POC Glucose 82 125 H Microbiology 06/28/20 15:33 Sacral - Ulcer Bacterial Culture - Final 06/28/20 15:33 Sacral - Ulcer Anaerobic Culture - Final Morganella morganii ssp paras Proteus mirabilis Anaerobic Gram Negative Cocci Anaerobic Gram Positive Lexx Anaerobic Gram Negative Lexx Anaerobic Gram Negative Lexx#2 06/28/20 06:00 Sacral Bacterial Culture - Final Presumptive Escherichia coli Gram Negative Lexx#2 Gram Negative Lexx#3 Presumptive Proteus mirabilis 06/27/20 17:55 Venous blood - Left Arm Blood Culture - Final NO GROWTH IN 5 DAYS 06/27/20 17:54 Venous blood - Left Arm Blood Culture - Final NO GROWTH IN 5 DAYS 09/30/20 20:10 Urine liu catheter Urine Culture - Final Proteus mirabilis Providencia stuartii 09/30/20 20:10 Urine liu catheter Urine Culture - Preliminary Proteus mirabilis 09/30/20 17:20 Venous blood - Right Hand Blood Culture - Preliminary Specimen has been received and culture in progress. No Growth to date. 09/30/20 17:20 Venous blood - Right Arm Blood Culture - Preliminary Specimen has been received and culture in progress. No Growth to date. Laboratory Tests 09/30/20 09/30/20 09/30/20 17:20 17:20 17:20 WBC 11.0 H Potassium 3.7 Carbon Dioxide 19 L Lactic Acid 1.8 SARS-CoV-2 RNA ([facility]) 10/01/20 03:20 WBC Potassium Carbon Dioxide Lactic Acid SARS-CoV-2 RNA ([facility]) Not Detected Hospitalist ROS - Medication Medications: Active Medications Generic Name Dose Route Start Last Admin Trade Name Freq PRN Reason Stop Dose Admin Acetaminophen 650 mg 10/01/20 00:07 10/05/20 18:00 Acetaminophen 325 Mg Tab PO 650 mg Q4H PRN Administration Headache/Fever/Mild Pain (1-3) Enoxaparin Sodium 40 mg 10/01/20 09:00 10/05/20 09:12 Enoxaparin Sodium 40 Mg/0.4 Ml Syringe SC 40 mg 0900 SUZANNA Administration Famotidine 20 mg 10/01/20 09:00 10/05/20 19:56 Famotidine 20 Mg Tab PO 20 mg BID SUZANNA Administration Finasteride 5 mg 10/01/20 09:00 10/05/20 09:13 Finasteride 5 Mg Tab PO 5 mg DAILY SUZANNA Administration Fluoxetine HCl 20 mg 10/01/20 09:00 10/05/20 09:13 Fluoxetine Hcl 20 Mg Cap PO 20 mg DAILY SUZANNA Administration Ceftriaxone Sodium 1 gm/ 100 mls @ 200 mls/hr 10/01/20 20:00 10/05/20 19:55 Sodium Chloride IVPB 100 mls Q24HR SUZANNA Administration Saccharomyces Boulardii 250 mg 10/02/20 09:00 10/05/20 09:13 Saccharomyces Boulardii 250 Mg Cap PO 250 mg DAILY SUZANNA Administration Zinc Sulfate 220 mg 10/01/20 09:00 10/05/20 09:13 Zinc Sulfate 220 Mg Cap PO 220 mg DAILY SUZANNA Administration Hospitalist Exam Vitals: Vital Signs (12 hours) Temp Pulse Resp BP Pulse Ox 10/06/20 06:18 98.7 F 78 18 97 10/06/20 00:00 98.0 F 82 18 124/78 96 Weight Admit Weight 185 lb 8 oz Weight 185 lb 7.986 oz General Appearance: NAD, awake alert Eye: PERRL, anicteric sclera ENT: normocephalic atraumatic, no oropharyngeal lesions Neck: supple, symmetric, no JVD, no thyromegaly, no lymphadenopathy Heart: RRR, no gallops, no rubs, normal peripheral pulses Heart - other findings: S1, S2 Respiratory: CTAB, no wheezes, no rales, no ronchi, normal chest expansion Gastrointestinal: soft, non-tender, non-distended, normal bowel sounds, no palpable masses Extremities: no cyanosis, no clubbing, 1+ LE edema Skin: normal turgor Neurological - other findings: bedbound at baseline, L hemiplegia Musculoskeletal: generalized weakness Psychiatric: oriented to person, oriented to place, somnolent Hosp A/P (1) UTI (urinary tract infection) Status: Acute Plan: Proteus/Provendencia spp isolated, start Levaquin 750mg po Daily (2) Acute metabolic encephalopathy Code(s): G93.41 - METABOLIC ENCEPHALOPATHY Status: Acute Plan: Improved overall, likely due to underlying infectious process (3) Bedbound Code(s): Z74.01 - BED CONFINEMENT STATUS Status: Chronic (4) Sacral decubitus ulcer Code(s): L89.159 - PRESSURE ULCER OF SACRAL REGION, UNSPECIFIED STAGE Status: Chronic Qualifiers: Pressure injury stage: stage 4 Qualified Code(s): L89.154 - Pressure ulcer of sacral region, stage 4 Plan: s/p debridement, continue local WCT, outpt wound care services, Levaquin 750mg po daily (5) Hypokalemia Code(s): E87.6 - HYPOKALEMIA Status: Acute - Plan continue antibiotics, social media campaign manager, DVT proph w/SCDs Start Levaquin 750mg po daily Saline lock IVF CM consult for dispo planning, Family wishing for pt to return home with [facility] HH WCT consult for decubitus ulcers Plan for outpt wound care clinic weekly KCL 40meq daily Outpt complex wound care mgmt Lab: CBC today Likely home in am 10/07/20
[2020-10-06] MEDS: Zinc Sulfate 220 MG CAP PO SCH (09:32)
[2020-10-06] MEDS: Enoxaparin Sodium 40 MG/0.4 ML SYRINGE SC SCH (09:32)
[2020-10-06] MEDS: Finasteride 5 MG TAB PO SCH (09:32)
[2020-10-06] MEDS: Potassium Bicarbonate/Cit Ac 20 MEQ TAB PO SCH (09:32)
[2020-10-06] MEDS: Famotidine 20 MG TAB PO SCH ×2 (09:32→21:08)
[2020-10-06] MEDS: Saccharomyces boulardii 250 MG CAP PO SCH (09:32)
[2020-10-06] MEDS: FLUoxetine HCl 20 MG CAP PO SCH (09:32)
[2020-10-06 09:49] LABS: #Basophils 0.1 thou/uL (0.0-0.2); #Eosinphils 0.2 thou/uL (0.0-0.7); #Monocytes 0.6 thou/uL (0.11-0.59); #Neutrophils 5.3 thou/uL (1.40-6.50); %Basophils 0.7 % (0.0-1.0); %Eosinophils 3.2 % (0.0-10.0); %Lymphocytes 13.4 % (21.0-51.0); %Monocytes 8.4 % (0.0-10.0); %Neutrophils 74.2 % (42.0-75.0); Hemoglobin 10.3 g/dL (14.0-18.0); Mean Corpuscular HGB CONC 33.7 g/dL (32.0-36.0); Mean Corpuscular Hemoglobin 31.4 pg (27.0-31.0); Mean Corpuscular Volume 93.3 fL (78.0-98.0); Mean Platelet Volume 6.8 fL (7.4-10.4); Platelet Count 317 thou/uL (130-400); RBC Distribution Width 12.7 % (11.5-14.5); Red Blood Cell (RBC) Count 3.28 mill/uL (4.70-6.10); White Blood Cell (WBC) Count 7.1 thou/uL (4.8-10.8)
[2020-10-06] MEDS: cefTRIAXone\\ROCEPHIN 1 GM in Sodium Chloride 0.9% 100 ML IVPB SCH (21:08)
[2020-10-07] MEDS: Saccharomyces boulardii 250 MG CAP PO SCH (08:55)
[2020-10-07] MEDS: Famotidine 20 MG TAB PO SCH ×2 (08:55→21:28)
[2020-10-07] MEDS: Potassium Bicarbonate/Cit Ac 20 MEQ TAB PO SCH (08:55)
[2020-10-07] MEDS: Zinc Sulfate 220 MG CAP PO SCH (08:56)
[2020-10-07] MEDS: FLUoxetine HCl 20 MG CAP PO SCH (08:56)
[2020-10-07] MEDS: Finasteride 5 MG TAB PO SCH (08:56)
[2020-10-07] MEDS: Enoxaparin Sodium 40 MG/0.4 ML SYRINGE SC SCH (08:56)
--- NOTE | 2020-10-07 18:05 | PDOC.HOSPP ---
- Subjective Encounter Date: 10/07/20 Encounter Time: 18:03 Subjective: Mr. Rodriguez was seen today in follow-up of decubitus ulcer. He is essentially non-verbal and can not express his medical concerns. There have been no complaints expressed by the nursing staff. They report he has been eating and drinking well. - Objective Vital Signs & Weight: Vital Signs (12 hours) Temp Pulse Resp BP Pulse Ox 10/07/20 16:14 98.1 F 79 18 122/81 98 10/07/20 11:38 98.0 F 80 20 102/69 96 10/07/20 08:00 98.6 F 77 20 121/82 99 Weight Admit Weight 185 lb 8 oz Weight 185 lb 7.986 oz I&O: 10/06/20 10/07/20 10/08/20 06:59 06:59 06:59 Intake Total 240 Output Total 1100 500 500 Balance -860 -500 -500 Result Diagrams: 10/06/20 09:35 10/04/20 06:48 Hospitalist ROS - Medication Medications: Active Medications Generic Name Dose Route Start Last Admin Trade Name Freq PRN Reason Stop Dose Admin Acetaminophen 650 mg 10/01/20 00:07 10/05/20 18:00 Acetaminophen 325 Mg Tab PO 650 mg Q4H PRN Administration Headache/Fever/Mild Pain (1-3) Enoxaparin Sodium 40 mg 10/01/20 09:00 10/07/20 08:56 Enoxaparin Sodium 40 Mg/0.4 Ml Syringe SC 40 mg 0900 SUZANNA Administration Famotidine 20 mg 10/01/20 09:00 10/07/20 08:55 Famotidine 20 Mg Tab PO 20 mg BID SUZANNA Administration Finasteride 5 mg 10/01/20 09:00 10/07/20 08:56 Finasteride 5 Mg Tab PO 5 mg DAILY SUZANNA Administration Fluoxetine HCl 20 mg 10/01/20 09:00 10/07/20 08:56 Fluoxetine Hcl 20 Mg Cap PO 20 mg DAILY SUZANNA Administration Ceftriaxone Sodium 1 gm/ 100 mls @ 200 mls/hr 10/01/20 20:00 10/06/20 21:08 Sodium Chloride IVPB 100 mls Q24HR SUZANNA Administration Levofloxacin 750 mg 10/06/20 06:00 10/07/20 05:25 Levofloxacin 750 Mg Tab PO 750 mg 0600 SUZANNA Administration Potassium Bicarbonate/Citric Acid 40 meq 10/06/20 08:00 10/07/20 08:55 Potassium Bicarbonate/Cit Ac 20 Meq Tab PO 40 meq QAM-WM SUZANNA Administration Saccharomyces Boulardii 250 mg 10/02/20 09:00 10/07/20 08:55 Saccharomyces Boulardii 250 Mg Cap PO 250 mg DAILY SUZANNA Administration Zinc Sulfate 220 mg 10/01/20 09:00 10/07/20 08:56 Zinc Sulfate 220 Mg Cap PO 220 mg DAILY SUZANNA Administration Hospitalist Exam Vitals: Vital Signs (12 hours) Temp Pulse Resp BP Pulse Ox 10/07/20 16:14 98.1 F 79 18 122/81 98 10/07/20 11:38 98.0 F 80 20 102/69 96 10/07/20 08:00 98.6 F 77 20 121/82 99 Weight Admit Weight 185 lb 8 oz Weight 185 lb 7.986 oz General Appearance: NAD, awake alert Eye: PERRL, anicteric sclera Heart: RRR, no murmur, no gallops, no rubs, normal peripheral pulses Respiratory: CTAB, no wheezes, no rales, no ronchi, normal chest expansion, no tachypnea, normal percussion Gastrointestinal: soft, non-tender, non-distended, normal bowel sounds, no palpable masses, no hepatomegaly Extremities: no cyanosis (pulses are palpable), 1+ LE edema Hosp A/P (1) Sacral decubitus ulcer Code(s): L89.159 - PRESSURE ULCER OF SACRAL REGION, UNSPECIFIED STAGE Status: Chronic Qualifiers: Pressure injury stage: stage 4 Qualified Code(s): L89.154 - Pressure ulcer of sacral region, stage 4 (2) UTI (urinary tract infection) Status: Acute (3) Bedbound Code(s): Z74.01 - BED CONFINEMENT STATUS Status: Chronic (4) H/O: CVA (cerebrovascular accident) Code(s): Z86.73 - PRSNL HX OF TIA (TIA), AND CEREB INFRC W/O RESID DEFICITS Status: Chronic (5) HTN (hypertension) Code(s): I10 - ESSENTIAL (PRIMARY) HYPERTENSION Status: Chronic Qualifiers: Hypertension type: essential hypertension Qualified Code(s): I10 - Essential (primary) hypertension - Plan * Infected Sacral Decubitus ulcer- this has been debrided by surgery. Continue local wound care. He will need outpatient wound care arranged * UTI- urine culture is growing Proteus and Providencia- both sensitive to Quinolones * HTN- blood pressure is stable * Continue DVT and GI prophylaxis
[2020-10-07] MEDS: cefTRIAXone\\ROCEPHIN 1 GM in Sodium Chloride 0.9% 100 ML IVPB SCH (21:28)
[2020-10-08 06:15] LABS: #Eosinphils 0.2 thou/uL (0.0-0.7); #Lymphocytes 0.9 thou/uL (1.20-3.40); #Monocytes 0.7 thou/uL (0.11-0.59); #Neutrophils 4.5 thou/uL (1.40-6.50); %Basophils 0.3 % (0.0-1.0); %Eosinophils 2.8 % (0.0-10.0); %Lymphocytes 14.2 % (21.0-51.0); %Monocytes 10.4 % (0.0-10.0); %Neutrophils 72.2 % (42.0-75.0); Hemoglobin 10.4 g/dL (14.0-18.0); Mean Corpuscular HGB CONC 33.7 g/dL (32.0-36.0); Mean Corpuscular Hemoglobin 31.1 pg (27.0-31.0); Mean Corpuscular Volume 92.5 fL (78.0-98.0); Mean Platelet Volume 6.5 fL (7.4-10.4); Platelet Count 364 thou/uL (130-400); RBC Distribution Width 12.8 % (11.5-14.5); Red Blood Cell (RBC) Count 3.34 mill/uL (4.70-6.10); White Blood Cell (WBC) Count 6.3 thou/uL (4.8-10.8)
[2020-10-08 06:39] LABS: Anion Gap 13 mmol/L (10-20); BUN (Urea Nitrogen) 6 mg/dL (8.4-25.7); Calc. Creatinine Clearance 194 mL/min (70-130); Calcium 8.5 mg/dL (7.8-10.44); Carbon Dioxide 21 mmol/L (22-29); Chloride 104 mmol/L (98-107); Glucose 81 mg/dL (70-105); Potassium 3.9 mmol/L (3.5-5.1); Sodium 134 mmol/L (136-145)
[2020-10-08] MEDS: FLUoxetine HCl 20 MG CAP PO SCH (08:34)
[2020-10-08] MEDS: Famotidine 20 MG TAB PO SCH ×2 (08:34→20:48)
[2020-10-08] MEDS: Enoxaparin Sodium 40 MG/0.4 ML SYRINGE SC SCH (08:34)
[2020-10-08] MEDS: Potassium Bicarbonate/Cit Ac 20 MEQ TAB PO SCH (08:34)
[2020-10-08] MEDS: Saccharomyces boulardii 250 MG CAP PO SCH (08:34)
[2020-10-08] MEDS: Zinc Sulfate 220 MG CAP PO SCH (08:34)
[2020-10-08] MEDS: Finasteride 5 MG TAB PO SCH (08:35)
--- NOTE | 2020-10-08 17:10 | PDOC.HOSPP ---
- Subjective Encounter Date: 10/08/20 Encounter Time: 17:09 Subjective: Mr. Rodriguez was seen today in follow-up of infected sacral decubitus. He is laying in bed, and appears comfortable. WHen asked if he is hurting he denies this. - Objective Vital Signs & Weight: Vital Signs (12 hours) Temp Pulse Resp BP BP Pulse Ox 10/08/20 16:29 99.2 F 79 16 123/84 98 10/08/20 12:00 98.9 F 98 22 H 119/84 99 10/08/20 08:58 98.0 F 74 20 101/71 97 10/08/20 08:00 97 Weight Admit Weight 185 lb 8 oz Weight 185 lb 7.986 oz I&O: 10/07/20 10/08/20 10/09/20 06:59 06:59 06:59 Intake Total 130 Output Total 500 1000 Balance -500 -870 Result Diagrams: 10/08/20 05:53 10/08/20 05:53 Hospitalist ROS - Medication Medications: Active Medications Generic Name Dose Route Start Last Admin Trade Name Freq PRN Reason Stop Dose Admin Acetaminophen 650 mg 10/01/20 00:07 10/05/20 18:00 Acetaminophen 325 Mg Tab PO 650 mg Q4H PRN Administration Headache/Fever/Mild Pain (1-3) Enoxaparin Sodium 40 mg 10/01/20 09:00 10/08/20 08:34 Enoxaparin Sodium 40 Mg/0.4 Ml Syringe SC 40 mg 0900 SUZANNA Administration Famotidine 20 mg 10/01/20 09:00 10/08/20 08:34 Famotidine 20 Mg Tab PO 20 mg BID SUZANNA Administration Finasteride 5 mg 10/01/20 09:00 10/08/20 08:35 Finasteride 5 Mg Tab PO 5 mg DAILY SUZANNA Administration Fluoxetine HCl 20 mg 10/01/20 09:00 10/08/20 08:34 Fluoxetine Hcl 20 Mg Cap PO 20 mg DAILY SUZANNA Administration Ceftriaxone Sodium 1 gm/ 100 mls @ 200 mls/hr 10/01/20 20:00 10/07/20 21:28 Sodium Chloride IVPB 100 mls Q24HR SUZANNA Administration Levofloxacin 750 mg 10/06/20 06:00 10/08/20 04:51 Levofloxacin 750 Mg Tab PO 750 mg 0600 SUZANNA Administration Potassium Bicarbonate/Citric Acid 40 meq 10/06/20 08:00 10/08/20 08:34 Potassium Bicarbonate/Cit Ac 20 Meq Tab PO 40 meq QAM-WM SUZANNA Administration Saccharomyces Boulardii 250 mg 10/02/20 09:00 10/08/20 08:34 Saccharomyces Boulardii 250 Mg Cap PO 250 mg DAILY SUZANNA Administration Zinc Sulfate 220 mg 10/01/20 09:00 10/08/20 08:34 Zinc Sulfate 220 Mg Cap PO 220 mg DAILY SUZANNA Administration Hospitalist Exam Vitals: Vital Signs (12 hours) Temp Pulse Resp BP BP Pulse Ox 10/08/20 16:29 99.2 F 79 16 123/84 98 10/08/20 12:00 98.9 F 98 22 H 119/84 99 10/08/20 08:58 98.0 F 74 20 101/71 97 10/08/20 08:00 97 Weight Admit Weight 185 lb 8 oz Weight 185 lb 7.986 oz General Appearance: NAD, awake alert Eye: PERRL, anicteric sclera Heart: RRR, no murmur, no gallops, no rubs, normal peripheral pulses Respiratory: CTAB, no wheezes, no rales, no ronchi, normal chest expansion Gastrointestinal: soft, non-tender, non-distended, normal bowel sounds, no palpable masses, no hepatomegaly Extremities: no cyanosis, 1+ LE edema Hosp A/P (1) Sacral decubitus ulcer Code(s): L89.159 - PRESSURE ULCER OF SACRAL REGION, UNSPECIFIED STAGE Status: Chronic Qualifiers: Pressure injury stage: stage 4 Qualified Code(s): L89.154 - Pressure ulcer of sacral region, stage 4 (2) UTI (urinary tract infection) Status: Acute (3) Bedbound Code(s): Z74.01 - BED CONFINEMENT STATUS Status: Chronic (4) H/O: CVA (cerebrovascular accident) Code(s): Z86.73 - PRSNL HX OF TIA (TIA), AND CEREB INFRC W/O RESID DEFICITS Status: Chronic (5) HTN (hypertension) Code(s): I10 - ESSENTIAL (PRIMARY) HYPERTENSION Status: Chronic Qualifiers: Hypertension type: essential hypertension Qualified Code(s): I10 - Essential (primary) hypertension - Plan * Infected Sacral Decubitus ulcer- he is post debridement. Continue local wound care * UTI- urine culture is growing Proteus and Providencia- both sensitive to Quinolones * Will transition to oral antibiotics at discharge * HTN- blood pressure is stable * Continue DVT and GI prophylaxis
[2020-10-09] MEDS: Acetaminophen 325 MG TAB PO PRN (05:22)
[2020-10-09 08:13] VITALS: TEMP 98
[2020-10-09] MEDS: Potassium Bicarbonate/Cit Ac 20 MEQ TAB PO SCH (09:19)
[2020-10-09] MEDS: Finasteride 5 MG TAB PO SCH (09:20)
[2020-10-09] MEDS: Saccharomyces boulardii 250 MG CAP PO SCH (09:20)
[2020-10-09] MEDS: Enoxaparin Sodium 40 MG/0.4 ML SYRINGE SC SCH (09:20)
[2020-10-09] MEDS: Famotidine 20 MG TAB PO SCH (09:20)
[2020-10-09] MEDS: FLUoxetine HCl 20 MG CAP PO SCH (09:20)
[2020-10-09] MEDS: Zinc Sulfate 220 MG CAP PO SCH (09:20)
--- NOTE | 2020-10-09 13:38 | PDOC.HOSPP ---
- Subjective Encounter Date: 10/09/20 Encounter Time: 13:36 Subjective: Mr. Rodriguez was seen in follow-up of decubitus ulcer. He does not have any complaints. - Objective Vital Signs & Weight: Vital Signs (12 hours) Temp Pulse Resp BP Pulse Ox 10/09/20 07:20 98.0 F 78 20 119/84 97 Weight Admit Weight 185 lb 8 oz Weight 185 lb 7.986 oz I&O: 10/08/20 10/09/20 10/10/20 06:59 06:59 06:59 Intake Total 130 440 Output Total 1000 950 Balance -870 -510 Result Diagrams: 10/08/20 05:53 10/08/20 05:53 Hospitalist ROS - Medication Medications: Active Medications Generic Name Dose Route Start Last Admin Trade Name Freq PRN Reason Stop Dose Admin Acetaminophen 650 mg 10/01/20 00:07 10/09/20 05:22 Acetaminophen 325 Mg Tab PO 650 mg Q4H PRN Administration Headache/Fever/Mild Pain (1-3) Enoxaparin Sodium 40 mg 10/01/20 09:00 10/09/20 09:20 Enoxaparin Sodium 40 Mg/0.4 Ml Syringe SC 40 mg 0900 SUZANNA Administration Famotidine 20 mg 10/01/20 09:00 10/09/20 09:20 Famotidine 20 Mg Tab PO 20 mg BID SUZANNA Administration Finasteride 5 mg 10/01/20 09:00 10/09/20 09:20 Finasteride 5 Mg Tab PO 5 mg DAILY SUZANNA Administration Fluoxetine HCl 20 mg 10/01/20 09:00 10/09/20 09:20 Fluoxetine Hcl 20 Mg Cap PO 20 mg DAILY SUZANNA Administration Levofloxacin 750 mg 10/06/20 06:00 10/09/20 05:17 Levofloxacin 750 Mg Tab PO 750 mg 0600 SUZANNA Administration Potassium Bicarbonate/Citric Acid 40 meq 10/06/20 08:00 10/09/20 09:19 Potassium Bicarbonate/Cit Ac 20 Meq Tab PO 40 meq QAM-WM SUZANNA Administration Saccharomyces Boulardii 250 mg 10/02/20 09:00 10/09/20 09:20 Saccharomyces Boulardii 250 Mg Cap PO 250 mg DAILY SUZANNA Administration Zinc Sulfate 220 mg 10/01/20 09:00 10/09/20 09:20 Zinc Sulfate 220 Mg Cap PO 220 mg DAILY SUZANNA Administration Hospitalist Exam Vitals: Vital Signs (12 hours) Temp Pulse Resp BP Pulse Ox 10/09/20 07:20 98.0 F 78 20 119/84 97 Weight Admit Weight 185 lb 8 oz Weight 185 lb 7.986 oz General Appearance: NAD, awake alert Eye: PERRL, anicteric sclera Heart: RRR, no murmur, no gallops, no rubs, normal peripheral pulses Respiratory: CTAB, no wheezes, no rales, no ronchi, normal chest expansion, no tachypnea, normal percussion Gastrointestinal: soft, non-tender, non-distended, normal bowel sounds, no palpable masses, no hepatomegaly Extremities: no cyanosis, 2+ LE edema Hosp A/P (1) Sacral decubitus ulcer Code(s): L89.159 - PRESSURE ULCER OF SACRAL REGION, UNSPECIFIED STAGE Status: Chronic Qualifiers: Pressure injury stage: stage 4 Qualified Code(s): L89.154 - Pressure ulcer of sacral region, stage 4 (2) UTI (urinary tract infection) Status: Acute (3) Bedbound Code(s): Z74.01 - BED CONFINEMENT STATUS Status: Chronic (4) H/O: CVA (cerebrovascular accident) Code(s): Z86.73 - PRSNL HX OF TIA (TIA), AND CEREB INFRC W/O RESID DEFICITS Status: Chronic (5) HTN (hypertension) Code(s): I10 - ESSENTIAL (PRIMARY) HYPERTENSION Status: Chronic Qualifiers: Hypertension type: essential hypertension Qualified Code(s): I10 - Essential (primary) hypertension - Plan * Infected Sacral Decubitus ulcer- he is post debridement. Continue local wound care * UTI- urine culture is growing Proteus and Providencia- both sensitive to Quinolones * Will transition to oral antibiotics at discharge * HTN- blood pressure is stable * Continue DVT and GI prophylaxis
[2020-10-09 16:14] VITALS: BP 117/72
--- NOTE | 2020-10-09 17:57 | PDOC.DS.DS ---
Provider Date of Admission: 09/30/20 23:08 Date of Discharge: 10/09/20 Admitting Provider: Kedar George MD Consultations: General Surgery Primary Care Physician: Rosie Giraldo MD Course Hospital Course: Mr. Rodriguez is a pleasant 9 year old gentleman who has advanced dementia, and was brought to the hospital due to altered mental status. He was foun to have a UTI, as well as an infected sacral decubitus. Urine culture grew Proteus Mirabilis, and Provendicia Stuartii, both of which were sensitive to quinolones. He was seen by Dr. Weaver, with regards to the infected decubitus, an this was sharply debrided. He was offered a stay in half-way for further treatment of the decubitus, but his family members decided against this. Out patient wound care was arranged, an he was able to be discharged home with Home Health. He will complete a 10 day course of Levaquin, to treat both the decubitus as well as the UTI Resuscitation Status: 10/01/20 00:07 Resuscitation Status Routine Resuscitation Status: FULL: Full Resuscitation Discussed with: daughter Lab Results: 10/08/20 05:53 10/08/20 05:53 Abnormal Lab Results - Last 48 hrs 10/08/20 05:53: Sodium 134 L, Carbon Dioxide 21 L, BUN 6 L, Creatinine 0.50 L 10/08/20 05:53: RBC 3.34 L, Hgb 10.4 L, Hct 30.9 L, MCH 31.1 H, MPV 6.5 L, Lymphocytes % 14.2 L, Monocytes % 10.4 H, Lymphocytes # 0.9 L, Monocytes # 0.7 H Microbiology - Entire Visit 09/30/20 17:20 Venous blood - Right Hand Blood Culture - Final NO GROWTH IN 5 DAYS 09/30/20 17:20 Venous blood - Right Arm Blood Culture - Final NO GROWTH IN 5 DAYS 09/30/20 20:10 Urine liu catheter Urine Culture - Final Proteus mirabilis Providencia stuartii Vitals: Vital Signs (12 hours) Temp Pulse Resp BP BP Pulse Ox 10/09/20 16:00 98.0 F 82 20 117/72 98 10/09/20 07:20 98.0 F 78 20 119/84 97 Weight Admit Weight 185 lb 8 oz Weight 185 lb 7.986 oz Physical Exam: The patient was seen and examined on the day of discharge. Problem (1) Sacral decubitus ulcer Code(s): L89.159 - PRESSURE ULCER OF SACRAL REGION, UNSPECIFIED STAGE Status: Chronic Qualifiers: Pressure injury stage: stage 4 Qualified Code(s): L89.154 - Pressure ulcer of sacral region, stage 4 (2) UTI (urinary tract infection) Status: Acute (3) Bedbound Code(s): Z74.01 - BED CONFINEMENT STATUS Status: Chronic (4) H/O: CVA (cerebrovascular accident) Code(s): Z86.73 - PRSNL HX OF TIA (TIA), AND CEREB INFRC W/O RESID DEFICITS Status: Chronic (5) HTN (hypertension) Code(s): I10 - ESSENTIAL (PRIMARY) HYPERTENSION Status: Chronic Qualifiers: Hypertension type: essential hypertension Qualified Code(s): I10 - Essential (primary) hypertension Plan Prescriptions: Levofloxacin [Levaquin] 750 mg PO 0600 #7 tab Home Medications: Medication Instructions Recorded Confirmed Type FLUoxetine HCl [Fluoxetine HCl] 20 mg PO DAILY 06/28/20 06/28/20 History Finasteride 5 mg PO DAILY 06/28/20 06/28/20 History Fluticasone Propionate [Flonase 1 spray EA NARE BID 06/28/20 06/28/20 History Nasal Wilson] Omeprazole 40 mg PO DAILY 06/28/20 06/28/20 History Saccharomyces boulardii [Florastor] 250 mg PO DAILY #30 cap 07/11/20 Rx metroNIDAZOLE [Flagyl] 500 mg PO TID #90 tab 07/11/20 Rx Levofloxacin [Levaquin] 750 mg PO 0600 #7 tab 10/09/20 Rx Allergies: No Known Drug Allergies Allergy (Verified 10/01/20 01:13) Discharge Instructions:: YOUR PRESCRIPTIONS WERE SENT TO: [facility] [address] [place] [address] Activity:: Activity as Tolerated Nourishment:: Heart Healthy Diet Referrals: [facility], [facility] [Other] (Please followup at the [facility] as directed. ) [facility] [Outside] Rosie Giraldo MD [Primary Care Provider] - Disposition: HOME HEALTH Quality CORE MEASURES:: N/A
== END 2020-10-09 16:28 | disposition home health service (06) | DRG 673 ==
LOC: ERS 16:52 → T4-A 23:08
PROVIDERS: ADMIT Internal Medicine; ATTEND Internal Medicine
PROC: 0JB70ZZ Excision of Back Subcutaneous Tissue and Fascia, Open Approach (ICD-10-PCS; principal; 2020-10-02)
PROC: 0JBR0ZZ Excision of Left Foot Subcutaneous Tissue and Fascia, Open Approach (ICD-10-PCS; 2020-10-02)
DX: T83.511A Infection and inflammatory reaction due to indwelling urethral catheter, initial encounter (principal); L89.154 Pressure ulcer of sacral region, stage 4; G93.41 Metabolic encephalopathy; N39.0 Urinary tract infection, site not specified; Z20.822 Contact with and (suspected) exposure to COVID-19; B96.4 Proteus (mirabilis) (morganii) as the cause of diseases classified elsewhere; B96.89 Other specified bacterial agents as the cause of diseases classified elsewhere; I10 Essential (primary) hypertension; G30.9 Alzheimer's disease, unspecified; E87.6 Hypokalemia; F02.80 Dementia in other diseases classified elsewhere, unspecified severity, without behavioral disturbance, psychotic disturbance, mood disturbance, and anxiety; L89.619 Pressure ulcer of right heel, unspecified stage; F32.9 Major depressive disorder, single episode, unspecified; Z74.01 Bed confinement status; Z87.891 Personal history of nicotine dependence; I69.320 Aphasia following cerebral infarction
CPT/HCPCS: 36415; 36416; 51702; 71045; 80048; 80053; 81003; 81015; 83605; 85007; 85025; 85027; 87040; 87077; 87086; 87186; 87635; 96365; 96375; J0696; J1650; J3370; J3490; U0003; U0005

== ENCOUNTER 2020-10-30 21:02 | Inpatient (IN) | payer MEDICARE ==
[2020-10-30 21:38] LABS: Hemoglobin 12.6 g/dL (14.0-18.0); Mean Corpuscular Hemoglobin 29.7 pg (27.0-31.0); Mean Corpuscular Volume 92.8 fL (78.0-98.0); Mean Platelet Volume 6.4 fL (7.4-10.4); Platelet Count 616 thou/uL (130-400); RBC Distribution Width 13.1 % (11.5-14.5); Red Blood Cell (RBC) Count 4.24 mill/uL (4.70-6.10); White Blood Cell (WBC) Count 20.1 thou/uL (4.8-10.8)
[2020-10-30 21:41] LABS: Bacteria/HPF 3+ HPF (None Seen); Bilirubin 1+ (Negative); Blood, Urine 1+ (Negative); Clarity Extra Turbid (Clear); Glucose, Urine (Dipstick) Normal (Negative); Ketone, Urine Negative (Negative); Leukocyte 500 Leu/uL (Negative); Nitrite 2+ (Negative); Protein, Urine (Dipstick) 300 mg/dL (Neg-Trace); RBC/HPF 21-50 HPF (0-3); Specific Gravity, Urine 1.035 (1.002-1.036); Squamous Epithelial None Seen HPF (0-3); WBC/HPF Greater than 50 HPF (0-3); pH, Urine 6.5 (5.0-9.0)
[2020-10-30] MEDS ORDERED: Vancomycin 1 GM/200 ML BAG ONE (21:47)
[2020-10-30] MEDS ORDERED: Cefepime 2 GM VIAL ONE (21:47)
[2020-10-30 21:57] LABS: ALT (SGPT) 10 U/L (8-55); AST (SGOT) 14 U/L (5-34); Albumin 3.7 g/dL (3.5-5.0); Alkaline Phosphatase 118 U/L (40-110); Anion Gap 17 mmol/L (10-20); BUN (Urea Nitrogen) 18 mg/dL (8.4-25.7); Bilirubin, Total 0.4 mg/dL (0.2-1.2); Calc. Creatinine Clearance 0 mL/min (70-130); Calcium 9.1 mg/dL (7.8-10.44); Carbon Dioxide 22 mmol/L (22-29); Chloride 99 mmol/L (98-107); Eosinophils 1 % (0-10); Globulin 4.3 g/dL (2.4-3.5); Glucose 117 mg/dL (70-105); Hypochromia SLIGHT = 6-15 cells (100X) (0-5/hpf); Lymphocytes 6 % (21-51); MDiff Complete? YES; Monocytes 5 % (0-10); Neutrophil 88 % (42-75); Platelet Morphology Comment Appears Increased; Potassium 3.3 mmol/L (3.5-5.1); Sodium 135 mmol/L (136-145)
[2020-10-31] MEDS ORDERED: Ondansetron PF 4 MG/2 ML Vial IVP PRN (00:06)
[2020-10-31] MEDS ORDERED: Sodium Chloride 0.9% 1,000 ML IV SCH (00:15)
[2020-10-31 02:21] VITALS: BMI 33.6
[2020-10-31] MEDS: Sodium Chloride 0.9% 1,000 ML IV SCH ×2 (06:24→17:36)
[2020-10-31 07:50] LABS: #Eosinphils 0.1 thou/uL (0.0-0.7); #Lymphocytes 0.7 thou/uL (1.20-3.40); #Monocytes 0.9 thou/uL (0.11-0.59); #Neutrophils 9.9 thou/uL (1.40-6.50); %Basophils 0.3 % (0.0-1.0); %Eosinophils 0.6 % (0.0-10.0); %Lymphocytes 5.6 % (21.0-51.0); %Monocytes 7.8 % (0.0-10.0); %Neutrophils 85.8 % (42.0-75.0); Hemoglobin 9.7 g/dL (14.0-18.0); Mean Corpuscular Hemoglobin 30.6 pg (27.0-31.0); Mean Corpuscular Volume 92.7 fL (78.0-98.0); Mean Platelet Volume 6.4 fL (7.4-10.4); Platelet Count 410 thou/uL (130-400); Red Blood Cell (RBC) Count 3.16 mill/uL (4.70-6.10); White Blood Cell (WBC) Count 11.5 thou/uL (4.8-10.8)
[2020-10-31 08:15] LABS: Anion Gap 11 mmol/L (10-20); BUN (Urea Nitrogen) 12 mg/dL (8.4-25.7); Calc. Creatinine Clearance 218 mL/min (70-130); Calcium 7.6 mg/dL (7.8-10.44); Carbon Dioxide 19 mmol/L (22-29); Chloride 106 mmol/L (98-107); Glucose 92 mg/dL (70-105); Sodium 133 mmol/L (136-145)
[2020-10-31] MEDS: Vancomycin 1 GM in Premix Bag 1 BAG IVPB SCH ×2 (08:30→15:56)
[2020-10-31 08:35] LABS: SARS-CoV-2 PCR by NAA Not Detected (NotDetected)
[2020-10-31] MEDS: Cefepime 2 GM in Sodium Chloride 0.9% 100 ML IVPB SCH ×2 (10:18→20:40)
[2020-10-31] MEDS ORDERED: Potassium Phosphate 30 MMOL in Sodium Chloride 0.9% 250 ML 250 ML IVPB SCH (11:15)
[2020-10-31] MEDS: Acetaminophen 325 MG TAB PO PRN (20:39)
[2020-10-31] MEDS ORDERED: FLU VACC QS2020-21(6MOS UP)/PF 60 MCG/0.5 ML SYRINGE IM ONE (21:00)
[2020-10-31 23:39] LABS: Vancomycin, Trough 10.8 ug/mL
[2020-11-01] MEDS: Vancomycin 1.5 GRAM/300 ML BAG 1.5 GM in Premix Bag 1 BAG IVPB SCH ×4 (01:14→23:40)
[2020-11-01] MEDS: Sodium Chloride 0.9% 1,000 ML IV SCH ×3 (01:17→23:40)
[2020-11-01 05:29] LABS: Anion Gap 12 mmol/L (10-20); BUN (Urea Nitrogen) 5 mg/dL (8.4-25.7); Calc. Creatinine Clearance 223 mL/min (70-130); Calcium 7.6 mg/dL (7.8-10.44); Carbon Dioxide 18 mmol/L (22-29); Chloride 105 mmol/L (98-107); Glucose 80 mg/dL (70-105); Potassium 3.4 mmol/L (3.5-5.1); Sodium 132 mmol/L (136-145)
[2020-11-01 06:38] LABS: Hemoglobin 9.6 g/dL (14.0-18.0); Mean Corpuscular HGB CONC 33.3 g/dL (32.0-36.0); Mean Corpuscular Hemoglobin 30.3 pg (27.0-31.0); Mean Platelet Volume 5.8 fL (7.4-10.4); Platelet Count 356 thou/uL (130-400); RBC Distribution Width 12.9 % (11.5-14.5); Red Blood Cell (RBC) Count 3.16 mill/uL (4.70-6.10); White Blood Cell (WBC) Count 8.4 thou/uL (4.8-10.8)
[2020-11-01 06:40] LABS: #Basophils 0.1 thou/uL (0.0-0.2); #Eosinphils 0.2 thou/uL (0.0-0.7); #Lymphocytes 0.5 thou/uL (1.20-3.40); #Monocytes 0.7 thou/uL (0.11-0.59); %Basophils 0.6 % (0.0-1.0); %Eosinophils 2.1 % (0.0-10.0); %Lymphocytes 5.9 % (21.0-51.0); %Monocytes 8.1 % (0.0-10.0); %Neutrophils 83.3 % (42.0-75.0)
[2020-11-01] MEDS: FLUoxetine HCl 20 MG CAP PO SCH (08:28)
[2020-11-01] MEDS: Enoxaparin Sodium 40 MG/0.4 ML SYRINGE SC SCH (08:28)
[2020-11-01] MEDS: Cefepime 2 GM in Sodium Chloride 0.9% 100 ML IVPB SCH ×2 (08:36→20:14)
[2020-11-01] MEDS: Acetaminophen 325 MG TAB PO PRN (14:51)
[2020-11-02 00:10] LABS: Vancomycin, Trough 10.1 ug/mL
[2020-11-02] MEDS: Acetaminophen 325 MG TAB PO PRN (02:57)
[2020-11-02 05:32] LABS: #Eosinphils 0.2 thou/uL (0.0-0.7); #Lymphocytes 0.6 thou/uL (1.20-3.40); #Monocytes 0.7 thou/uL (0.11-0.59); #Neutrophils 8.2 thou/uL (1.40-6.50); %Basophils 0.2 % (0.0-1.0); %Eosinophils 2.2 % (0.0-10.0); %Lymphocytes 6.5 % (21.0-51.0); %Monocytes 7.4 % (0.0-10.0); %Neutrophils 83.7 % (42.0-75.0); Hemoglobin 9.3 g/dL (14.0-18.0); Mean Corpuscular HGB CONC 33.5 g/dL (32.0-36.0); Mean Corpuscular Hemoglobin 30.9 pg (27.0-31.0); Mean Corpuscular Volume 92.2 fL (78.0-98.0); Mean Platelet Volume 6.3 fL (7.4-10.4); Platelet Count 405 thou/uL (130-400); RBC Distribution Width 12.8 % (11.5-14.5); White Blood Cell (WBC) Count 9.8 thou/uL (4.8-10.8)
[2020-11-02 05:58] LABS: Anion Gap 11 mmol/L (10-20); BUN (Urea Nitrogen) 4 mg/dL (8.4-25.7); Calc. Creatinine Clearance 233 mL/min (70-130); Carbon Dioxide 20 mmol/L (22-29); Chloride 106 mmol/L (98-107); Glucose 79 mg/dL (70-105); Potassium 3.4 mmol/L (3.5-5.1); Sodium 134 mmol/L (136-145)
[2020-11-02] MEDS: VANCOMYCIN 1.75 GM/350 ML BAG 1.75 GM in Premix Bag 1 BAG IVPB SCH ×3 (06:01→22:39)
[2020-11-02] MEDS: Enoxaparin Sodium 40 MG/0.4 ML SYRINGE SC SCH (09:47)
[2020-11-02] MEDS: FLUoxetine HCl 20 MG CAP PO SCH (09:47)
[2020-11-02] MEDS: Cefepime 2 GM in Sodium Chloride 0.9% 100 ML IVPB SCH (09:47)
[2020-11-02] MEDS: Sodium Chloride 0.9% 1,000 ML IV SCH ×2 (13:44→18:48)
[2020-11-03] MEDS ORDERED: VANCOMYCIN 1.75 GM/350 ML BAG 1.75 GM in Premix Bag 1 BAG IVPB SCH (07:30)
[2020-11-03] MEDS: Sodium Chloride 0.9% 1,000 ML IV SCH ×2 (07:42→18:15)
[2020-11-03] MEDS: Enoxaparin Sodium 40 MG/0.4 ML SYRINGE SC SCH (09:37)
[2020-11-03] MEDS: FLUoxetine HCl 20 MG CAP PO SCH (09:37)
[2020-11-03] MEDS: Finasteride 5 MG TAB PO SCH (09:37)
[2020-11-03] MEDS: Saccharomyces boulardii 250 MG CAP PO SCH (09:37)
[2020-11-03] MEDS: VANCOMYCIN 1.75 GM/350 ML BAG 1.75 GM in Premix Bag 1 BAG IVPB SCH (11:36)
[2020-11-03 14:28] LABS: Vancomycin, Random 14.9 ug/mL (See Comment)
[2020-11-03] MEDS: Sulfameth/Trimethoprim DS 800-160mg TAB PO SCH (20:29)
[2020-11-04] MEDS: Sodium Chloride 0.9% 1,000 ML IV SCH ×3 (00:41→14:36)
[2020-11-04] MEDS: Acetaminophen 325 MG TAB PO PRN (03:32)
[2020-11-04] MEDS: Finasteride 5 MG TAB PO SCH (08:05)
[2020-11-04] MEDS: Sulfameth/Trimethoprim DS 800-160mg TAB PO SCH ×2 (08:05→20:59)
[2020-11-04] MEDS: Saccharomyces boulardii 250 MG CAP PO SCH (08:05)
[2020-11-04] MEDS: Enoxaparin Sodium 40 MG/0.4 ML SYRINGE SC SCH (08:05)
[2020-11-04] MEDS: FLUoxetine HCl 20 MG CAP PO SCH (08:05)
[2020-11-05] MEDS: Sodium Chloride 0.9% 1,000 ML IV SCH ×2 (01:15→11:37)
[2020-11-05] MEDS ORDERED: Vancomycin HCl 1.25 GM in Sodium Chloride 0.9% 250 ML 300 ML IVPB SCH (09:00)
[2020-11-05] MEDS: Finasteride 5 MG TAB PO SCH (09:31)
[2020-11-05] MEDS: Saccharomyces boulardii 250 MG CAP PO SCH (09:31)
[2020-11-05] MEDS: FLUoxetine HCl 20 MG CAP PO SCH (09:31)
[2020-11-05] MEDS: Enoxaparin Sodium 40 MG/0.4 ML SYRINGE SC SCH (09:35)
[2020-11-05] MEDS: Cefepime 1 GM in Sodium Chloride 0.9% 100 ML IVPB SCH ×2 (09:35→20:15)
[2020-11-05 09:52] LABS: #Eosinphils 0.2 thou/uL (0.0-0.7); #Lymphocytes 0.3 thou/uL (1.20-3.40); #Monocytes 0.3 thou/uL (0.11-0.59); #Neutrophils 3.5 thou/uL (1.40-6.50); %Basophils 1.1 % (0.0-1.0); %Eosinophils 5.4 % (0.0-10.0); %Lymphocytes 7.3 % (21.0-51.0); %Monocytes 6.2 % (0.0-10.0); Hemoglobin 10.3 g/dL (14.0-18.0); Mean Corpuscular HGB CONC 33.6 g/dL (32.0-36.0); Mean Corpuscular Hemoglobin 30.9 pg (27.0-31.0); Platelet Count 372 thou/uL (130-400); Red Blood Cell (RBC) Count 3.33 mill/uL (4.70-6.10); White Blood Cell (WBC) Count 4.4 thou/uL (4.8-10.8)
[2020-11-05 10:01] LABS: Anion Gap 13 mmol/L (10-20); BUN (Urea Nitrogen) Less than 4 mg/dL (8.4-25.7); Calc. Creatinine Clearance 228 mL/min (70-130); Calcium 7.7 mg/dL (7.8-10.44); Carbon Dioxide 19 mmol/L (22-29); Chloride 107 mmol/L (98-107); Glucose 104 mg/dL (70-105); Sodium 136 mmol/L (136-145)
[2020-11-05 10:07] LABS: Potassium 2.9 mmol/L (3.5-5.1)
[2020-11-05] MEDS ORDERED: Potassium Chloride 20 MEQ TAB PO SCH (11:15)
[2020-11-05] MEDS: VANCOMYCIN 1.75 GM/350 ML BAG 1.75 GM in Premix Bag 1 BAG IVPB SCH ×2 (11:30→21:59)
[2020-11-05 16:41] LABS: Bacteria/HPF None Seen HPF (None Seen); Bilirubin Negative (Negative); Blood, Urine Negative (Negative); Clarity Clear (Clear); Glucose, Urine (Dipstick) Normal (Negative); Ketone, Urine Negative (Negative); Leukocyte Negative Leu/uL (Negative); Nitrite Negative (Negative); Protein, Urine (Dipstick) Negative (Neg-Trace); RBC/HPF 0-3 HPF (0-3); Specific Gravity, Urine 1.018 (1.002-1.036); Squamous Epithelial None Seen HPF (0-3); WBC/HPF 0-3 HPF (0-3); pH, Urine 6.5 (5.0-9.0)
[2020-11-05 16:42] LABS: Urine Culture Reflex No No
[2020-11-06] MEDS: Sodium Chloride 0.9% 1,000 ML IV SCH ×2 (06:18→12:33)
[2020-11-06] MEDS: Cefepime 1 GM in Sodium Chloride 0.9% 100 ML IVPB SCH ×2 (08:53→20:40)
[2020-11-06] MEDS: Enoxaparin Sodium 40 MG/0.4 ML SYRINGE SC SCH (08:54)
[2020-11-06] MEDS: Finasteride 5 MG TAB PO SCH (08:55)
[2020-11-06] MEDS: Saccharomyces boulardii 250 MG CAP PO SCH (08:55)
[2020-11-06] MEDS: FLUoxetine HCl 20 MG CAP PO SCH (08:55)
[2020-11-06] MEDS: VANCOMYCIN 1.75 GM/350 ML BAG 1.75 GM in Premix Bag 1 BAG IVPB SCH ×2 (09:49→21:54)
[2020-11-06 21:43] LABS: Vancomycin, Trough 14.1 ug/mL
[2020-11-07] MEDS: Sodium Chloride 0.9% 1,000 ML IV SCH ×2 (00:28→09:17)
[2020-11-07 05:48] LABS: #Eosinphils 0.2 thou/uL (0.0-0.7); #Lymphocytes 0.6 thou/uL (1.20-3.40); #Monocytes 0.4 thou/uL (0.11-0.59); #Neutrophils 4.3 thou/uL (1.40-6.50); %Basophils 0.4 % (0.0-1.0); %Lymphocytes 10.7 % (21.0-51.0); %Monocytes 7.5 % (0.0-10.0); %Neutrophils 77.4 % (42.0-75.0); Hemoglobin 9.5 g/dL (14.0-18.0); Mean Corpuscular HGB CONC 33.6 g/dL (32.0-36.0); Mean Corpuscular Hemoglobin 30.8 pg (27.0-31.0); Mean Corpuscular Volume 91.8 fL (78.0-98.0); Mean Platelet Volume 5.8 fL (7.4-10.4); Platelet Count 388 thou/uL (130-400); Red Blood Cell (RBC) Count 3.07 mill/uL (4.70-6.10); White Blood Cell (WBC) Count 5.5 thou/uL (4.8-10.8)
[2020-11-07 06:24] LABS: Anion Gap 12 mmol/L (10-20); BUN (Urea Nitrogen) Less than 4 mg/dL (8.4-25.7); Calc. Creatinine Clearance 256 mL/min (70-130); Calcium 7.5 mg/dL (7.8-10.44); Carbon Dioxide 19 mmol/L (22-29); Chloride 106 mmol/L (98-107); Glucose 75 mg/dL (70-105); Potassium 3.4 mmol/L (3.5-5.1); Sodium 134 mmol/L (136-145)
[2020-11-07] MEDS: Enoxaparin Sodium 40 MG/0.4 ML SYRINGE SC SCH (09:17)
[2020-11-07] MEDS: FLUoxetine HCl 20 MG CAP PO SCH (09:18)
[2020-11-07] MEDS: Saccharomyces boulardii 250 MG CAP PO SCH (09:18)
[2020-11-07] MEDS: Finasteride 5 MG TAB PO SCH (09:18)
[2020-11-07 15:28] VITALS: BP 103/67; TEMP 98.8
== END 2020-11-07 19:18 | disposition home or self-care (01) | DRG 981 ==
LOC: ERS 21:02 → SURG A 23:48
PROVIDERS: ADMIT Internal Medicine; ATTEND Hospitalist
PROC: 0QB10ZZ Excision of Sacrum, Open Approach (ICD-10-PCS; principal; 2020-11-03)
DX: T83.511A Infection and inflammatory reaction due to indwelling urethral catheter, initial encounter (principal); L89.154 Pressure ulcer of sacral region, stage 4; A41.02 Sepsis due to Methicillin resistant Staphylococcus aureus; E87.2 Acidosis; N39.0 Urinary tract infection, site not specified; I10 Essential (primary) hypertension; F03.90 Unspecified dementia, unspecified severity, without behavioral disturbance, psychotic disturbance, mood disturbance, and anxiety; L89.629 Pressure ulcer of left heel, unspecified stage; L89.619 Pressure ulcer of right heel, unspecified stage; M24.559 Contracture, unspecified hip; Y84.6 Urinary catheterization as the cause of abnormal reaction of the patient, or of later complication, without mention of misadventure at the time of the procedure; Z96.651 Presence of right artificial knee joint; Z74.01 Bed confinement status; I69.320 Aphasia following cerebral infarction; Z87.891 Personal history of nicotine dependence
CPT/HCPCS: 36415; 51702; 71045; 80048; 80053; 80202; 81001; 81003; 81015; 83605; 85025; 86140; 87040; 87077; 87086; 87149; 87186; 87635; 93005; 96365; 96367; J0692; J1650; J3370; J3490; J7050; U0003; U0005

== ENCOUNTER 2020-12-14 13:47 | Emergency (ER) | payer MEDICARE ==
[2020-12-14] MEDS ORDERED: Boostrix 0.5 ML (Tdap) VIAL ONE ×2 (15:14→15:29)
[2020-12-15] MEDS ORDERED: Boostrix 0.5 ML (Tdap) VIAL IM ONE (15:30)
== END 2020-12-14 16:13 ==
LOC: ERS 13:47
DX: S06.0X9A Concussion with loss of consciousness of unspecified duration, initial encounter (principal); S01.81XA Laceration without foreign body of other part of head, initial encounter; K21.9 Gastro-esophageal reflux disease without esophagitis; I10 Essential (primary) hypertension; Z87.891 Personal history of nicotine dependence; Z79.899 Other long term (current) drug therapy; W07.XXXA Fall from chair, initial encounter
CPT/HCPCS: 12011; 70450; 71045; 72125; 90471; 90715

== ENCOUNTER 2020-12-24 12:12 | Emergency (ER) | payer MEDICARE ==
[2020-12-24 12:48] LABS: #Lymphocytes 1.2 thou/uL (1.20-3.40); #Monocytes 0.8 thou/uL (0.11-0.59); #Neutrophils 10.4 thou/uL (1.40-6.50); %Basophils 0.1 % (0.0-1.0); %Eosinophils 0.1 % (0.0-10.0); %Lymphocytes 9.5 % (21.0-51.0); %Monocytes 6.3 % (0.0-10.0); Hemoglobin 11.6 g/dL (14.0-18.0); Mean Corpuscular HGB CONC 31.4 g/dL (32.0-36.0); Mean Corpuscular Hemoglobin 29.5 pg (27.0-31.0); Mean Corpuscular Volume 93.9 fL (78.0-98.0); Mean Platelet Volume 6.6 fL (7.4-10.4); Platelet Count 445 thou/uL (130-400); RBC Distribution Width 14.9 % (11.5-14.5); Red Blood Cell (RBC) Count 3.92 mill/uL (4.70-6.10); White Blood Cell (WBC) Count 12.3 thou/uL (4.8-10.8)
[2020-12-24] MEDS ORDERED: cefTRIAXone\\ROCEPHIN 2 GM VIAL ONE (12:48)
[2020-12-24 13:09] LABS: ALT (SGPT) 10 U/L (8-55); AST (SGOT) 17 U/L (5-34); Albumin 3.5 g/dL (3.5-5.0); Alkaline Phosphatase 95 U/L (40-110); Anion Gap 17 mmol/L (10-20); BUN (Urea Nitrogen) 27 mg/dL (8.4-25.7); Bilirubin, Total 0.5 mg/dL (0.2-1.2); Calc. Creatinine Clearance 0 mL/min (70-130); Calcium 9.2 mg/dL (7.8-10.44); Carbon Dioxide 18 mmol/L (22-29); Chloride 110 mmol/L (98-107); Glucose 126 mg/dL (70-105); Potassium 4.3 mmol/L (3.5-5.1); Protein, Total 8.5 g/dL (6.0-8.3); Sodium 141 mmol/L (136-145)
[2020-12-24] MEDS ORDERED: EPINEPHrine 1 MG/10 ML Abboject SYRINGE ONE ×2 (13:44→13:50)
[2020-12-24] MEDS ORDERED: Magnesium 2 GM/50 ML BAG (IN WATER) ONE (13:45)
[2020-12-24] MEDS ORDERED: Rocuronium Bromide 10 MG/ML (10ML VIAL) ONE (13:49)
[2020-12-24] MEDS ORDERED: EPINEPHrine 1 MG/ML VIAL ONE ×2 (13:53→14:10)
[2020-12-24] MEDS ORDERED: Atropine Sulfate 1 mg/10 ml Syringe ONE (14:08)
== END 2020-12-24 14:40 | disposition expired ==
LOC: ERS 12:12
DX: I46.9 Cardiac arrest, cause unspecified (principal); L89.159 Pressure ulcer of sacral region, unspecified stage; A41.9 Sepsis, unspecified organism; R65.21 Severe sepsis with septic shock; N39.0 Urinary tract infection, site not specified; K21.9 Gastro-esophageal reflux disease without esophagitis; I10 Essential (primary) hypertension; Z87.891 Personal history of nicotine dependence
CPT/HCPCS: 80053; 83605; 85025; 87040; 93005; J0171; 31500; 36556; 51702; 96365; 96367; 96375; 96376; J0461; J0696; J3475